=== PATIENT | female | born 1970 | race Caucasian/White ===

== ENCOUNTER → 2016-09-17 | Outpatient (CLI) | payer OTHER, BC, MEDICARE ==
[~2016-09-17] MED LIST: /DULO30CA PO; ABIL5TAB PO; ACET500C; ALLE25CA PO; ALPR1TAB3 PO; AMITIZA PO; AMRIX; BACL10TA2 PO; BACL5TA PO; BENA25CA2 PO; CALCIUM PO; CELE40TA PO; CHEL50TA PO; CINN1CAP2 PO; CINN1CAP6 PO; DEXT10CA5 PO; DEXT10TA2 PO; DEXTROAMPHETAMINE PO; DULC5TAB PO; DULCOLAX PO; ECHI400C2 PO; ECHICAP PO; ELMIRON PO; FENO160T10 PO; FERR325T3 PO; FIORICET PO; FLEXERIL PO; FLON0.05 INH; FLON0.054; FLON1SPR; GARC500T PO; GINK1TAB PO; HYDR-3363 PO; HYDR-3716 PO; HYDR25T PO; IBUP200T45 PO; IBUP800T PO; IMIT100T PO; KAPIDEX PO; KEPP1TAB2 PO; KEPPRA PO; LAMI50TA2 PO; LATU20TA PO; LEVO25TABR OR; LEVO75TA4 PO; LIDO1CRE14 TOP; LIDO1CRE2 TOP; LIDO4CRE4 TOP; LIDO5DIS TOP; LIDOCAINE/PRILOCAINE EXT; LOPR50TA PO; MAGN250T2 PO; MAGN500C PO; MAGNESI PO; METFPOW4 PO; MIRALEX PO; MULTCAP PO; MULTIVIT PO; NORT25CA2 PO; NORT50CA PO; OCEA0.654; OMEG100011 PO; OPAN5TAB3 PO; OXYC10TA97 PO; PENT10CA PO; PERC5TAB8; PERC5TAB8 PO; PERI-COLACE PO; PHEN 25 PO; PHEN100T2 PO; PHEN1TAB80 PO; POTA595T8 PO; PRIL20CA9 PO; PROBCAP14 PO; PROBIOTICS PO; PROM-190 PO; RANI150T PO; RITA10TA OR; RITA10TA PO; SERO200T PO; SOMA350T PO; TIZA4CAP3 PO; TIZA4TAB3 PO; TRIC145T19 OR; TRILIPEX PO; TRILIPIX; TROS20TA3 PO; TYLE325T5 PO; TYLENOL #3 OR; VESICARE; VESICARE PO; VIT D 2000 PO; VITA1CAP2 PO; VITA400C; VITA400C PO; VITAMIN D50000 UNT PO; XANA0.25 PO; XANA0.5T PO; XANA1TAB2 PO; ZINC PO; ZINC30TA3 PO; [UNRECOGNIZED DRUG - CODE] PO; [UNRECOGNIZED DRUG - CODE] PO; [UNRECOGNIZED DRUG - OTHER] PO; amitiza PO; chromium PO; iodine PO; saline nasal spray
--- NOTE | 2016-09-27 00:02 | ECWPNPC ---
PATIENT NAME: JASPER PRIEST : 1970 GENDER: FEMALE VISIT DATE: 09/17/2016 DISCHARGE DATE: 09/17/16 1635 VISIT LOCKED DATE TIME: PHYSICIAN: HIRAL JETER RESOURCE: HIRAL JETER REASON FOR APPOINTMENT 1. W/C LEFT SHOULDER PAIN HISTORY OF PRESENT ILLNESS HISTORY OF PRESENT ILLNESS: PAIN THE PATIENT DESCRIBES THE PAIN... 45 YEAR OLD FEMALE PATIENT WITH HISTORY OF CHRONIC SHOULDER PAIN. PATIENT DESCRIBES THE PAIN ACHING, BURNING, SHARP, STABBING, TENDER, THROBBING, SORE, SHOOTING, AND HAVING IT ALL THE TIME WITH THE A PAIN SCORE OF 8/10. MRS. PRIEST WAS HURT IN A WORK RELATED INJURY IN 1999 WHEN SHE WAS USING A CONCETTA LIFT AT [facility] AND WAS PULLING THE CONCETTA LIFT AND SOMEONE HAD HELD ONTO THE LIFT AND SHE HURT HER SHOULDER IN THE PROCESS OF PULLING IT. PATIENT HAS RECEIVED ONE SHOULDER SURGERY IN EFFORT TO REPAIR TEARS BUT THE PATIENT STATES THAT IT IS STILL DIFFICULT TO MOVE HER SHOULDER AND SHE IS IN CONSTANT PAIN. CURRENTLY THE PATIENT IS USING TIZANIDINE, HYDROCODONE, AND LIDOCAINE CREAM TO HELP WITH THE PAIN AND SHE STATES THAT IT DOES HELP TO TAKE THE EDGE OFF. PATIENT DOES REPORT SEVERE CONSTIPATION FROM THIS MEDICATION AND STATES THAT SHE GOES SEVERAL DAYS WITHOUT BOWEL MOVEMENT. WHEN THE PATIENT DOES HAS A BOWEL MOVEMENT SHE STATES THAT IT IS VERY PAINFUL. PATIENT REPORTS TRYING PRESCRIBED LAXATIVES AND STOOL SOFTENERS, OVER THE COUNTER MEDICATION, AND DRINKING SIGNIFICANT AMOUNT OF WATER WITH NO RELIEF FROM THE CONSTIPATION. MRS. PRIEST WAS UNABLE TO RECEIVE THE PENNSAID OINTMENT IT DID NOT GET APPROVED BY INSURANCE. PATIENT REPORTS THAT ANY MOVEMENT OF HER SHOULDER INCREASES THE PAIN IN HER SHOULDER. MRS. PRIEST REPORTS HAVING TROUBLE SLEEPING DUE TO THE PAIN. PATIENT DENIES UNEXPLAINABLE WEIGHT LOSS, FEVER, CHILLS, NEW CHANGES ON HER URINARY CONTROL. FALL RISK SCREENING: SCREENING :NO FALLS IN THE PAST YEAR CURRENT MEDICATIONS TAKING LIDOCAINE 4 % CREAM SMALL AMT EXTERNALLY Q 6 HRS TO LEFT SHOULDER PRN PAIN TAKING ELMIRON 100 MG CAPSULE 1 CAPSULE ON AN EMPTY STOMACH ORALLY THREE TIMES A DAY TAKING XANAX 1 MG TABLET ORALLY FOUR TIMES DAILY TAKING KEPPRA 750 MG TABLET ORALLY EVERY 12 HRS TAKING FLONASE 50 MCG/ACT SUSPENSION 1 PUFF IN EACH NOSTRIL NASALLY ONCE DAILY NEEDED, NOTES: 6--16 TAKING PHENERGAN 25 MG/ML SOLUTION 0.5 ML NEEDED INJECTION EVERY 4 HRS TAKING PYRIDIUM 100 MG TABLET DIRECTED ORALLY TAKING BENADRYL 25 MG CAPSULE 1 CAPSULE ORALLY EVERY 6 HRS TAKING VITAMIN D3 2000 UNIT CAPSULE 1 TABLET ORALLY ONCE A DAY TAKING DULCOLAX 5 MG TABLET DELAYED RELEASE 2 TABLETS NEEDED FOR CONSTIPATION ORALLY ONCE A DAY TAKING HYDROXYZINE HCL 25 MG TABLET 1 TABLET NEEDED ORALLY EVERY 8 HRS TAKING SYNTHROID 75 MCG TABLET 1 TABLET ORALLY ONCE A DAY TAKING TROSPIUM CHLORIDE 20 MG TABLET 1 TABLET AT BEDTIME ON AN EMPTY STOMACH ORALLY BID TAKING PRILOSEC 20MG 20MG TABLET ORAL BID TAKING FENOFIBRATE 160 MG TABLET 1 TABLET WITH A MEAL ORALLY ONCE A DAY TAKING ZINC 50 MG TABLET 1 TABLET ORALLY ONCE A DAY TAKING MAGNESIUM 500 MG TABLET 1 TABLET WITH A MEAL ORALLY ONCE A DAY TAKING POTASSIUM GLUCONATE 595 MG TABLET ORALLY TAKING OMEGA-3 KRILL OIL 300 MG CAPSULE ORALLY TAKING CALCIUM 1000 MG 1 TAB ORAL DAILY TAKING PROBIOTIC CAPSULE ORALLY TAKING GARCINIA CAMBOGIA-CHROMIUM 500-200 MG-MCG TABLET ORALLY TAKING GINKGO BILOBA 400 MG CAPSULE ORALLY TAKING ECHINACEA COMB/FERNÁNDEZ SEAL CAPSULE ORALLY TAKING SALINE NASAL SPRAY 0.65 % SOLUTION NASALLY , NOTES: 1 WEEK TAKING DEXTROAMPHETAMINE SULFATE ER 10 MG CAPSULE EXTENDED RELEASE 24 HOUR 2 CAPSULES IN AM, 1 AT NOON ORALLY TAKING ZANAFLEX 4 MG TABLET 1 TABLET NEEDED ORALLY EVERY 8 HRS WORKERS COMP TAKING HYDROCODONE-ACETAMINOPHEN 7.5-325 MG TABLET 1 TABLET NEEDED ORALLY EVERY 6 HOURS PRN PAIN MDD=2 TAKING FOLIC ACID 1 MG TABLET ORALLY TAKING ZANTAC 150 MG TABLET 1 TABLET AT BEDTIME ORALLY BID TAKING MECLIZINE HCL 25 MG TABLET CHEWABLE 1 TABLET TID ORALLY 3 A DAY TAKING NORCO 7.5-325 MG TABLET 1 TABLET ORALLY EVERY 6 HRS PRN PAIN MDD=4 TAKING DRONABINOL 5 MG CAPSULE 1 CAPSULE BEFORE LUNCH AND SUPPER ORALLY TWICE A DAY NOT-TAKING PENNSAID 2 % SOLUTION 2 APPLICATIONS TO AFFECTED AREA TRANSDERMAL TWICE A DAY FOR PAIN, NOTES: W/C WILL NOT APPROVE NOT-TAKING LATUDA 20 MG TABLET 2 TABLETS WITH FOOD ORALLY ONCE A DAY NOT-TAKING SUMATRIPTAN SUCCINATE 100 MG TABLET DIRECTED ORALLY NOT-TAKING MOTRIN IB 200 MG TABLET 1 TABLET ORALLY EVERY 6 HRS NOT-TAKING FERROUS SULFATE 325 (65 FE) MG TABLET 1 TABLET ORALLY ONCE A DAY NOT-TAKING KAPIDEX 60 MG CAPSULE DELAYED RELEASE DIRECTED ORALLY NOT-TAKING AMITIZA 24 MCG CAPSULE 1 CAPSULE WITH FOOD ORALLY TWICE A DAY NOT-TAKING LIDODERM 5 % PATCH 1 PATCH TO INTACT SKIN REMOVE AFTER 12 HOURS EXTERNALLY ONCE A DAY NOT-TAKING MIRALAX PACKET 1 PACKET MIXED WITH 8 OUNCES OF FLUID ORALLY ONCE A DAY NOT-TAKING TRILIPIX 135 MG CAPSULE DELAYED RELEASE 1 CAPSULE ORALLY ONCE A DAY NOT-TAKING VESICARE 10 MG TABLET 1 TABLET ORALLY ONCE A DAY NOT-TAKING MULTIVITAMINS CAPSULE DIRECTED ORALLY NOT-TAKING VITAMIN E 400 UNIT TABLET CHEWABLE DIRECTED ORALLY NOT-TAKING KEPPRA 750 MG TABLET 2 TABLETS ORALLY EVERY 12 HRS NOT-TAKING OMEPRAZOLE 20 MG CAPSULE DELAYED RELEASE 2 CAPSULES ORALLY ONCE A DAY NOT-TAKING CINNAMON PLUS CHROMIUM 100-500 MCG-MG CAPSULE ORALLY NOT-TAKING TROSPIUM CHLORIDE 20 MG TABLET 1 TABLET AT BEDTIME ON AN EMPTY STOMACH ORALLY ONCE A DAY NOT-TAKING METFORMIN HCL 1000 MG TABLET 1 TABLET WITH MEALS ORALLY TWICE A DAY NOT-TAKING FLEXERIL 10 MG TABLET 1 TABLET ORALLY THREE TIMES A DAY NOT-TAKING OXYCONTIN 20 MG TABLET EXTENDED RELEASE 12 HOUR 1 TABLET ORALLY EVERY 12 HRS NOT-TAKING PERCOCET 5-325 MG TABLET 1 TABLET NEEDED ORALLY EVERY 6 HRS NOT-TAKING TYLENOL/CODEINE #3 300-30 MG TABLET 1 TABLET ORALLY ONE TAB AT ONSET OF MIGRAINE; MAY REPEAT X1 IN 4 HRS MDD=2 NOT-TAKING NORTRIPTYLINE HCL 50 MG CAPSULE 1 CAPSULE AT BEDTIME ORALLY ONCE A DAY NOT-TAKING ALPRAZOLAM 1 MG TABLET 1 TABLET ORALLY TWICE A DAY MEDICATION LIST REVIEWED AND RECONCILED WITH THE PATIENT PAST MEDICAL HISTORY FIBROMYALGIA HYPERTENTION HIGH CHOLESTEROL CHRONIC MIGRAINES DYSPAREUNIA HEMANGIOMA SEIZURES/NARCOLEPSY IC KIDNEY STONES IBS GERD CHRONIC PAIN PTSD VITAMIN D DEFICIENCY IRON DEFICIENCY ANEMIA HYPOTHYROIDISM ANXIETY DEPRESSION OSTEOARTHRITIS DDD-C6-7 CERVICAL NEURALGIA DIPLOPIA EXTREMITY PARESTHESIAS GALLBLADDER STONES OVARIAN CYST FIBRIODS HYPOGLYCEMIA BIPOLAR CARPAL TUNNEL -BILATERAL PATELLO FEMORAL SYNDROME-ZEENAT KNEES RENAL CANCER RIGHT ALLERGIES PENICILLIN (FOR ALLERGIES USE ONLY): RASH,ELEVATED TEMP: ALLERGY CYPROHEPTADINE HCL: RASH,HEART PALPITATIONS: ALLERGY DARVOCET-N 50: EXACERBATES HEADACHES: ALLERGY TOPAMAX: PALPITATIONS: ALLERGY REMERON: SEVERE HEADACHES: ALLERGY MOBIC: RECTAL BLEEDING ,ABDOMINAL PAIN: ALLERGY CELEBREX: THROAT EDEMA: ALLERGY NAPROSYN: THROAT EDEMA: ALLERGY EFFEXOR: SEVERE HEADACHES: ALLERGY VERAPAMIL HCL: SOB,LOWER PERIPHAL EDEMA ,ABDOMINAL DISTENTION: ALLERGY LYRICA: ELEVATED TEMP,GUMS RECECDED: ALLERGY DEPAKOTE: HEART PALPITATIONS: ALLERGY FENTANYL: SEVERE ITCHING: ALLERGY NUVIGIL: MIGRAINE HEADACHES,VERTIGO,DIZZINESS: ALLERGY CYMBALTA: HEADACHES: ALLERGY GANDOLINUM MRI DYE: CARDIAC ISSUES: ALLERGY CIPRO: CHEST PAIN,SOB,LBP: ALLERGY NORTRIPYTLINE HCL: HEADACHES: ALLERGY RITALIN: HEART PALPITATIONS: ALLERGY ADHESIVE BANDAGES: SENSITIVITY: ALLERGY CILANTRO: SOB,HEART PALPITATIONS: ALLERGY ASPARTAME: MIGRAINES: ALLERGY SEROQUEL: MULTIPLE SIDE EFFECTS: ALLERGY ABILIFY: CONSTIPATION DEPRESSION: SIDE EFFECTS CELEXA: MIGRAINES: SIDE EFFECTS LAMOTRIGINE: RAGE IRRITABILITY: SIDE EFFECTS ZYPREXA: MIGRAINES: SIDE EFFECTS MOTRIN: SIDE EFFECTS SURGICAL HISTORY OVARIES AND FALLOPIAN TUBES AND ADHESION 12/05/15 TUBAL LIGATION 01/06/1993 CYSTOSCOPES X2-3 2006 HYSTERSCOPES X2 08/08/2009 COLONSCOPY ENDOSCOPY LEFT LABRAL TEAR REPAIR WITH A PARTIAL REMOVAL OFCOLLAR BONE 12/23/2004 TOOTH EXTRACTIONS BX RIGHT KIDNEY 03/26/2016 RIGHT PARTIAL NEPHRECTOMY 05/04/16 FAMILY HISTORY NO FAMILY HISTORY DOCUMENTED. SOCIAL HISTORY GENERAL: TOBACCO USE ARE YOU A:NONSMOKER LEARNING BARRIERS / SPECIAL NEEDS ORIENTED TO PLAN OF CARE: PATIENT, PAIN MANAGEMENT PATIENT, ORIENTED TO PLAN OF CARE: PATIENT, PAIN MANAGEMENT PATIENT. NEW PATIENT PAIN DIARY TODAY'S VISITNOTES FROM 0-10, WHAT LEVEL IS YOUR PAIN TODAY?0 PAIN CLINIC PFS, CLERGY, PUBLIC HEALTH REFERRALS PFS REFERRAL NEEDED?NO CLERGY REFERRAL NEEDED?NO PUBLIC HEALTH REFERRAL NEEDED?NO WAS THE PROVIDER NOTIFIED OF ANY PERTINENT INFO?NO PFS REFERRAL NEEDED?NO CLERGY REFERRAL NEEDED?NO PUBLIC HEALTH REFERRAL NEEDED?NO WAS THE PROVIDER NOTIFIED OF ANY PERTINENT INFO?NO WITH 2 CHILDREN. HOSPITALIZATION/MAJOR DIAGNOSTIC PROCEDURE HYSTERECTOMY 01/06/93 08/27/91 CHILDBIRTH 01/05/93 CHILDBIRTH REVIEW OF SYSTEMS CONSTITUTIONAL: ANY CHANGE IN YOUR MEDICAL CONDITION? NO . CHILLS NO . FEVER NO . INFECTION: DO YOU HAVE NEW INFECTIONS? NO . DO YOU HAVE HISTORY OF MRSA? NO . MUSCULOSKELETAL: ANY NEW PATTERNS OF PAIN OR NUMBNESS? YES PT REPORTS PAIN FROM LEFT SHOULDER RADINATING UP THE LEFT NECK, BACK OF HEAD AND UP AROUND FOREHEAD CAUSING SEVER HEADACHES WITH VISION LOSS. ALSO REPORTS NEW ABDOMINAL PAIN . GASTROENTEROLOGY: ANY NEW CHANGE IN BOWEL CONTROL? YES INCREASED CONSTIPATION . GENITOURINARY: ANY NEW CHANGE IN BLADDER CONTROL? YES PT REPORTS DECREASED URINE OUTPUT . IS THERE A CHANCE YOU COULD BE ? NO . HEMATOLOGY/LYMPH: DO YOU TAKE ANY BLOOD THINNERS? (FOR EXAMPLE- COUMADIN, PLAVIX, AGGRENOX, PLATEL, PRADAXA, OR XARELTO) YES ELMIRON . WHEN WAS YOUR LAST DOSE? DATE: TIME: . NEUROLOGY: HAVE YOU FALLEN IN THE PAST 6 MONTHS? NO . ANY NEW EXTREMITY NUMBNESS OR WEAKNESS? NO . CARDIOLOGY: DO YOU HAVE A PACEMAKER OR DEFIBRILLATOR? NO . RESPIRATORY: HAVE YOU BEEN SICK IN THE PAST WEEK? YES PT REPORTS NAUSEA/VOMITING/HEADACHES AND FEVER OF 101 . FEVER NO . FLU LIKE SYMPTOMS? NO . COUGH NO . INTEGUMENTARY: DO YOU HAVE ANY RASHES OR OPEN SORES? NO . ALLERGIC/IMMUNO: ARE YOU ALLERGIC TO SHELLFISH OR IV DYE? YES . ANY NEW ALLERGIES? NO . PSYCHIATRIC: DO YOU HAVE THOUGHTS OF HURTING YOURSELF OR SOMEONE ELSE? NO . ARE YOU ABUSED, NEGLECTED, OR IN AN UNSAFE ENVIRONMENT? NO . ENDOCRINOLOGY: ARE YOU DIABETIC? NO . OTHER: DO YOU NEED ANY PRESCRIPTIONS? NO . IF YES, PLEASE LIST: ____ . ANY NEW PROBLEMS WITH YOUR MEDICATIONS? NO . WHEN DID YOU LAST EAT? ____ . WHEN DID YOU LAST DRINK? ____ . WHAT DID YOU LAST DRINK? ____ . NAME OF PERSON DRIVING YOU HOME? ____ . DO YOU HAVE ANY OTHER QUESTIONS OR CONCERNS YES PT WANTS TO KNOW IF A RESPONSE TO THE WORKMAN'S COMP HEARING LETTER HAS BEEN DONE? WOULD ALSO LIKE SOMETHING FOR CONSTIPATION R/T PAIN MEDS&NBSP;. REVIEWED BY: PROVIDER: HIRAL JETER MD . VITAL SIGNS WT 129 LBS, HT 66 IN, BMI 20.82 INDEX, BP 132/90 MM HG, HR 109 /MIN, RR 16 /MIN, TEMP 98.6 F, OXYGEN SAT % 98, NA INITIALS TL 1406, REVIEWED BY: LUIS ARMANDO. EXAMINATION : PATIENT IS ALERT O X 3 AND COOPERATIVE. TENDERNESS IN THE LEFT SHOULDER AREA. HYPERPATHIA IN THE BACK SHOULDER REGION. ALLODYNIA OVER SURFICAL SCAR OF RIGHT SHOULDER. LEFT ARM WEAKER THEN THE RIGHT AT EXTENSION AND FLEXION. LEFT HAND HELMINTHOLOGIST WEAKER THEN THE RIGHT. ABDUCTION OF LEFT ARM IS 30 DEGREES WHILE RIGHT ARM IS 90 DEGREES. MRI OF THE LEFT SHOULDER SHOWS TENDINITIS AND A ANTERIOR LABRAL TEAR. ASSESSMENTS SHOULDER PAIN, LEFT - M25.512 (PRIMARY) NEUROPATHY OF LEFT SHOULDERS/P LEFT SHOULDER SURGERY. TREATMENT SHOULDER PAIN, LEFT REFILL LIDOCAINE CREAM, 4 %, 1 STRIP, EXTERNALLY 2 INCHES, Q 6 HRS TO LEFT SHOULDER PRN PAIN, 30 DAYS, 3 TUBES, REFILLS 2 REFILL NORCO TABLET, 7.5-325 MG, 1 TABLET, ORALLY, EVERY 6 HRS PRN PAIN MDD=4, 30 DAY(S), 115, REFILLS 0 START MOVANTIK TABLET, 25 MG, 1 TABLET IN THE MORNING, ORALLY, ONCE A DAY PRN FOR CONSTIPATION, 30 DAY(S), 30, REFILLS 1 NOTES: WE DISCUSSED SEVERAL ISSUES WITH MRS. PRIEST'S PAIN MANAGEMENT CASE. AT THIS TIME THE PATIENT WILL CONTINUE WITH THE SAME MEDICATION REGIME BEFORE. PATIENT IS USING THE LIDOCAINE 5% FOR THE NEUROPATHIC PAIN OVER THE RIGHT SHOULDER ESPECIALLY OVER THE RIGHT SURGICAL SCAR AND SURROUNDING AREA. PATIENT USES THE NORCO FRO THE SOMATIC PAIN AND REPORTS INCREASED FUNCTIONALITY AND MOBILITY WITH A DECREASE IN PAIN WHILE USING THIS MEDICATION. MRS. PRIEST REPORTS BEING ABLE TO PERFORM EVERYDAY ACTIVITIES SUCH SHOWERING AND PUTTING CLOTHES ON WHILE USING THE MEDICATION. PATIENT IS USING TIZANIDINE FOR THE MUSCLE SPASMS AND PAIN AND REPORTS WHEN SHE TRIED TO STOP USING THIS MEDICATION HER MUSCLE SPASMS BECAME SO SEVERE SHE WAS UNABLE TO PERFORM EVERYDAY ACTIVITIES. PATIENT WILL START MOVANTIK FOR THE CONSTIPATION FROM THE NARCOTICS. MRS. PRIEST REPORTS USING SEVERAL MEDICATIONS SUCH COLACE, SENNA, MIRALAX, DUCLOUX, ALONG WITH OTHER OVER THE COUNTER MEDICATIONS WITH NO RELIEF FROM THE CONSTIPATION. THE PATIENT WILL BE PRESCRIBED PENNSAID OINTMENT FOR THE PAIN OVER THE RIGHT SHOULDER. PATIENT DENIES USE OF ILLEGAL SUBSTANCES, DENIES USE OF ILLEGAL DRUGS, DENIES ABUSE OF ANY MEDICATION AND STATES THAT SHE IS ONLY USING THE MEDICATION FOR PAIN MANAGEMENT. URINE TOXICOLOGY DONE ON 06/27/16 SHOWS CONSISTENT RESULTS WITH THE PATIENTS MEDICATION LIST. I WOULD LIKE TO SPEAK WITH PATIENT'S PSYCHIATRIST TO DISCUSS MEDICATIONS. PATIENT AGREES WITH THE PAIN AT THIS TIME. INSTRUCTIONS WERE GIVEN, QUESTIONS WERE ANSWERED, PATIENT REPORTS UNDERSTANDING AND AGREES WITH THE PLAN. I, DIAZ GRULLON, DOCUMENTED THE ABOVE INFORMATION ACTING A SCRIBE FOR DR. JETER. I HAVE REVIEWED THE ABOVE DOCUMENT, WRITTEN BY DIAZ CORRIGAN AND I VERIFY THAT IT IS ACCURATE. OTHERS REFILL ZANAFLEX TABLET, 4 MG, 1 TABLET NEEDED, ORALLY FOR SPASMS AND PAIN, EVERY 8 HRS WORKERS COMP MDD3, 30 DAY(S), 90, REFILLS 1 PROCEDURES PN WORKMANS' COMP OPINION IN YOUR OPINION, WAS THE INCIDENT THAT THE PATIENT DESCRIBED THE COMPETENT MEDICAL CAUSE OF THIS INJURY/ILLNESS? YES ARE THE PATIENT'S COMPLAINTS CONSISTENT WITH HIS/HER HISTORY OF THE INJURY/ILLNESS? YES IS THE PATIENT'S HISTORY OF THE INJURY/ILLNESS CONSISTENT WITH YOUR OBJECTIVE FINDING? YES WHAT IS THE PERCENTAGE OF TEMPORARY IMPAIRMENT? MARKED = 75% IS THE PATIENT WORKING? NO DOCTOR ON SITE: HIRAL COLLINS MD PROCEDURE CODES FA211 ESTABILISHED PATIENT [facility] FACILITY CHARGE G8427 DOC MEDS VERIFIED W/PT OR RE G8730 PAIN ASSESS POS TOOL F/U PLAN DOC FOLLOW UP 3 WEEKS ELECTRONICALLY SIGNED BY HIRAL JETER MD ON 09/26/2016 AT 06:00 PM EST DISCLAIMER : THIS IS A VISIT SUMMARY EXTRACTED FROM THE [employer] CHART. IT IS NOT A COPY OF THE [employer] PROGRESS NOTE. HECTOR
== END ==
LOC: M PAIN 14:00
PROVIDERS: ATTEND Anesthesiology
DX: Z09 Encounter for follow-up examination after completed treatment for conditions other than malignant neoplasm (principal); G89.29 Other chronic pain; M25.512 Pain in left shoulder; M79.7 Fibromyalgia; I10 Essential (primary) hypertension; E78.00 Pure hypercholesterolemia, unspecified; G43.909 Migraine, unspecified, not intractable, without status migrainosus; G40.919 Epilepsy, unspecified, intractable, without status epilepticus; K21.9 Gastro-esophageal reflux disease without esophagitis; K58.9 Irritable bowel syndrome, unspecified; K59.00 Constipation, unspecified; F43.10 Post-traumatic stress disorder, unspecified; E55.9 Vitamin D deficiency, unspecified; D50.9 Iron deficiency anemia, unspecified; E03.9 Hypothyroidism, unspecified; F41.9 Anxiety disorder, unspecified; M19.90 Unspecified osteoarthritis, unspecified site; M50.323 Other cervical disc degeneration at C6-C7 level; H53.2 Diplopia; F31.9 Bipolar disorder, unspecified; M22.2X1 Patellofemoral disorders, right knee; M22.2X2 Patellofemoral disorders, left knee; Z88.0 Allergy status to penicillin; Z88.5 Allergy status to narcotic agent; Z88.6 Allergy status to analgesic agent; L23.1 Allergic contact dermatitis due to adhesives; Z88.8 Allergy status to other drugs, medicaments and biological substances; Z79.891 Long term (current) use of opiate analgesic; Z79.899 Other long term (current) drug therapy; Z85.528 Personal history of other malignant neoplasm of kidney

== ENCOUNTER → 2016-11-01 | Outpatient (CLI) | payer MEDICARE, BC ==
[~2016-11-01] MED LIST changes: +ISOVUE-370 76% 100ML VIAL (Q9967) As Ordered ONE
--- NOTE | 2016-11-01 15:04 | REP ---
Chest two views HISTORY: Renal cell cancer Comparison: 04/20/2016 The lungs are clear. The heart is normal in size. The pulmonary vasculature is normal in appearance. The bony structure is intact. IMPRESSION: No acute disease. Signed by Morris Figueroa MD 11/01/2016 02:55 P
--- NOTE | 2016-11-01 15:15 | REP ---
CT STUDY OF THE ABDOMEN AND PELVIS WITHOUT AND WITH IV CONTRAST: WITHOUT ORAL CONTRAST. HISTORY: History of renal cell carcinoma of the right kidney status post partial right nephrectomy. Comparison CT study May 06, 2016 and February 17, 2016 CT contrast dose: 100 mL Isovue [address] FINDINGS: Preliminary customer energy specialist view of the abdomen shows a normal bowel gas pattern. The lung bases are clear. The liver is normal in size and homogeneous in texture on pre and postcontrast images. There is a small stable low density lesion in the posteroinferior spleen measuring 1.3 cm compatible with a cyst. This is unchanged. No focal hepatic mass lesion is seen. Large peripherally calcified gallstones are again noted in the gallbladder. There are some curvilinear calcific opacities at the partial nephrectomy site at the upper pole region of the right kidney but no evidence of recurrent mass lesion is seen. No evidence of abnormal enhancement is seen. No evidence of regional adenopathy is seen. Renal veins are patent and enhance homogeneously. Vena cava is unremarkable. No left renal mass lesion is observed. No pancreatic abnormality is seen. No periaortic or pelvic lymphadenopathy is observed. Urinary bladder is intact. The uterus is surgically absent. Bone window settings show no visible bony destructive lesion. IMPRESSION: 1. Status post partial right nephrectomy with some postoperative changes at the nephrectomy site but no evidence of recurrent mass lesion. No evidence of intra-abdominal adenopathy or metastasis. 2. Cholelithiasis. 3. Stable small 1.3 cm splenic cyst. Signed by Kyle Guillory MD 11/01/2016 03:28 P
== END ==
LOC: M RAD 13:53
PROVIDERS: ATTEND Urology
DX: C64.1 Malignant neoplasm of right kidney, except renal pelvis (principal); K80.20 Calculus of gallbladder without cholecystitis without obstruction; D73.4 Cyst of spleen
CPT/HCPCS: 71020; 74170; Q9967

== ENCOUNTER → 2016-12-14 | Outpatient (CLI) | payer OTHER, BC, MEDICARE ==
[~2016-12-14] MED LIST changes: -ISOVUE-370 76% 100ML VIAL (Q9967) As Ordered ONE
--- NOTE | 2016-12-24 00:16 | ECWPNPC ---
PATIENT NAME: JASPER PRIEST : 1970 GENDER: FEMALE VISIT DATE: 12/14/2016 DISCHARGE DATE: 12/14/16 1652 VISIT LOCKED DATE TIME: PHYSICIAN: HIRAL JETER RESOURCE: HIRAL JETER REASON FOR APPOINTMENT 1. LEFT SHOULDER PAIN W/C HISTORY OF PRESENT ILLNESS GENERAL: 46 YEAR OLD MALE PATIENT WITH HISTORY OF CHRONIC LEFT SHOULDER PAIN. PATIENT DESCRIBES THE PAIN ACHING, BURNING, SHARP, STABBING, TENDER, THROBBING, SORE, SHOOTING, AND HAVING IT ALL THE TIME WITH A PAIN SCORE OF 5/10. MRS. PRIEST WAS HURT IN A WORK RELATED INJURY IN 1999 WHEN SHE WAS USING A [employer]CETTA LIFT AT [facility] AND WAS PULLING THE CONCETTA LIFT AND SOMEONE HAD HELD ONTO THE LIFT AND SHE HURT HER SHOULDER IN THE PROCESS OF PULLING IT. PATIENT HAS RECEIVED ONE SHOULDER SURGERY IN EFFORT TO REPAIR TEARS BUT THE PATIENT STATES THAT IT IS STILL DIFFICULT TO MOVE HER SHOULDER AND SHE IS IN CONSTANT PAIN. PATIENT IS CURRENTLY USING TIZANIDINE, HYDROCODONE, LIDOCAINE, AND MOVANTIX. PATIENT STATES THAT THE MEDICATION KEEPS HER MOBILE AND FUNCTIONAL EXCEPT THE MOVANT WHICH DOES NOT AID IN BOWEL MOVEMENT. PATIENT WOULD LIKE TO USE MIRALAX WHICH SHE HAS USED IN THE PAST AND HAS AIDED IN RELIEF. PATIENT DENIES UNEXPLAINABLE WEIGHT LOSS, FEVER, CHILLS, NEW CHANGES ON HER URINARY OR BOWEL CONTROL. HISTORY OF PRESENT ILLNESS: PAIN THE PATIENT DESCRIBES THE PAIN... FALL RISK SCREENING: SCREENING :NO FALLS IN THE PAST YEAR CURRENT MEDICATIONS TAKING ZANAFLEX 4 MG TABLET 1 TABLET NEEDED ORALLY FOR SPASMS AND PAIN EVERY 8 HRS WORKERS COMP MDD3 TAKING LIDOCAINE 4 % CREAM 1 STRIP EXTERNALLY 2 INCHES Q 6 HRS TO LEFT SHOULDER PRN PAIN TAKING ELMIRON 100 MG CAPSULE 1 CAPSULE ON AN EMPTY STOMACH ORALLY THREE TIMES A DAY TAKING XANAX 1 MG TABLET ORALLY FOUR TIMES DAILY TAKING KEPPRA 750 MG TABLET ORALLY EVERY 12 HRS TAKING FLONASE 50 MCG/ACT SUSPENSION 1 PUFF IN EACH NOSTRIL NASALLY ONCE DAILY NEEDED, NOTES: 02-19-16 TAKING PHENERGAN 25 MG SUPPOSITORY 1 SUPPOSITORY OR 25 MG TABAS NEEDED RECTAL EVERY 6 HRS TAKING PYRIDIUM 100 MG TABLET DIRECTED ORALLY TAKING BENADRYL 25 MG CAPSULE 1 CAPSULE ORALLY EVERY 6 HRS NEEDED TAKING VITAMIN D3 2000 UNIT CAPSULE 1 TABLET ORALLY ONCE A DAY TAKING DULCOLAX 5 MG TABLET DELAYED RELEASE 2 TABLETS NEEDED FOR CONSTIPATION ORALLY ONCE A DAY TAKING HYDROXYZINE HCL 25 MG TABLET 1 TABLET NEEDED ORALLY EVERY 8 HRS TAKING SYNTHROID 75 MCG TABLET 1 TABLET ORALLY ONCE A DAY TAKING TROSPIUM CHLORIDE 20 MG TABLET 1 TABLET AT BEDTIME ON AN EMPTY STOMACH ORALLY BID TAKING PRILOSEC 20MG 20MG TABLET ORAL BID TAKING FENOFIBRATE 160 MG TABLET 1 TABLET WITH A MEAL ORALLY ONCE A DAY TAKING ZINC 50 MG TABLET 1 TABLET ORALLY ONCE A DAY TAKING MAGNESIUM 500 MG TABLET 2500MG 1 TABLET WITH A MEAL ORALLY TWICE DAILY TAKING POTASSIUM GLUCONATE 595 MG TABLET ORALLY ONCE A DAY TAKING OMEGA-3 KRILL OIL 300 MG CAPSULE ORALLY DAILY TAKING CALCIUM 1000 MG 1 TAB ORAL DAILY TAKING PROBIOTIC CAPSULE ORALLY DAILY TAKING GARCINIA CAMBOGIA-CHROMIUM 500-200 MG-MCG TABLET ORALLY DAILY TAKING GINKGO BILOBA 400 MG CAPSULE ORALLY DAILY TAKING ECHINACEA COMB/FERNÁNDEZ SEAL CAPSULE ORALLY DAILY TAKING SALINE NASAL SPRAY 0.65 % SOLUTION NASALLY , NOTES: 1 WEEK TAKING DEXTROAMPHETAMINE SULFATE ER 10 MG CAPSULE EXTENDED RELEASE 24 HOUR 2 CAPSULES IN AM, 1 AT NOON ORALLY TAKING FOLIC ACID 1 MG TABLET ORALLY TAKING ZANTAC 150 MG TABLET 1 TABLET AT BEDTIME ORALLY BID TAKING MECLIZINE HCL 25 MG TABLET CHEWABLE 1 TABLET TID ORALLY 3 A DAY TAKING DRONABINOL 5 MG CAPSULE 1 CAPSULE BEFORE LUNCH AND SUPPER ORALLY TWICE A DAY TAKING MOVANTIK 25 MG TABLET 1 TABLET IN THE MORNING ORALLY ONCE A DAY PRN FOR CONSTIPATION TAKING NORCO 7.5-325 MG TABLET 1 TABLET ORALLY EVERY 6 HRS PRN PAIN MDD=2 NOT-TAKING PENNSAID 2 % SOLUTION 2 APPLICATIONS TO AFFECTED AREA TRANSDERMAL TWICE A DAY FOR PAIN, NOTES: W/C WILL NOT APPROVE NOT-TAKING LATUDA 20 MG TABLET 2 TABLETS WITH FOOD ORALLY ONCE A DAY NOT-TAKING SUMATRIPTAN SUCCINATE 100 MG TABLET DIRECTED ORALLY NOT-TAKING MOTRIN IB 200 MG TABLET 1 TABLET ORALLY EVERY 6 HRS NOT-TAKING FERROUS SULFATE 325 (65 FE) MG TABLET 1 TABLET ORALLY ONCE A DAY NOT-TAKING KAPIDEX 60 MG CAPSULE DELAYED RELEASE DIRECTED ORALLY NOT-TAKING AMITIZA 24 MCG CAPSULE 1 CAPSULE WITH FOOD ORALLY TWICE A DAY NOT-TAKING LIDODERM 5 % PATCH 1 PATCH TO INTACT SKIN REMOVE AFTER 12 HOURS EXTERNALLY ONCE A DAY NOT-TAKING MIRALAX PACKET 1 PACKET MIXED WITH 8 OUNCES OF FLUID ORALLY ONCE A DAY NOT-TAKING TRILIPIX 135 MG CAPSULE DELAYED RELEASE 1 CAPSULE ORALLY ONCE A DAY NOT-TAKING VESICARE 10 MG TABLET 1 TABLET ORALLY ONCE A DAY NOT-TAKING MULTIVITAMINS CAPSULE DIRECTED ORALLY NOT-TAKING VITAMIN E 400 UNIT TABLET CHEWABLE DIRECTED ORALLY NOT-TAKING KEPPRA 750 MG TABLET 2 TABLETS ORALLY EVERY 12 HRS NOT-TAKING OMEPRAZOLE 20 MG CAPSULE DELAYED RELEASE 2 CAPSULES ORALLY ONCE A DAY NOT-TAKING CINNAMON PLUS CHROMIUM 100-500 MCG-MG CAPSULE ORALLY NOT-TAKING TROSPIUM CHLORIDE 20 MG TABLET 1 TABLET AT BEDTIME ON AN EMPTY STOMACH ORALLY ONCE A DAY NOT-TAKING METFORMIN HCL 1000 MG TABLET 1 TABLET WITH MEALS ORALLY TWICE A DAY NOT-TAKING FLEXERIL 10 MG TABLET 1 TABLET ORALLY THREE TIMES A DAY NOT-TAKING OXYCONTIN 20 MG TABLET EXTENDED RELEASE 12 HOUR 1 TABLET ORALLY EVERY 12 HRS NOT-TAKING PERCOCET 5-325 MG TABLET 1 TABLET NEEDED ORALLY EVERY 6 HRS NOT-TAKING TYLENOL WITH CODEINE #3 300-30 MG TABLET 1 TABLET ORALLY ONE TAB AT ONSET OF MIGRAINE; MAY REPEAT X1 IN 4 HRS MDD=2 NOT-TAKING NORTRIPTYLINE HCL 50 MG CAPSULE 1 CAPSULE AT BEDTIME ORALLY ONCE A DAY NOT-TAKING ALPRAZOLAM 1 MG TABLET 1 TABLET ORALLY TWICE A DAY DISCONTINUED HYDROCODONE-ACETAMINOPHEN 7.5-325 MG TABLET 1 TABLET NEEDED ORALLY EVERY 6 HOURS PRN PAIN MDD=2 MEDICATION LIST REVIEWED AND RECONCILED WITH THE PATIENT PAST MEDICAL HISTORY FIBROMYALGIA HYPERTENTION HIGH CHOLESTEROL CHRONIC MIGRAINES DYSPAREUNIA HEMANGIOMA SEIZURES/NARCOLEPSY IC KIDNEY STONES IBS GERD CHRONIC PAIN PTSD VITAMIN D DEFICIENCY IRON DEFICIENCY ANEMIA HYPOTHYROIDISM ANXIETY DEPRESSION OSTEOARTHRITIS DDD-C6-7 CERVICAL NEURALGIA DIPLOPIA EXTREMITY PARESTHESIAS GALLBLADDER STONES OVARIAN CYST FIBRIODS HYPOGLYCEMIA BIPOLAR CARPAL TUNNEL -BILATERAL PATELLO FEMORAL SYNDROME-ZEENAT KNEES RENAL CANCER RIGHT ALLERGIES PENICILLIN (FOR ALLERGIES USE ONLY): RASH,ELEVATED TEMP: ALLERGY CYPROHEPTADINE HCL: RASH,HEART PALPITATIONS: ALLERGY DARVOCET-N 50: EXACERBATES HEADACHES: ALLERGY TOPAMAX: PALPITATIONS: ALLERGY REMERON: SEVERE HEADACHES: ALLERGY MOBIC: RECTAL BLEEDING ,ABDOMINAL PAIN: ALLERGY CELEBREX: THROAT EDEMA: ALLERGY NAPROSYN: THROAT EDEMA: ALLERGY EFFEXOR: SEVERE HEADACHES: ALLERGY VERAPAMIL HCL: SOB,LOWER PERIPHAL EDEMA ,ABDOMINAL DISTENTION: ALLERGY LYRICA: ELEVATED TEMP,GUMS RECECDED: ALLERGY DEPAKOTE: HEART PALPITATIONS: ALLERGY FENTANYL: SEVERE ITCHING: ALLERGY NUVIGIL: MIGRAINE HEADACHES,VERTIGO,DIZZINESS: ALLERGY CYMBALTA: HEADACHES: ALLERGY GANDOLINUM MRI DYE: CARDIAC ISSUES: ALLERGY CIPRO: CHEST PAIN,SOB,LBP: ALLERGY NORTRIPYTLINE HCL: HEADACHES: ALLERGY RITALIN: HEART PALPITATIONS: ALLERGY ADHESIVE BANDAGES: SENSITIVITY: ALLERGY CILANTRO: SOB,HEART PALPITATIONS: ALLERGY ASPARTAME: MIGRAINES: ALLERGY SEROQUEL: MULTIPLE SIDE EFFECTS: ALLERGY ABILIFY: CONSTIPATION DEPRESSION: SIDE EFFECTS CELEXA: MIGRAINES: SIDE EFFECTS LAMOTRIGINE: RAGE IRRITABILITY: SIDE EFFECTS ZYPREXA: MIGRAINES: SIDE EFFECTS MOTRIN: CAN NOT HAVE WHILE ON MEDICATION: SIDE EFFECTS SURGICAL HISTORY OVARIES AND FALLOPIAN TUBES AND ADHESION 12/05/15 TUBAL LIGATION 01/06/1993 CYSTOSCOPES X2-3 2006 HYSTERSCOPES X2 08/08/2009 COLONSCOPY ENDOSCOPY LEFT LABRAL TEAR REPAIR WITH A PARTIAL REMOVAL OFCOLLAR BONE 12/23/2004 TOOTH EXTRACTIONS BX RIGHT KIDNEY 03/26/2016 RIGHT PARTIAL NEPHRECTOMY 05/04/16 FAMILY HISTORY NO FAMILY HISTORY DOCUMENTED. SOCIAL HISTORY GENERAL: PAIN CLINIC PFS, CLERGY, PUBLIC HEALTH REFERRALS CLERGY REFERRAL NEEDED?NO WAS THE PROVIDER NOTIFIED OF ANY PERTINENT INFO?NO PFS REFERRAL NEEDED?NO PUBLIC HEALTH REFERRAL NEEDED?NO PATIENT: ____. WITH 2 CHILDREN. HOSPITALIZATION/MAJOR DIAGNOSTIC PROCEDURE HYSTERECTOMY 01/06/93 08/27/91 CHILDBIRTH 01/05/93 CHILDBIRTH REVIEW OF SYSTEMS CONSTITUTIONAL: ANY CHANGE IN YOUR MEDICAL CONDITION? NO . CHILLS NO . FEVER YES TEMP 100-102 FOR SEVERAL MOS PER PT . INFECTION: DO YOU HAVE NEW INFECTIONS? NO . DO YOU HAVE HISTORY OF MRSA? NO . MUSCULOSKELETAL: ANY NEW PATTERNS OF PAIN OR NUMBNESS? NO . GASTROENTEROLOGY: ANY NEW CHANGE IN BOWEL CONTROL? NO . GENITOURINARY: ANY NEW CHANGE IN BLADDER CONTROL? NO . IS THERE A CHANCE YOU COULD BE ? NO . HEMATOLOGY/LYMPH: DO YOU TAKE ANY BLOOD THINNERS? (FOR EXAMPLE- COUMADIN, PLAVIX, AGGRENOX, PLATEL, PRADAXA, OR XARELTO) YES ELMIRON . WHEN WAS YOUR LAST DOSE? DATE: TIME: . NEUROLOGY: HAVE YOU FALLEN IN THE PAST 6 MONTHS? YES NO ED EVAL . ANY NEW EXTREMITY NUMBNESS OR WEAKNESS? NO . CARDIOLOGY: DO YOU HAVE A PACEMAKER OR DEFIBRILLATOR? NO . RESPIRATORY: HAVE YOU BEEN SICK IN THE PAST WEEK? NO . FEVER YES 100-102 FOR MOS PER PT. . FLU LIKE SYMPTOMS? NO . COUGH NO . INTEGUMENTARY: DO YOU HAVE ANY RASHES OR OPEN SORES? NO . ALLERGIC/IMMUNO: ARE YOU ALLERGIC TO SHELLFISH OR IV DYE? NO . ANY NEW ALLERGIES? NO . PSYCHIATRIC: DO YOU HAVE THOUGHTS OF HURTING YOURSELF OR SOMEONE ELSE? PT STATES &QUOT;THE THOUGHTS ARE THERE BUT I WOULD NOT ACT UPON IT, I USE GREAT RESTRAINT&QUOT;. . ARE YOU ABUSED, NEGLECTED, OR IN AN UNSAFE ENVIRONMENT? NO . ENDOCRINOLOGY: ARE YOU DIABETIC? NO . OTHER: DO YOU NEED ANY PRESCRIPTIONS? YES TIZANIDINE/HYDROCODONE . IF YES, PLEASE LIST: ____ . ANY NEW PROBLEMS WITH YOUR MEDICATIONS? NO . WHEN DID YOU LAST EAT? ____ . WHEN DID YOU LAST DRINK? ____ . WHAT DID YOU LAST DRINK? ____ . NAME OF PERSON DRIVING YOU HOME? ____ . DO YOU HAVE ANY OTHER QUESTIONS OR CONCERNS &QUOT; MOVANTIK NOT WORKING&QUOT; . REVIEWED BY: PROVIDER: HIRAL JETER MD . VITAL SIGNS WT 129 LBS, HT 66 IN, BMI 20.82 INDEX, BP 123/91 MM HG, HR 101 /MIN, RR 18 /MIN, TEMP 100.2 F, OXYGEN SAT % 98%, NA INITIALS SC 14:41, REVIEWED BY: MLF. EXAMINATION GENERAL: PATIENT IS ALERT O X 3 AND COOPERATIVE. TENDERNESS IN THE LEFT SHOULDER AREA. HYPERPATHIA IN THE BACK SHOULDER REGION. ALLODYNIA OVER SURGICAL SCAR OF RIGHT SHOULDER. LEFT ARM WEAKER THEN THE RIGHT AT EXTENSION AND FLEXION. LEFT HAND CARTOGRAPHIC ENGINEER WEAKER THEN THE RIGHT. ABDUCTION OF LEFT ARM IS 30 DEGREES WHILE RIGHT ARM IS 90 DEGREES. MRI OF THE LEFT SHOULDER SHOWS TENDINITIS AND A ANTERIOR LABRAL TEAR. ASSESSMENTS SHOULDER PAIN, LEFT - M25.512 (PRIMARY) TREATMENT SHOULDER PAIN, LEFT REFILL NORCO TABLET, 7.5-325 MG, 1 TABLET, ORALLY (CODE D FOR CHRONIC PAIN ), EVERY 6 HRS PRN PAIN MDD=4, 60 DAYS, 210, REFILLS 0 REFILL LIDOCAINE CREAM, 4 %, 1 STRIP, EXTERNALLY 2 INCHES, Q 6 HRS TO LEFT SHOULDER PRN PAIN, 30 DAYS, 3 TUBES, REFILLS 2 NOTES: WE DISCUSSED SEVERAL ISSUES WITH MRS. PRIEST'S PAIN MANAGEMENT CASE. AT THIS TIME THE PATIENT WILL CONTINUE WITH THE SAME MEDICATION REGIME. HOWEVER, I WOULD LIKE THE PATIENT TO STOP MOVANTIX SHE STATES IT DOES NOT AID IN RELIEF FROM THE CONSTIPATION. PATIENT WILL START TO USE MIRALAX WHICH SHE HAS USED IN THE PAST AND RECEIVED RELIEF. PATIENT DENIES ABUSE OF ANY MEDICATION, DENIES USE OF ILLEGAL SUBSTANCES, AND STATES THAT SHE IS ONLY USING THE MEDICATION FOR PAIN MANAGEMENT. URINE TOXICOLOGY REPORT DONE ON 06/27/16 SHOWS CONSISTENT RESULTS WITH THE PATIENT'S MEDICATION LIST. PATIENT BROUGHT THE MEDICATIONS TO THE VISIT IN THEIR ORIGINAL BOTTLES. PATIENT IS AWARE THAT SHE WILL NEED HER PSYCHIATRIST TO CONTACT MYSELF TO DISCUSS MEDICATION. I WOULD LIKE THE PATIENT TO BEGIN PHYSICAL THERAPY SHE STATED IT INCREASED HER MOBILITY AND FUNCTIONALITY AND EVERYDAY ACTIVITIES SUCH PUTTING HER SHOES ON AND GETTING DRESSED BECAME EASIER. I WOULD ALSO LIKE TO MOVE FORWARD WITH A SUPRA SCAPULAR NERVE BLOCK DUE TO WHERE THE PATIENT'S PAIN IS LOCATED. WE DISCUSSED THE RISKS, BENEFITS AND ALTNERATIVES OF THE INJECTION AND THE PATIENT WOULD LIKE TO PROCEED AT THIS TIME. INSTRUCTIONS WERE GIVEN, QUESTIONS WERE ANSWERED, PATIENT REPORTS UNDERSTANDING AND AGREES WITH THE PLAN. I, DIAZ GRULLON, DOCUMENTED THE ABOVE INFORMATION ACTING A SCRIBE FOR DR. JETER. I HAVE REVIEWED THE ABOVE DOCUMENT, WRITTEN BY DIAZ CORRIGAN AND I VERIFY THAT IT IS ACCURATE. OTHERS REFILL ZANAFLEX TABLET, 4 MG, 1 TABLET NEEDED, ORALLY FOR SPASMS AND PAIN, EVERY 8 HRS WORKERS COMP MDD3, 30 DAY(S), 90, REFILLS 1 REFILL MIRALAX PACKET, 1 PACKET MIXED WITH 8 OUNCES OF FLUID, ORALLY, ONCE A DAY, 30 DAY(S), 30, REFILLS 2 PROCEDURES PN WORKMANS' COMP OPINION IN YOUR OPINION, WAS THE INCIDENT THAT THE PATIENT DESCRIBED THE COMPETENT MEDICAL CAUSE OF THIS INJURY/ILLNESS? YES ARE THE PATIENT'S COMPLAINTS CONSISTENT WITH HIS/HER HISTORY OF THE INJURY/ILLNESS? YES IS THE PATIENT'S HISTORY OF THE INJURY/ILLNESS CONSISTENT WITH YOUR OBJECTIVE FINDING? YES WHAT IS THE PERCENTAGE OF TEMPORARY IMPAIRMENT? MARKED = 75% IS THE PATIENT WORKING? NO DOCTOR ON SITE: HIRAL COLLINS MD PROCEDURE CODES FA211 ESTABILISHED PATIENT [facility] FACILITY CHARGE G8427 DOC MEDS VERIFIED W/PT OR RE G6730 PAIN ASSESS POS TOOL F/U PLAN DOC DISPOSITION & COMMUNICATION FOLLOW UP SUPRA SCAPULAR NERVE BLOCK ELECTRONICALLY SIGNED BY HIRAL JETER MD ON 12/23/2016 AT 04:40 PM EDT DISCLAIMER : THIS IS A VISIT SUMMARY EXTRACTED FROM THE [employer] CHART. IT IS NOT A COPY OF THE [employer] PROGRESS NOTE. LYLAD
== END ==
LOC: M PAIN 14:00
PROVIDERS: ATTEND Anesthesiology
DX: G89.29 Other chronic pain (principal); M25.512 Pain in left shoulder; M79.7 Fibromyalgia; I10 Essential (primary) hypertension; E78.00 Pure hypercholesterolemia, unspecified; G43.909 Migraine, unspecified, not intractable, without status migrainosus; R56.9 Unspecified convulsions; G47.419 Narcolepsy without cataplexy; K21.9 Gastro-esophageal reflux disease without esophagitis; F43.10 Post-traumatic stress disorder, unspecified; E55.9 Vitamin D deficiency, unspecified; D64.9 Anemia, unspecified; E03.9 Hypothyroidism, unspecified; F41.9 Anxiety disorder, unspecified; F31.9 Bipolar disorder, unspecified; M19.90 Unspecified osteoarthritis, unspecified site; Z88.0 Allergy status to penicillin; Z88.8 Allergy status to other drugs, medicaments and biological substances; Z88.5 Allergy status to narcotic agent; Z88.6 Allergy status to analgesic agent; L23.3 Allergic contact dermatitis due to drugs in contact with skin; Z91.018 Allergy to other foods; Z79.01 Long term (current) use of anticoagulants; Z79.891 Long term (current) use of opiate analgesic; Z79.899 Other long term (current) drug therapy

== ENCOUNTER → 2017-01-29 | Outpatient (CLI) | payer OTHER, BC, MEDICARE ==
--- NOTE | 2017-02-04 00:06 | ECWPNPC ---
PATIENT NAME: JASPER PRIEST : 1970 GENDER: FEMALE VISIT DATE: 01/29/2017 DISCHARGE DATE: 01/29/17 1618 VISIT LOCKED DATE TIME: PHYSICIAN: HIRAL JETER RESOURCE: HIRAL JETER REASON FOR APPOINTMENT 1. LEFT SHOULDER PAIN W/C HISTORY OF PRESENT ILLNESS HISTORY OF PRESENT ILLNESS: PAIN THE PATIENT DESCRIBES THE PAIN... 46 YEAR OLD MALE PATIENT WITH HISTORY OF CHRONIC LEFT SHOULDER PAIN. PATIENT DESCRIBES THE PAIN ACHING, BURNING, SHARP, STABBING, TENDER, THROBBING, SORE, SHOOTING, AND HAVING IT ALL THE TIME WITH A PAIN SCORE OF 6/10. MRS. PRIEST WAS HURT IN A WORK RELATED INJURY IN 1999 WHEN SHE WAS USING A CONCETTA LIFT AT [facility] AND WAS PULLING THE CONCETTA LIFT AND SOMEONE HAD HELD ONTO THE LIFT AND SHE HURT HER SHOULDER IN THE PROCESS OF PULLING IT. PATIENT HAS RECEIVED ONE SHOULDER SURGERY IN EFFORT TO REPAIR TEARS BUT THE PATIENT STATES THAT IT IS STILL DIFFICULT TO MOVE HER SHOULDER AND SHE IS IN CONSTANT PAIN. PATIENT IS CURRENTLY USING TIZANIDINE, HYDROCODONE, LIDOCAINE, AND MIRALAX. PATIENT STATES THAT THE MEDICATION KEEPS HER MOBILE AND FUNCTIONAL. PATIENT DENIES UNEXPLAINABLE WEIGHT LOSS, FEVER, CHILLS, NEW CHANGES ON HER URINARY OR BOWEL CONTROL. FALL RISK SCREENING: SCREENING :NO FALLS IN THE PAST YEAR CURRENT MEDICATIONS TAKING ELMIRON 100 MG CAPSULE 1 CAPSULE ON AN EMPTY STOMACH ORALLY THREE TIMES A DAY TAKING XANAX 1 MG TABLET ORALLY FOUR TIMES DAILY TAKING KEPPRA 750 MG TABLET ORALLY EVERY 12 HRS TAKING FLONASE 50 MCG/ACT SUSPENSION 1 PUFF IN EACH NOSTRIL NASALLY ONCE DAILY NEEDED, NOTES: 02-19-16 TAKING PHENERGAN 25 MG SUPPOSITORY 1 SUPPOSITORY OR 25 MG TABAS NEEDED RECTAL EVERY 6 HRS TAKING PYRIDIUM 100 MG TABLET DIRECTED ORALLY TAKING BENADRYL 25 MG CAPSULE 1 CAPSULE ORALLY EVERY 6 HRS NEEDED TAKING VITAMIN D3 2000 UNIT CAPSULE 1 TABLET ORALLY ONCE A DAY TAKING DULCOLAX 5 MG TABLET DELAYED RELEASE 2 TABLETS NEEDED FOR CONSTIPATION ORALLY ONCE A DAY TAKING HYDROXYZINE HCL 25 MG TABLET 1 TABLET NEEDED ORALLY EVERY 8 HRS TAKING SYNTHROID 75 MCG TABLET 1 TABLET ORALLY ONCE A DAY TAKING TROSPIUM CHLORIDE 20 MG TABLET 1 TABLET AT BEDTIME ON AN EMPTY STOMACH ORALLY BID TAKING PRILOSEC 20MG 20MG TABLET ORAL BID TAKING FENOFIBRATE 160 MG TABLET 1 TABLET WITH A MEAL ORALLY ONCE A DAY TAKING ZINC 50 MG TABLET 1 TABLET ORALLY ONCE A DAY TAKING MAGNESIUM 500 MG TABLET 2500MG 1 TABLET WITH A MEAL ORALLY TWICE DAILY TAKING POTASSIUM GLUCONATE 595 MG TABLET ORALLY ONCE A DAY TAKING OMEGA-3 KRILL OIL 300 MG CAPSULE ORALLY DAILY TAKING CALCIUM 1000 MG 1 TAB ORAL DAILY TAKING PROBIOTIC CAPSULE ORALLY DAILY TAKING GARCINIA CAMBOGIA-CHROMIUM 500-200 MG-MCG TABLET ORALLY DAILY TAKING GINKGO BILOBA 400 MG CAPSULE ORALLY DAILY TAKING ECHINACEA COMB/FERNÁNDEZ SEAL CAPSULE ORALLY DAILY TAKING SALINE NASAL SPRAY 0.65 % SOLUTION NASALLY , NOTES: 1 WEEK TAKING DEXTROAMPHETAMINE SULFATE ER 10 MG CAPSULE EXTENDED RELEASE 24 HOUR 2 CAPSULES IN AM, 1 AT NOON ORALLY TAKING FOLIC ACID 1 MG TABLET ORALLY TAKING ZANTAC 150 MG TABLET 1 TABLET AT BEDTIME ORALLY BID TAKING MECLIZINE HCL 25 MG TABLET CHEWABLE 1 TABLET TID ORALLY 3 A DAY TAKING DRONABINOL 5 MG CAPSULE 1 CAPSULE BEFORE LUNCH AND SUPPER ORALLY TWICE A DAY TAKING MIRALAX PACKET 1 PACKET MIXED WITH 8 OUNCES OF FLUID ORALLY ONCE A DAY TAKING NORCO 7.5-325 MG TABLET 1 TABLET ORALLY (CODE D FOR CHRONIC PAIN ) EVERY 6 HRS PRN PAIN MDD=4 TAKING LIDOCAINE 4 % CREAM 1 STRIP EXTERNALLY 2 INCHES Q 6 HRS TO LEFT SHOULDER PRN PAIN TAKING ZANAFLEX 4 MG TABLET 1 TABLET NEEDED ORALLY FOR SPASMS AND PAIN EVERY 8 HRS WORKERS COMP MDD3 TAKING ZONISAMIDE 25 MG CAPSULE 2 CAPSULES ORALLY TWICE A DAY DIRECTED TAKING MIRTAZAPINE 15 MG TABLET 1 TABLET AT BEDTIME ORALLY ONCE A DAY NOT-TAKING MOVANTIK 25 MG TABLET 1 TABLET IN THE MORNING ORALLY ONCE A DAY PRN FOR CONSTIPATION NOT-TAKING PENNSAID 2 % SOLUTION 2 APPLICATIONS TO AFFECTED AREA TRANSDERMAL TWICE A DAY FOR PAIN, NOTES: W/C WILL NOT APPROVE NOT-TAKING LATUDA 20 MG TABLET 2 TABLETS WITH FOOD ORALLY ONCE A DAY NOT-TAKING SUMATRIPTAN SUCCINATE 100 MG TABLET DIRECTED ORALLY NOT-TAKING MOTRIN IB 200 MG TABLET 1 TABLET ORALLY EVERY 6 HRS NOT-TAKING FERROUS SULFATE 325 (65 FE) MG TABLET 1 TABLET ORALLY ONCE A DAY NOT-TAKING KAPIDEX 60 MG CAPSULE DELAYED RELEASE DIRECTED ORALLY NOT-TAKING AMITIZA 24 MCG CAPSULE 1 CAPSULE WITH FOOD ORALLY TWICE A DAY NOT-TAKING LIDODERM 5 % PATCH 1 PATCH TO INTACT SKIN REMOVE AFTER 12 HOURS EXTERNALLY ONCE A DAY NOT-TAKING TRILIPIX 135 MG CAPSULE DELAYED RELEASE 1 CAPSULE ORALLY ONCE A DAY NOT-TAKING VESICARE 10 MG TABLET 1 TABLET ORALLY ONCE A DAY NOT-TAKING MULTIVITAMINS CAPSULE DIRECTED ORALLY NOT-TAKING VITAMIN E 400 UNIT TABLET CHEWABLE DIRECTED ORALLY NOT-TAKING KEPPRA 750 MG TABLET 2 TABLETS ORALLY EVERY 12 HRS NOT-TAKING OMEPRAZOLE 20 MG CAPSULE DELAYED RELEASE 2 CAPSULES ORALLY ONCE A DAY NOT-TAKING CINNAMON PLUS CHROMIUM 100-500 MCG-MG CAPSULE ORALLY NOT-TAKING TROSPIUM CHLORIDE 20 MG TABLET 1 TABLET AT BEDTIME ON AN EMPTY STOMACH ORALLY ONCE A DAY NOT-TAKING METFORMIN HCL 1000 MG TABLET 1 TABLET WITH MEALS ORALLY TWICE A DAY NOT-TAKING FLEXERIL 10 MG TABLET 1 TABLET ORALLY THREE TIMES A DAY NOT-TAKING OXYCONTIN 20 MG TABLET EXTENDED RELEASE 12 HOUR 1 TABLET ORALLY EVERY 12 HRS NOT-TAKING PERCOCET 5-325 MG TABLET 1 TABLET NEEDED ORALLY EVERY 6 HRS NOT-TAKING TYLENOL WITH CODEINE #3 300-30 MG TABLET 1 TABLET ORALLY ONE TAB AT ONSET OF MIGRAINE; MAY REPEAT X1 IN 4 HRS MDD=2 NOT-TAKING NORTRIPTYLINE HCL 50 MG CAPSULE 1 CAPSULE AT BEDTIME ORALLY ONCE A DAY NOT-TAKING ALPRAZOLAM 1 MG TABLET 1 TABLET ORALLY TWICE A DAY MEDICATION LIST REVIEWED AND RECONCILED WITH THE PATIENT PAST MEDICAL HISTORY FIBROMYALGIA HYPERTENTION HIGH CHOLESTEROL CHRONIC MIGRAINES DYSPAREUNIA HEMANGIOMA SEIZURES/NARCOLEPSY IC KIDNEY STONES IBS GERD CHRONIC PAIN PTSD VITAMIN D DEFICIENCY IRON DEFICIENCY ANEMIA HYPOTHYROIDISM ANXIETY DEPRESSION OSTEOARTHRITIS DDD-C6-7 CERVICAL NEURALGIA DIPLOPIA EXTREMITY PARESTHESIAS GALLBLADDER STONES OVARIAN CYST FIBRIODS HYPOGLYCEMIA BIPOLAR CARPAL TUNNEL -BILATERAL PATELLO FEMORAL SYNDROME-ZEENAT KNEES RENAL CANCER RIGHT ALLERGIES PENICILLIN (FOR ALLERGIES USE ONLY): RASH,ELEVATED TEMP: ALLERGY CYPROHEPTADINE HCL: RASH,HEART PALPITATIONS: ALLERGY DARVOCET-N 50: EXACERBATES HEADACHES: ALLERGY TOPAMAX: PALPITATIONS: ALLERGY REMERON: SEVERE HEADACHES: ALLERGY MOBIC: RECTAL BLEEDING ,ABDOMINAL PAIN: ALLERGY CELEBREX: THROAT EDEMA: ALLERGY NAPROSYN: THROAT EDEMA: ALLERGY EFFEXOR: SEVERE HEADACHES: ALLERGY VERAPAMIL HCL: SOB,LOWER PERIPHAL EDEMA ,ABDOMINAL DISTENTION: ALLERGY LYRICA: ELEVATED TEMP,GUMS RECECDED: ALLERGY DEPAKOTE: HEART PALPITATIONS: ALLERGY FENTANYL: SEVERE ITCHING: ALLERGY NUVIGIL: MIGRAINE HEADACHES,VERTIGO,DIZZINESS: ALLERGY CYMBALTA: HEADACHES: ALLERGY GANDOLINUM MRI DYE: CARDIAC ISSUES: ALLERGY CIPRO: CHEST PAIN,SOB,LBP: ALLERGY NORTRIPYTLINE HCL: HEADACHES: ALLERGY RITALIN: HEART PALPITATIONS: ALLERGY ADHESIVE BANDAGES: SENSITIVITY: ALLERGY CILANTRO: SOB,HEART PALPITATIONS: ALLERGY ASPARTAME: MIGRAINES: ALLERGY SEROQUEL: MULTIPLE SIDE EFFECTS: ALLERGY ABILIFY: CONSTIPATION DEPRESSION: SIDE EFFECTS CELEXA: MIGRAINES: SIDE EFFECTS LAMOTRIGINE: RAGE IRRITABILITY: SIDE EFFECTS ZYPREXA: MIGRAINES: SIDE EFFECTS MOTRIN: CAN NOT HAVE WHILE ON MEDICATION: SIDE EFFECTS SURGICAL HISTORY OVARIES AND FALLOPIAN TUBES AND ADHESION 12/05/15 TUBAL LIGATION 01/06/1993 CYSTOSCOPES X2-3 2006 HYSTERSCOPES X2 08/08/2009 COLONSCOPY ENDOSCOPY LEFT LABRAL TEAR REPAIR WITH A PARTIAL REMOVAL OFCOLLAR BONE 12/23/2004 TOOTH EXTRACTIONS BX RIGHT KIDNEY 03/26/2016 RIGHT PARTIAL NEPHRECTOMY 05/04/16 FAMILY HISTORY NO FAMILY HISTORY DOCUMENTED. SOCIAL HISTORY GENERAL: PAIN CLINIC PFS, CLERGY, PUBLIC HEALTH REFERRALS CLERGY REFERRAL NEEDED?NO WAS THE PROVIDER NOTIFIED OF ANY PERTINENT INFO?NO PFS REFERRAL NEEDED?NO PUBLIC HEALTH REFERRAL NEEDED?NO PATIENT: ____. WITH 2 CHILDREN. HOSPITALIZATION/MAJOR DIAGNOSTIC PROCEDURE HYSTERECTOMY 01/06/93 08/27/91 CHILDBIRTH 01/05/93 CHILDBIRTH REVIEW OF SYSTEMS CONSTITUTIONAL: ANY CHANGE IN YOUR MEDICAL CONDITION? NO . CHILLS NO . FEVER NO . INFECTION: DO YOU HAVE NEW INFECTIONS? NO . DO YOU HAVE HISTORY OF MRSA? NO . MUSCULOSKELETAL: ANY NEW PATTERNS OF PAIN OR NUMBNESS? YES, LIMITED ROM AND DROP THINGS OFTEN . GASTROENTEROLOGY: ANY NEW CHANGE IN BOWEL CONTROL? YES, CONSTIPATION . GENITOURINARY: ANY NEW CHANGE IN BLADDER CONTROL? NO . IS THERE A CHANCE YOU COULD BE ? NO . HEMATOLOGY/LYMPH: DO YOU TAKE ANY BLOOD THINNERS? (FOR EXAMPLE- COUMADIN, PLAVIX, AGGRENOX, PLATEL, PRADAXA, OR XARELTO) NO . WHEN WAS YOUR LAST DOSE? DATE: TIME: . NEUROLOGY: HAVE YOU FALLEN IN THE PAST 6 MONTHS? YES, RIGHT KNEE AND LEFT HIP &QUOT;GIVE OUT&QUOT; AND SHE TRIPS OVER DOG TOO. CHANGE IN VISION . ANY NEW EXTREMITY NUMBNESS OR WEAKNESS? NO . CARDIOLOGY: DO YOU HAVE A PACEMAKER OR DEFIBRILLATOR? NO . RESPIRATORY: HAVE YOU BEEN SICK IN THE PAST WEEK? NO . FEVER NO . FLU LIKE SYMPTOMS? NO . COUGH NO . INTEGUMENTARY: DO YOU HAVE ANY RASHES OR OPEN SORES? NO . ALLERGIC/IMMUNO: ARE YOU ALLERGIC TO SHELLFISH OR IV DYE? YES, IV DYE . ANY NEW ALLERGIES? NO . PSYCHIATRIC: DO YOU HAVE THOUGHTS OF HURTING YOURSELF OR SOMEONE ELSE? NO . ARE YOU ABUSED, NEGLECTED, OR IN AN UNSAFE ENVIRONMENT? NO . ENDOCRINOLOGY: ARE YOU DIABETIC? NO . OTHER: DO YOU NEED ANY PRESCRIPTIONS? YES . IF YES, PLEASE LIST: HYDROCODONE . ANY NEW PROBLEMS WITH YOUR MEDICATIONS? NO . WHEN DID YOU LAST EAT? ____ . WHEN DID YOU LAST DRINK? ____ . WHAT DID YOU LAST DRINK? ____ . NAME OF PERSON DRIVING YOU HOME? ____ . DO YOU HAVE ANY OTHER QUESTIONS OR CONCERNS NO . REVIEWED BY: PROVIDER: HIRAL JETER MD . VITAL SIGNS WT 130.0 LBS, HT 66 IN, BMI 20.98 INDEX, BP 180/92 MM HG, HR 98 /MIN, RR 16 /MIN, TEMP 98.0 F, OXYGEN SAT % 96%, NA INITIALS TL 1601, REVIEWED BY: NASIM BP WAS LOWER/ PT CURRENTLY STRESSED / MD AWARE OF BP. EXAMINATION : PATIENT IS ALERT O X 3 AND COOPERATIVE. TENDERNESS IN THE LEFT SHOULDER AREA. HYPERPATHIA IN THE BACK SHOULDER REGION. ALLODYNIA OVER SURGICAL SCAR OF RIGHT SHOULDER. LEFT ARM WEAKER THEN THE RIGHT AT EXTENSION AND FLEXION. LEFT HAND WET PROCESS MILLER WEAKER THEN THE RIGHT. ABDUCTION OF LEFT ARM IS 30 DEGREES WHILE RIGHT ARM IS 90 DEGREES. MRI OF THE LEFT SHOULDER SHOWS TENDINITIS AND A ANTERIOR LABRAL TEAR. ASSESSMENTS SHOULDER PAIN, LEFT - M25.512 (PRIMARY) MYALGIA - M79.1 TREATMENT SHOULDER PAIN, LEFT REFILL NORCO TABLET, 7.5-325 MG, 1 TABLET, ORALLY (CODE D FOR CHRONIC PAIN ), EVERY 6 HRS PRN PAIN MDD=4, 60 DAYS, 210, REFILLS 0 REFILL LIDOCAINE CREAM, 4 %, 1 STRIP, EXTERNALLY 2 INCHES, Q 6 HRS TO LEFT SHOULDER PRN PAIN, 30 DAYS, 3 TUBES, REFILLS 2 NOTES: WE DISCUSSED SEVERAL ISSUES WITH MRS. PRIEST'S PAIN MANAGEMENT CASE. AT THIS TIME THE PATIENT WILL CONTINUE WITH THE SAME MEDICATION REGIME. PATIENT REPORTS THE MIRALAX WORKING BETTER THEN THE MOVANTIK FOR HER OPIATE INDUCED CONSTIPATION. PATIENT DENIES ABUSE OF ANY MEDICATION, DENIES USE OF ILLEGAL SUBSTANCES, AND STATES THAT SHE IS ONLY USING THE MEDICATION FOR PAIN MANAGEMENT. URINE TOXICOLOGY REPORT DONE ON 06/27/16 SHOWS CONSISTENT RESULTS WITH THE PATIENT'S MEDICATION LIST. PATIENT BROUGHT THE MEDICATIONS TO THE VISIT IN THEIR ORIGINAL BOTTLES. PATIENT IS AWARE THAT SHE WILL NEED HER PSYCHIATRIST TO CONTACT MYSELF TO DISCUSS MEDICATION. I WOULD ALSO LIKE TO MOVE FORWARD WITH A SUPRA SCAPULAR NERVE BLOCK DUE TO WHERE THE PATIENT'S PAIN IS LOCATED. WE DISCUSSED THE RISKS, BENEFITS AND ALTNERATIVES OF THE INJECTION AND THE PATIENT WOULD LIKE TO PROCEED AT THIS TIME. INSTRUCTIONS WERE GIVEN, QUESTIONS WERE ANSWERED, PATIENT REPORTS UNDERSTANDING AND AGREES WITH THE PLAN. I, DIAZ GRULLON, DOCUMENTED THE ABOVE INFORMATION ACTING A SCRIBE FOR DR. JETER. I HAVE REVIEWED THE ABOVE DOCUMENT, WRITTEN BY DIAZ CORRIGAN AND I VERIFY THAT IT IS ACCURATE. OTHERS REFILL ZANAFLEX TABLET, 4 MG, 1 TABLET NEEDED, ORALLY FOR SPASMS AND PAIN, EVERY 8 HRS WORKERS COMP MDD3, 30 DAY(S), 90, REFILLS 1 PROCEDURES PN WORKMANS' COMP OPINION IN YOUR OPINION, WAS THE INCIDENT THAT THE PATIENT DESCRIBED THE COMPETENT MEDICAL CAUSE OF THIS INJURY/ILLNESS? YES ARE THE PATIENT'S COMPLAINTS CONSISTENT WITH HIS/HER HISTORY OF THE INJURY/ILLNESS? YES IS THE PATIENT'S HISTORY OF THE INJURY/ILLNESS CONSISTENT WITH YOUR OBJECTIVE FINDING? YES WHAT IS THE PERCENTAGE OF TEMPORARY IMPAIRMENT? MARKED = 75% IS THE PATIENT WORKING? NO DOCTOR ON SITE: HIRAL COLLINS MD PROCEDURE CODES FA211 ESTABILISHED PATIENT [facility] FACILITY CHARGE G8427 DOC MEDS VERIFIED W/PT OR RE G8730 PAIN ASSESS POS TOOL F/U PLAN DOC DISPOSITION & COMMUNICATION FOLLOW UP SUPRA SCAPULAR NERVE BLOCK AFTER APPROVAL ELECTRONICALLY SIGNED BY HIRAL JETER MD ON 02/03/2017 AT 05:32 PM EDT DISCLAIMER : THIS IS A VISIT SUMMARY EXTRACTED FROM THE [employer] CHART. IT IS NOT A COPY OF THE [employer] PROGRESS NOTE. HECTOR
== END ==
LOC: M PAIN 15:00
PROVIDERS: ATTEND Anesthesiology
DX: M25.512 Pain in left shoulder (principal); M79.1 Myalgia; G89.29 Other chronic pain; Z79.899 Other long term (current) drug therapy; Z79.891 Long term (current) use of opiate analgesic; Z88.0 Allergy status to penicillin; Z88.8 Allergy status to other drugs, medicaments and biological substances; Z88.6 Allergy status to analgesic agent; Z88.5 Allergy status to narcotic agent; Z91.048 Other nonmedicinal substance allergy status; Z91.018 Allergy to other foods

== ENCOUNTER → 2017-02-19 | Outpatient (CLI) | payer MEDICARE, BC | LOC: M PLARAD 09:51 | PROVIDERS: ATTEND Internal Medicine Medical Oncology | DX: C64.9 Malignant neoplasm of unspecified kidney, except renal pelvis (principal) | CPT/HCPCS: 78815; A9552 ==

== ENCOUNTER → 2017-03-29 | Outpatient (CLI) | payer OTHER, MEDICARE, BC ==
[~2017-03-29] MED LIST changes: +BENA25CA4 PO; +CALC1TAB40 PO; +CALC500T49 PO; +CHRO200C PO; +CINN1CAP PO; -CINN1CAP2 PO; +CINN500C9 PO; +DEXE1TAB2 PO; +DRON5CAP6 PO; +FOLI1TAB4 PO; +FOLI800C PO; -HYDR25T PO; +LIDO1OIN2 TOP; -MAGN250T2 PO; +MAGN250T7 PO; +MAGNESIUM TAURATE PO; +MECL-86 PO; +MIRA3350 PO; +PHEN-500 PO; +PHEN1SUP6 PR; -PHEN1TAB80 PO; +PROBCAP4 PO; +PYRI1TAB5 PO; +VITA100067 PO; +[UNRECOGNIZED DRUG - OTHER]; +[UNRECOGNIZED DRUG - OTHER] PO; +phenergan PO
--- NOTE | 2017-04-17 01:10 | ECWPNPC ---
PATIENT NAME: JASPER PRIEST : 1970 GENDER: FEMALE VISIT DATE: 03/29/2017 DISCHARGE DATE: 03/29/17 1605 VISIT LOCKED DATE TIME: PHYSICIAN: HIRAL JETER RESOURCE: HIRAL JETER REASON FOR APPOINTMENT 1. SHOULDER W/C HISTORY OF PRESENT ILLNESS HISTORY OF PRESENT ILLNESS: PAIN THE PATIENT DESCRIBES THE PAIN... 46 YEAR OLD MALE PATIENT WITH HISTORY OF CHRONIC LEFT SHOULDER PAIN. PATIENT DESCRIBES THE PAIN ACHING, BURNING, SHARP, STABBING, TENDER, THROBBING, SORE, SHOOTING, AND HAVING IT ALL THE TIME WITH A PAIN SCORE OF 6/10. MRS. PRIEST WAS HURT IN A WORK RELATED INJURY IN 1999 WHEN SHE WAS USING A CONCETTA LIFT AT [facility] AND WAS PULLING THE CONCETTA LIFT AND SOMEONE HAD HELD ONTO THE LIFT AND SHE HURT HER SHOULDER IN THE PROCESS OF PULLING IT. PATIENT HAS RECEIVED ONE SHOULDER SURGERY IN EFFORT TO REPAIR TEARS BUT THE PATIENT STATES THAT IT IS STILL DIFFICULT TO MOVE HER SHOULDER AND SHE IS IN CONSTANT PAIN. PATIENT IS CURRENTLY USING TIZANIDINE, HYDROCODONE, LIDOCAINE, AND MIRALAX. PATIENT STATES THAT THE MEDICATION KEEPS HER MOBILE AND FUNCTIONAL. MRS. PRIEST EXPRESSED CONCERNS ABOUT THE AMOUNT OF TABLETS THE PHARMACY GAVE HER FOR HER HYDROCODONE. PATIENT DENIES UNEXPLAINABLE WEIGHT LOSS, FEVER, CHILLS, NEW CHANGES ON HER URINARY OR BOWEL CONTROL. FALL RISK SCREENING: SCREENING :NO FALLS IN THE PAST YEAR CURRENT MEDICATIONS TAKING ZANAFLEX 4 MG TABLET 1 TABLET NEEDED ORALLY FOR SPASMS AND PAIN EVERY 8 HRS WORKERS COMP MDD3 TAKING LIDOCAINE 4 % CREAM 1 STRIP EXTERNALLY 2 INCHES Q 6 HRS TO LEFT SHOULDER PRN PAIN TAKING ELMIRON 100 MG CAPSULE 1 CAPSULE ON AN EMPTY STOMACH ORALLY THREE TIMES A DAY TAKING XANAX 1 MG TABLET ORALLY FOUR TIMES DAILY TAKING KEPPRA 750 MG TABLET ORALLY EVERY 12 HRS TAKING FLONASE 50 MCG/ACT SUSPENSION 1 PUFF IN EACH NOSTRIL NASALLY ONCE DAILY NEEDED, NOTES: 02-19-16 TAKING PHENERGAN 25 MG SUPPOSITORY 1 SUPPOSITORY OR 25 MG TABAS NEEDED RECTAL EVERY 6 HRS TAKING PYRIDIUM 100 MG TABLET DIRECTED ORALLY TAKING BENADRYL 25 MG CAPSULE 1 CAPSULE ORALLY EVERY 6 HRS NEEDED TAKING VITAMIN D3 2000 UNIT CAPSULE 1 TABLET ORALLY ONCE A DAY TAKING DULCOLAX 5 MG TABLET DELAYED RELEASE 2 TABLETS NEEDED FOR CONSTIPATION ORALLY ONCE A DAY TAKING HYDROXYZINE HCL 25 MG TABLET 1 TABLET NEEDED ORALLY EVERY 8 HRS TAKING SYNTHROID 75 MCG TABLET 1 TABLET ORALLY ONCE A DAY TAKING TROSPIUM CHLORIDE 20 MG TABLET 1 TABLET AT BEDTIME ON AN EMPTY STOMACH ORALLY BID TAKING PRILOSEC 20MG 20MG TABLET ORAL BID TAKING FENOFIBRATE 160 MG TABLET 1 TABLET WITH A MEAL ORALLY ONCE A DAY TAKING ZINC 50 MG TABLET 1 TABLET ORALLY ONCE A DAY TAKING MAGNESIUM 500 MG TABLET 2500MG 1 TABLET WITH A MEAL ORALLY TWICE DAILY TAKING POTASSIUM GLUCONATE 595 MG TABLET ORALLY ONCE A DAY TAKING OMEGA-3 KRILL OIL 300 MG CAPSULE ORALLY DAILY TAKING CALCIUM 1000 MG 1 TAB ORAL DAILY TAKING PROBIOTIC CAPSULE ORALLY DAILY TAKING GARCINIA CAMBOGIA-CHROMIUM 500-200 MG-MCG TABLET ORALLY DAILY TAKING GINKGO BILOBA 400 MG CAPSULE ORALLY DAILY TAKING ECHINACEA COMB/FERNÁNDEZ SEAL CAPSULE ORALLY DAILY TAKING SALINE NASAL SPRAY 0.65 % SOLUTION NASALLY , NOTES: 1 WEEK TAKING DEXTROAMPHETAMINE SULFATE ER 10 MG CAPSULE EXTENDED RELEASE 24 HOUR 2 CAPSULES IN AM, 1 AT NOON ORALLY TAKING FOLIC ACID 1 MG TABLET ORALLY TAKING ZANTAC 150 MG TABLET 1 TABLET AT BEDTIME ORALLY BID TAKING MECLIZINE HCL 25 MG TABLET CHEWABLE 1 TABLET TID ORALLY 3 A DAY TAKING DRONABINOL 5 MG CAPSULE 1 CAPSULE BEFORE LUNCH AND SUPPER ORALLY TWICE A DAY TAKING MIRALAX PACKET 1 PACKET MIXED WITH 8 OUNCES OF FLUID ORALLY ONCE A DAY TAKING MIRTAZAPINE 15 MG TABLET 1 TABLET AT BEDTIME ORALLY ONCE A DAY TAKING NORCO 7.5-325 MG TABLET 1 TABLET ORALLY (CODE D FOR CHRONIC PAIN ) EVERY 6 HRS PRN PAIN MDD=4 NOT-TAKING ZONISAMIDE 25 MG CAPSULE 2 CAPSULES ORALLY TWICE A DAY DIRECTED NOT-TAKING MOVANTIK 25 MG TABLET 1 TABLET IN THE MORNING ORALLY ONCE A DAY PRN FOR CONSTIPATION NOT-TAKING PENNSAID 2 % SOLUTION 2 APPLICATIONS TO AFFECTED AREA TRANSDERMAL TWICE A DAY FOR PAIN, NOTES: W/C WILL NOT APPROVE NOT-TAKING LATUDA 20 MG TABLET 2 TABLETS WITH FOOD ORALLY ONCE A DAY NOT-TAKING SUMATRIPTAN SUCCINATE 100 MG TABLET DIRECTED ORALLY NOT-TAKING MOTRIN IB 200 MG TABLET 1 TABLET ORALLY EVERY 6 HRS NOT-TAKING FERROUS SULFATE 325 (65 FE) MG TABLET 1 TABLET ORALLY ONCE A DAY NOT-TAKING KAPIDEX 60 MG CAPSULE DELAYED RELEASE DIRECTED ORALLY NOT-TAKING AMITIZA 24 MCG CAPSULE 1 CAPSULE WITH FOOD ORALLY TWICE A DAY NOT-TAKING LIDODERM 5 % PATCH 1 PATCH TO INTACT SKIN REMOVE AFTER 12 HOURS EXTERNALLY ONCE A DAY NOT-TAKING TRILIPIX 135 MG CAPSULE DELAYED RELEASE 1 CAPSULE ORALLY ONCE A DAY NOT-TAKING VESICARE 10 MG TABLET 1 TABLET ORALLY ONCE A DAY NOT-TAKING MULTIVITAMINS CAPSULE DIRECTED ORALLY NOT-TAKING VITAMIN E 400 UNIT TABLET CHEWABLE DIRECTED ORALLY NOT-TAKING KEPPRA 750 MG TABLET 2 TABLETS ORALLY EVERY 12 HRS NOT-TAKING OMEPRAZOLE 20 MG CAPSULE DELAYED RELEASE 2 CAPSULES ORALLY ONCE A DAY NOT-TAKING CINNAMON PLUS CHROMIUM 100-500 MCG-MG CAPSULE ORALLY NOT-TAKING TROSPIUM CHLORIDE 20 MG TABLET 1 TABLET AT BEDTIME ON AN EMPTY STOMACH ORALLY ONCE A DAY NOT-TAKING METFORMIN HCL 1000 MG TABLET 1 TABLET WITH MEALS ORALLY TWICE A DAY NOT-TAKING FLEXERIL 10 MG TABLET 1 TABLET ORALLY THREE TIMES A DAY NOT-TAKING OXYCONTIN 20 MG TABLET EXTENDED RELEASE 12 HOUR 1 TABLET ORALLY EVERY 12 HRS NOT-TAKING PERCOCET 5-325 MG TABLET 1 TABLET NEEDED ORALLY EVERY 6 HRS NOT-TAKING TYLENOL WITH CODEINE #3 300-30 MG TABLET 1 TABLET ORALLY ONE TAB AT ONSET OF MIGRAINE; MAY REPEAT X1 IN 4 HRS MDD=2 NOT-TAKING NORTRIPTYLINE HCL 50 MG CAPSULE 1 CAPSULE AT BEDTIME ORALLY ONCE A DAY NOT-TAKING ALPRAZOLAM 1 MG TABLET 1 TABLET ORALLY TWICE A DAY PAST MEDICAL HISTORY FIBROMYALGIA HYPERTENTION HIGH CHOLESTEROL CHRONIC MIGRAINES DYSPAREUNIA HEMANGIOMA SEIZURES/NARCOLEPSY IC KIDNEY STONES IBS GERD CHRONIC PAIN PTSD VITAMIN D DEFICIENCY IRON DEFICIENCY ANEMIA HYPOTHYROIDISM ANXIETY DEPRESSION OSTEOARTHRITIS DDD-C6-7 CERVICAL NEURALGIA DIPLOPIA EXTREMITY PARESTHESIAS GALLBLADDER STONES OVARIAN CYST FIBRIODS HYPOGLYCEMIA BIPOLAR CARPAL TUNNEL -BILATERAL PATELLO FEMORAL SYNDROME-ZEENAT KNEES RENAL CANCER RIGHT ALLERGIES PENICILLIN (FOR ALLERGIES USE ONLY): RASH,ELEVATED TEMP: ALLERGY CYPROHEPTADINE HCL: RASH,HEART PALPITATIONS: ALLERGY DARVOCET-N 50: EXACERBATES HEADACHES: ALLERGY TOPAMAX: PALPITATIONS: ALLERGY REMERON: SEVERE HEADACHES: ALLERGY MOBIC: RECTAL BLEEDING ,ABDOMINAL PAIN: ALLERGY CELEBREX: THROAT EDEMA: ALLERGY NAPROSYN: THROAT EDEMA: ALLERGY EFFEXOR: SEVERE HEADACHES: ALLERGY VERAPAMIL HCL: SOB,LOWER PERIPHAL EDEMA ,ABDOMINAL DISTENTION: ALLERGY LYRICA: ELEVATED TEMP,GUMS RECECDED: ALLERGY DEPAKOTE: HEART PALPITATIONS: ALLERGY FENTANYL: SEVERE ITCHING: ALLERGY NUVIGIL: MIGRAINE HEADACHES,VERTIGO,DIZZINESS: ALLERGY CYMBALTA: HEADACHES: ALLERGY GANDOLINUM MRI DYE: CARDIAC ISSUES: ALLERGY CIPRO: CHEST PAIN,SOB,LBP: ALLERGY NORTRIPYTLINE HCL: HEADACHES: ALLERGY RITALIN: HEART PALPITATIONS: ALLERGY ADHESIVE BANDAGES: SENSITIVITY: ALLERGY CILANTRO: SOB,HEART PALPITATIONS: ALLERGY ASPARTAME: MIGRAINES: ALLERGY SEROQUEL: MULTIPLE SIDE EFFECTS: ALLERGY ABILIFY: CONSTIPATION DEPRESSION: SIDE EFFECTS CELEXA: MIGRAINES: SIDE EFFECTS LAMOTRIGINE: RAGE IRRITABILITY: SIDE EFFECTS ZYPREXA: MIGRAINES: SIDE EFFECTS MOTRIN: CAN NOT HAVE WHILE ON MEDICATION: SIDE EFFECTS ZONISAMIDE: UNABLE TO FUNCTION REVIEW OF SYSTEMS REVIEWED BY: PROVIDER: HIRAL JETER MD . CONSTITUTIONAL: ANY CHANGE IN YOUR MEDICAL CONDITION? NO . CHILLS NO . FEVER NO . INFECTION: DO YOU HAVE NEW INFECTIONS? NO . DO YOU HAVE HISTORY OF MRSA? NO . MUSCULOSKELETAL: ANY NEW PATTERNS OF PAIN OR NUMBNESS? NO . GASTROENTEROLOGY: ANY NEW CHANGE IN BOWEL CONTROL? NO . GENITOURINARY: ANY NEW CHANGE IN BLADDER CONTROL? YES, DIFFICULTY VOIDING / ON PYRIDIUM NOW FOR CYSTITUS . IS THERE A CHANCE YOU COULD BE ? NO . HEMATOLOGY/LYMPH: DO YOU TAKE ANY BLOOD THINNERS? (FOR EXAMPLE- COUMADIN, PLAVIX, AGGRENOX, PLATEL, PRADAXA, OR XARELTO) YES, ELMIRON . WHEN WAS YOUR LAST DOSE? DATE: TIME: . NEUROLOGY: HAVE YOU FALLEN IN THE PAST 6 MONTHS? NO . ANY NEW EXTREMITY NUMBNESS OR WEAKNESS? NO . CARDIOLOGY: DO YOU HAVE A PACEMAKER OR DEFIBRILLATOR? NO . RESPIRATORY: HAVE YOU BEEN SICK IN THE PAST WEEK? NO . FEVER NO . FLU LIKE SYMPTOMS? NO . COUGH NO . INTEGUMENTARY: DO YOU HAVE ANY RASHES OR OPEN SORES? NO . ALLERGIC/IMMUNO: ARE YOU ALLERGIC TO SHELLFISH OR IV DYE? YES, IV DYE . ANY NEW ALLERGIES? YES, ZONISAMIDE . PSYCHIATRIC: DO YOU HAVE THOUGHTS OF HURTING YOURSELF OR SOMEONE ELSE? NO . ARE YOU ABUSED, NEGLECTED, OR IN AN UNSAFE ENVIRONMENT? NO . ENDOCRINOLOGY: ARE YOU DIABETIC? NO . OTHER: DO YOU NEED ANY PRESCRIPTIONS? YES . IF YES, PLEASE LIST: MIRALAX . ANY NEW PROBLEMS WITH YOUR MEDICATIONS? YES, ALLERGIC TO ZONISAMIDE . WHEN DID YOU LAST EAT? ____ . WHEN DID YOU LAST DRINK? ____ . WHAT DID YOU LAST DRINK? ____ . NAME OF PERSON DRIVING YOU HOME? ____ . DO YOU HAVE ANY OTHER QUESTIONS OR CONCERNS YES, STILL WAITING FOR APPROVAL FOR INJECTION . VITAL SIGNS WT 130.2 LBS, HT 66 IN, BMI 21.01 INDEX, BP 147/75 MM HG, HR 102 /MIN, RR 16 /MIN, TEMP 97.9 F, OXYGEN SAT % 975, NA INITIALS SC 15:14, REVIEWED BY: NL. EXAMINATION : PATIENT IS ALERT O X 3 AND COOPERATIVE. TENDERNESS IN THE LEFT SHOULDER AREA. HYPERPATHIA IN THE BACK SHOULDER REGION. ALLODYNIA OVER SURGICAL SCAR OF RIGHT SHOULDER. LEFT ARM WEAKER THEN THE RIGHT AT EXTENSION AND FLEXION. LEFT HAND ACCOUNT MAINTENANCE REPRESENTATIVE WEAKER THEN THE RIGHT. ABDUCTION OF LEFT ARM IS 30 DEGREES WHILE RIGHT ARM IS 90 DEGREES. MRI OF THE LEFT SHOULDER SHOWS TENDINITIS AND A ANTERIOR LABRAL TEAR. ASSESSMENTS SHOULDER PAIN, LEFT - M25.512 (PRIMARY) MYALGIA - M79.1 TREATMENT SHOULDER PAIN, LEFT REFILL LIDOCAINE OINTMENT, 5 %, 1 STRIP, EXTERNALLY, Q 6 HRS TO LEFT SHOULDER PRN PAIN, 30 DAYS, 3 TUBES, REFILLS 2 NOTES: WE DISCUSSED SEVERAL ISSUES WITH MRS. PRIEST'S PAIN MANAGEMENT CASE. I WAS WITH THE PATIENT FOR OVER 25 MINUTES IN COORDINATING OF CARE DISCUSSING MEDICATIONS WITH THE PATIENT AND CALLING OTHER HEALTH CARE PROVIDERS. AT THIS TIME THE PATIENT WILL CONTINUE TO USE THE SAME MEDICATION AT BEFORE. PATIENT HAS EXPRESSED CONCERN ABOUT RECEIVING A LESS AMOUNT OF HER HYDROCODONE THEN WHAT WAS PRESCRIBE. WE DID AN OFFICIAL PILL COUNTING WELL SPOKE WITH THE PATIENT'S PHARMACY. PATIENT WILL USE THE TABLETS UNTIL HER NEXT APPOINTMENT. PATIENT WILL CONTINUE USING LIDOCAINE OINTMENT FOR THE SOMATIC PAIN, ZANAFLEX FOR THE MUSCLE SPASMS, AND MIRALAX FOR THE CHRONIC CONSTIPATION FROM THE OPIOIDS. PATIENT WILL PERFORM A URINE TOXICOLOGY REPORT TODAY. I WOULD ALSO LIKE TO MOVE FORWARD WITH A SUPRA SCAPULAR NERVE BLOCK DUE TO WHERE THE PATIENT'S PAIN IS LOCATED. WE DISCUSSED THE RISKS, BENEFITS AND ALTERNATIVES OF THE INJECTION AND THE PATIENT WOULD LIKE TO PROCEED AT THIS TIME. INSTRUCTIONS WERE GIVEN, QUESTIONS WERE ANSWERED, PATIENT REPORTS UNDERSTANDING AND AGREES WITH THE PLAN. I, DIAZ GRULLON, DOCUMENTED THE ABOVE INFORMATION ACTING A SCRIBE FOR DR. JETER. I HAVE REVIEWED THE ABOVE DOCUMENT, WRITTEN BY DIAZ CORRIGAN AND I VERIFY THAT IT IS ACCURATE. OTHERS REFILL ZANAFLEX TABLET, 4 MG, 1 TABLET NEEDED, ORALLY FOR SPASMS AND PAIN, EVERY 8 HRS WORKERS COMP MDD3, 30 DAY(S), 90, REFILLS 1 REFILL MIRALAX PACKET, 1 PACKET MIXED WITH 8 OUNCES OF FLUID, ORALLY, ONCE A DAY, 30 DAY(S), 30, REFILLS 2 PROCEDURES PN WORKMANS' COMP OPINION IN YOUR OPINION, WAS THE INCIDENT THAT THE PATIENT DESCRIBED THE COMPETENT MEDICAL CAUSE OF THIS INJURY/ILLNESS? YES ARE THE PATIENT'S COMPLAINTS CONSISTENT WITH HIS/HER HISTORY OF THE INJURY/ILLNESS? YES IS THE PATIENT'S HISTORY OF THE INJURY/ILLNESS CONSISTENT WITH YOUR OBJECTIVE FINDING? YES WHAT IS THE PERCENTAGE OF TEMPORARY IMPAIRMENT? MARKED = 75% IS THE PATIENT WORKING? NO DOCTOR ON SITE: HIRAL COLLINS MD PREVENTIVE MEDICINE REVIEWED PRE PROCEDURE CARE WITH PT / UNDERSTANDING EXPRESSED. PROCEDURE CODES G8427 DOC MEDS VERIFIED W/PT OR RE G8730 PAIN ASSESS POS TOOL F/U PLAN DOC FA211 ESTABILISHED PATIENT [facility] FACILITY CHARGE DISPOSITION & COMMUNICATION FOLLOW UP 3 WEEKS ELECTRONICALLY SIGNED BY HIRAL JETER MD ON 04/16/2017 AT 06:38 PM EDT DISCLAIMER : THIS IS A VISIT SUMMARY EXTRACTED FROM THE [employer] CHART. IT IS NOT A COPY OF THE [employer] PROGRESS NOTE. HECTOR
== END ==
LOC: M PAIN 14:40
PROVIDERS: ATTEND Anesthesiology
DX: G89.29 Other chronic pain (principal); M25.512 Pain in left shoulder; M79.1 Myalgia; I10 Essential (primary) hypertension; E78.00 Pure hypercholesterolemia, unspecified; G43.909 Migraine, unspecified, not intractable, without status migrainosus; R56.9 Unspecified convulsions; K21.9 Gastro-esophageal reflux disease without esophagitis; F43.10 Post-traumatic stress disorder, unspecified; E55.9 Vitamin D deficiency, unspecified; E03.9 Hypothyroidism, unspecified; F41.9 Anxiety disorder, unspecified; F31.9 Bipolar disorder, unspecified; M19.90 Unspecified osteoarthritis, unspecified site; Z88.0 Allergy status to penicillin; Z88.5 Allergy status to narcotic agent; Z88.6 Allergy status to analgesic agent; L23.1 Allergic contact dermatitis due to adhesives; Z88.8 Allergy status to other drugs, medicaments and biological substances; Z79.01 Long term (current) use of anticoagulants; Z91.041 Radiographic dye allergy status; Z79.891 Long term (current) use of opiate analgesic; Z79.899 Other long term (current) drug therapy

== ENCOUNTER → 2017-05-16 | Outpatient (CLI) | payer MEDICARE, BC ==
[~2017-05-16] MED LIST changes: +ISOVUE-370 76% 100ML VIAL (Q9967) As Ordered ONE
--- NOTE | 2017-05-17 13:14 | REP ---
Clinical: History of renal cell carcinoma. Technique: Axial precontrast, contrast enhanced, and delayed images of the abdomen with coronal and sagittal re-formations using 100 ml Isovue 370 intravenous contrast material. Comparison: 11/01/2016. Findings: Lung bases are clear. Visualized heart and pericardium are normal. Cholelithiasis with intrahepatic and extrahepatic biliary ductal dilatation is appreciated and may warrant correlation by physical examination and ultrasound. Liver, spleen, pancreas, bilateral adrenal glands and left kidney are normal. Incidental 12 mm splenic cyst remains stable. Postoperative changes and scarring along the lateral aspect of the right kidney is consistent with prior partial nephrectomy and remains stable. The visualized enteric system is without obstruction or acute inflammatory process. No ascites. No intraperitoneal or retroperitoneal adenopathy. No obvious mass lesion. Vasculature appears normal. Visualized musculoskeletal structures are intact and without focal osseous abnormality. Impression: 1. Cholelithiasis with intrahepatic and extrahepatic biliary ductal dilatation should be correlated clinically. 2. Stable splenic cyst and postsurgical changes involving the right kidney. 3. No new acute abdominal process appreciated. Signed by Yunier Gomez MD 05/17/2017 01:05 P
== END ==
LOC: M RAD 16:40
PROVIDERS: ATTEND Urology
DX: C64.1 Malignant neoplasm of right kidney, except renal pelvis (principal); K80.20 Calculus of gallbladder without cholecystitis without obstruction
CPT/HCPCS: 74170; Q9967

== ENCOUNTER → 2017-06-17 | Outpatient (CLI) | payer OTHER, MEDICARE, BC ==
[~2017-06-17] MED LIST changes: -ISOVUE-370 76% 100ML VIAL (Q9967) As Ordered ONE
--- NOTE | 2017-07-02 01:09 | ECWPNPC ---
PATIENT NAME: JASPER PRIEST : 1970 GENDER: FEMALE VISIT DATE: 06/17/2017 DISCHARGE DATE: 06/17/17 1758 VISIT LOCKED DATE TIME: PHYSICIAN: HIRAL JETER RESOURCE: HIRAL JETER REASON FOR APPOINTMENT 1. LEFT SHOULDER PAIN W/C HISTORY OF PRESENT ILLNESS HISTORY OF PRESENT ILLNESS: PAIN THE PATIENT DESCRIBES THE PAIN... 46 YEAR OLD MALE PATIENT WITH HISTORY OF CHRONIC LEFT SHOULDER PAIN. PATIENT DESCRIBES THE PAIN ACHING, BURNING, SHARP, STABBING, TENDER, THROBBING, SORE, SHOOTING, AND HAVING IT ALL THE TIME WITH A PAIN SCORE OF 6/10. MRS. PRIEST WAS HURT IN A WORK RELATED INJURY IN 1999 WHEN SHE WAS USING A CONCETTA LIFT AT [facility] AND WAS PULLING THE CONCETTA LIFT AND SOMEONE HAD HELD ONTO THE LIFT AND SHE HURT HER SHOULDER IN THE PROCESS OF PULLING IT. PATIENT HAS RECEIVED ONE SHOULDER SURGERY IN EFFORT TO REPAIR TEARS BUT THE PATIENT STATES THAT IT IS STILL DIFFICULT TO MOVE HER SHOULDER AND SHE IS IN CONSTANT PAIN. PATIENT IS CURRENTLY USING TIZANIDINE, HYDROCODONE, LIDOCAINE, AND MIRALAX. PATIENT STATES THAT THE MEDICATION KEEPS HER MOBILE AND FUNCTIONAL. PATIENT STATES THAT THE ONLY TYPE OF PHYSICAL THERAPY THAT AIDS IN PAIN RELIEF IS THE MYOFASCIAL RELEASE. PATIENT DENIES UNEXPLAINABLE WEIGHT LOSS, FEVER, CHILLS, NEW CHANGES ON HER URINARY OR BOWEL CONTROL. FALL RISK SCREENING: SCREENING :NO FALLS IN THE PAST YEAR CURRENT MEDICATIONS TAKING LIDOCAINE 5 % OINTMENT 1 STRIP EXTERNALLY Q 6 HRS TO LEFT SHOULDER PRN PAIN TAKING ZANAFLEX 4 MG TABLET 1 TABLET NEEDED ORALLY FOR SPASMS AND PAIN EVERY 8 HRS WORKERS COMP MDD3 TAKING MIRALAX PACKET 1 PACKET MIXED WITH 8 OUNCES OF FLUID ORALLY ONCE A DAY TAKING ELMIRON 100 MG CAPSULE 1 CAPSULE ON AN EMPTY STOMACH ORALLY THREE TIMES A DAY, NOTES: BLOOD THINNER TAKING KEPPRA 750 MG TABLET ORALLY EVERY 12 HRS TAKING FLONASE 50 MCG/ACT SUSPENSION 1 PUFF IN EACH NOSTRIL NASALLY ONCE DAILY NEEDED, NOTES: 02-19-16 TAKING PHENERGAN 25 MG SUPPOSITORY 1 SUPPOSITORY OR 25 MG TABAS NEEDED RECTAL EVERY 6 HRS TAKING PYRIDIUM 100 MG TABLET DIRECTED ORALLY THREE TIMES DAILY TAKING BENADRYL 25 MG CAPSULE 1 CAPSULE ORALLY EVERY 6 HRS NEEDED TAKING VITAMIN D3 2000 UNIT CAPSULE 1 TABLET ORALLY ONCE A DAY TAKING DULCOLAX 5 MG TABLET DELAYED RELEASE 2 TABLETS NEEDED FOR CONSTIPATION ORALLY ONCE A DAY TAKING HYDROXYZINE HCL 25 MG TABLET 1 TABLET NEEDED ORALLY EVERY 8 HRS TAKING SYNTHROID 75 MCG TABLET 1 TABLET ORALLY ONCE A DAY TAKING TROSPIUM CHLORIDE 20 MG TABLET 1 TABLET AT BEDTIME ON AN EMPTY STOMACH ORALLY BID TAKING PRILOSEC 20MG 20MG TABLET ORAL BID TAKING FENOFIBRATE 160 MG TABLET 1 TABLET WITH A MEAL ORALLY ONCE A DAY TAKING ZINC 50 MG TABLET 1 -2 ORALLY ONCE A DAY NEEDED TAKING MAGNESIUM 500 MG TABLET 2500MG 1 TABLET WITH A MEAL ORALLY TWICE DAILY TAKING POTASSIUM GLUCONATE 595 MG TABLET ORALLY ONCE A DAY TAKING OMEGA-3 KRILL OIL 300 MG CAPSULE ORALLY DAILY TAKING CALCIUM 1000 MG 1 TAB ORAL DAILY TAKING PROBIOTIC CAPSULE ORALLY DAILY TAKING GARCINIA CAMBOGIA-CHROMIUM 500-200 MG-MCG TABLET ORALLY DAILY TAKING GINKGO BILOBA 400 MG CAPSULE ORALLY DAILY TAKING ECHINACEA COMB/FERNÁNDEZ SEAL CAPSULE ORALLY DAILY TAKING SALINE NASAL SPRAY 0.65 % SOLUTION NASALLY , NOTES: 1 WEEK TAKING DEXTROAMPHETAMINE SULFATE ER 10 MG CAPSULE EXTENDED RELEASE 24 HOUR 2 CAPSULES IN AM, 1 AT NOON ORALLY TAKING FOLIC ACID 1 MG TABLET ORALLY TAKING ZANTAC 150 MG TABLET 1 TABLET AT BEDTIME ORALLY BID TAKING MECLIZINE HCL 25 MG TABLET CHEWABLE 1 TABLET TID ORALLY 3 A DAY TAKING DRONABINOL 5 MG CAPSULE 1 CAPSULE BEFORE LUNCH AND SUPPER ORALLY TWICE A DAY NEEDED TAKING NORCO 7.5-325 MG TABLET 1 TABLET ORALLY (CODE D FOR CHRONIC PAIN ) EVERY 6 HRS PRN PAIN MDD=4 TAKING MOVANTIK 25 MG TABLET 1 TABLET IN THE MORNING ORALLY ONCE A DAY PRN FOR CONSTIPATION TAKING PENNSAID 2 % SOLUTION 2 APPLICATIONS TO AFFECTED AREA TRANSDERMAL TWICE A DAY FOR PAIN, NOTES: W/C WILL NOT APPROVE TAKING MOTRIN IB 200 MG TABLET 1 TABLET ORALLY EVERY 6 HRS TAKING MULTIVITAMINS CAPSULE DIRECTED ORALLY TAKING VITAMIN E 400 UNIT TABLET CHEWABLE DIRECTED ORALLY TAKING KEPPRA 750 MG TABLET 2 TABLETS ORALLY EVERY 12 HRS TAKING OMEPRAZOLE 20 MG CAPSULE DELAYED RELEASE 2 CAPSULES ORALLY ONCE A DAY TAKING CINNAMON PLUS CHROMIUM 100-500 MCG-MG CAPSULE ORALLY TAKING TROSPIUM CHLORIDE 20 MG TABLET 1 TABLET AT BEDTIME ON AN EMPTY STOMACH ORALLY ONCE A DAY TAKING XANAX 0.5 MG TABLET 1 - 2 TABS ORALLY TWICE A DAY/ 1&12 IN AM. 2 IN PM, NOTES: TAKES TOTAL OF 3.75MG NOT-TAKING SUMATRIPTAN SUCCINATE 100 MG TABLET DIRECTED ORALLY NOT-TAKING LIDODERM 5 % PATCH 1 PATCH TO INTACT SKIN REMOVE AFTER 12 HOURS EXTERNALLY ONCE A DAY NOT-TAKING XANAX 1 MG TABLET ORALLY FOUR TIMES DAILY NOT-TAKING ALPRAZOLAM 1 MG TABLET 1 TABLET ORALLY TWICE A DAY DISCONTINUED MIRTAZAPINE 15 MG TABLET 1 TABLET AT BEDTIME ORALLY ONCE A DAY DISCONTINUED ZONISAMIDE 25 MG CAPSULE 2 CAPSULES ORALLY TWICE A DAY DIRECTED DISCONTINUED LATUDA 20 MG TABLET 2 TABLETS WITH FOOD ORALLY ONCE A DAY DISCONTINUED FERROUS SULFATE 325 (65 FE) MG TABLET 1 TABLET ORALLY ONCE A DAY DISCONTINUED KAPIDEX 60 MG CAPSULE DELAYED RELEASE DIRECTED ORALLY DISCONTINUED AMITIZA 24 MCG CAPSULE 1 CAPSULE WITH FOOD ORALLY TWICE A DAY DISCONTINUED TRILIPIX 135 MG CAPSULE DELAYED RELEASE 1 CAPSULE ORALLY ONCE A DAY DISCONTINUED VESICARE 10 MG TABLET 1 TABLET ORALLY ONCE A DAY DISCONTINUED METFORMIN HCL 1000 MG TABLET 1 TABLET WITH MEALS ORALLY TWICE A DAY DISCONTINUED FLEXERIL 10 MG TABLET 1 TABLET ORALLY THREE TIMES A DAY DISCONTINUED OXYCONTIN 20 MG TABLET EXTENDED RELEASE 12 HOUR 1 TABLET ORALLY EVERY 12 HRS DISCONTINUED PERCOCET 5-325 MG TABLET 1 TABLET NEEDED ORALLY EVERY 6 HRS DISCONTINUED TYLENOL WITH CODEINE #3 300-30 MG TABLET 1 TABLET ORALLY ONE TAB AT ONSET OF MIGRAINE; MAY REPEAT X1 IN 4 HRS MDD=2 DISCONTINUED NORTRIPTYLINE HCL 50 MG CAPSULE 1 CAPSULE AT BEDTIME ORALLY ONCE A DAY MEDICATION LIST REVIEWED AND RECONCILED WITH THE PATIENT PAST MEDICAL HISTORY FIBROMYALGIA HYPERTENTION HIGH CHOLESTEROL CHRONIC MIGRAINES DYSPAREUNIA HEMANGIOMA SEIZURES/NARCOLEPSY IC KIDNEY STONES IBS GERD CHRONIC PAIN PTSD VITAMIN D DEFICIENCY IRON DEFICIENCY ANEMIA HYPOTHYROIDISM ANXIETY DEPRESSION OSTEOARTHRITIS DDD-C6-7 CERVICAL NEURALGIA DIPLOPIA EXTREMITY PARESTHESIAS GALLBLADDER STONES OVARIAN CYST FIBRIODS HYPOGLYCEMIA BIPOLAR CARPAL TUNNEL -BILATERAL PATELLO FEMORAL SYNDROME-ZEENAT KNEES RENAL CANCER RIGHT ALLERGIES PENICILLIN (FOR ALLERGIES USE ONLY): RASH,ELEVATED TEMP: ALLERGY CYPROHEPTADINE HCL: RASH,HEART PALPITATIONS: ALLERGY DARVOCET-N 50: EXACERBATES HEADACHES: ALLERGY TOPAMAX: PALPITATIONS: ALLERGY REMERON: SEVERE HEADACHES: ALLERGY MOBIC: RECTAL BLEEDING ,ABDOMINAL PAIN: ALLERGY CELEBREX: THROAT EDEMA: ALLERGY NAPROSYN: THROAT EDEMA: ALLERGY EFFEXOR: SEVERE HEADACHES: ALLERGY VERAPAMIL HCL: SOB,LOWER PERIPHAL EDEMA ,ABDOMINAL DISTENTION: ALLERGY LYRICA: ELEVATED TEMP,GUMS RECECDED: ALLERGY DEPAKOTE: HEART PALPITATIONS: ALLERGY FENTANYL: SEVERE ITCHING: ALLERGY NUVIGIL: MIGRAINE HEADACHES,VERTIGO,DIZZINESS: ALLERGY CYMBALTA: HEADACHES: ALLERGY GANDOLINUM MRI DYE: CARDIAC ISSUES: ALLERGY CIPRO: CHEST PAIN,SOB,LBP: ALLERGY NORTRIPYTLINE HCL: HEADACHES: ALLERGY RITALIN: HEART PALPITATIONS: ALLERGY ADHESIVE BANDAGES: SENSITIVITY: ALLERGY CILANTRO: SOB,HEART PALPITATIONS: ALLERGY NKDA: MIGRAINES: ALLERGY SEROQUEL: MULTIPLE SIDE EFFECTS: ALLERGY ABILIFY: CONSTIPATION DEPRESSION: SIDE EFFECTS CELEXA: MIGRAINES: SIDE EFFECTS LAMOTRIGINE: RAGE IRRITABILITY: SIDE EFFECTS ZYPREXA: MIGRAINES: SIDE EFFECTS MOTRIN: CAN NOT HAVE WHILE ON MEDICATION: SIDE EFFECTS ZONISAMIDE: UNABLE TO FUNCTION ZOFRAN: NAUSEA/VOMITING: SIDE EFFECTS MIRTAZAPINE: HEADACHE MOVANTIK: NAUSEA/VOMITING: SIDE EFFECTS DOBUTAMINE HCL: HIVES: ALLERGY LATUDA: MAKES HER WORSE IRON: UPSET STOMACH NORTRIPTLLINE: SEVERE HEADACHE SURGICAL HISTORY OVARIES AND FALLOPIAN TUBES AND ADHESION 12/05/15 TUBAL LIGATION 01/06/1993 CYSTOSCOPES X2-3 2006 HYSTERSCOPES X2 08/08/2009 COLONSCOPY ENDOSCOPY LEFT LABRAL TEAR REPAIR WITH A PARTIAL REMOVAL OFCOLLAR BONE 12/23/2004 TOOTH EXTRACTIONS BX RIGHT KIDNEY 03/26/2016 RIGHT PARTIAL NEPHRECTOMY 05/04/16 HOSPITALIZATION/MAJOR DIAGNOSTIC PROCEDURE HYSTERECTOMY 01/06/93 08/27/91 CHILDBIRTH 01/05/93 CHILDBIRTH REVIEW OF SYSTEMS REVIEWED BY: PROVIDER: HIRAL JETER MD . CONSTITUTIONAL: ANY CHANGE IN YOUR MEDICAL CONDITION? YOON FROM WORKERS COMP DISAGREES WITH OUR MD AND REFUSING TO CARE FOR PT . CHILLS NO . FEVER NO . INFECTION: DO YOU HAVE NEW INFECTIONS? NO . DO YOU HAVE HISTORY OF MRSA? NO . MUSCULOSKELETAL: ANY NEW PATTERNS OF PAIN OR NUMBNESS? NO . GASTROENTEROLOGY: ANY NEW CHANGE IN BOWEL CONTROL? NO . GENITOURINARY: ANY NEW CHANGE IN BLADDER CONTROL? NO . IS THERE A CHANCE YOU COULD BE ? NO . HEMATOLOGY/LYMPH: DO YOU TAKE ANY BLOOD THINNERS? (FOR EXAMPLE- COUMADIN, PLAVIX, AGGRENOX, PLATEL, PRADAXA, OR XARELTO) NO . WHEN WAS YOUR LAST DOSE? DATE: TIME: . NEUROLOGY: HAVE YOU FALLEN IN THE PAST 6 MONTHS? NO . ANY NEW EXTREMITY NUMBNESS OR WEAKNESS? NO . CARDIOLOGY: DO YOU HAVE A PACEMAKER OR DEFIBRILLATOR? NO . RESPIRATORY: HAVE YOU BEEN SICK IN THE PAST WEEK? NO . FEVER NO . FLU LIKE SYMPTOMS? NO . COUGH NO . INTEGUMENTARY: DO YOU HAVE ANY RASHES OR OPEN SORES? NO . ALLERGIC/IMMUNO: ARE YOU ALLERGIC TO SHELLFISH OR IV DYE? NO . ANY NEW ALLERGIES? NO . PSYCHIATRIC: DO YOU HAVE THOUGHTS OF HURTING YOURSELF OR SOMEONE ELSE? NO . ARE YOU ABUSED, NEGLECTED, OR IN AN UNSAFE ENVIRONMENT? NO . ENDOCRINOLOGY: ARE YOU DIABETIC? NO . OTHER: DO YOU NEED ANY PRESCRIPTIONS? NO . IF YES, PLEASE LIST: ____ . ANY NEW PROBLEMS WITH YOUR MEDICATIONS? NO . WHEN DID YOU LAST EAT? ____ . WHEN DID YOU LAST DRINK? ____ . WHAT DID YOU LAST DRINK? ____ . NAME OF PERSON DRIVING YOU HOME? ____ . DO YOU HAVE ANY OTHER QUESTIONS OR CONCERNS W/C CONTINUES TO DENY TREATMENTS AND MEDS . VITAL SIGNS WT 138 LBS, HT 66 IN, BMI 22.27 INDEX, BP 135/94 MM HG, HR 88 /MIN, RR 16 /MIN, TEMP 97.7 F, OXYGEN SAT % 100%, NA INITIALS SC 16:05, REVIEWED BY: ENE. EXAMINATION : PATIENT IS ALERT O X 3 AND COOPERATIVE. TENDERNESS IN THE LEFT SHOULDER AREA. HYPERPATHIA IN THE BACK SHOULDER REGION. ALLODYNIA OVER SURGICAL SCAR OF RIGHT SHOULDER. LEFT ARM WEAKER THEN THE RIGHT AT EXTENSION AND FLEXION. LEFT HAND FISH HATCHERY MAN WEAKER THEN THE RIGHT. ABDUCTION OF LEFT ARM IS 30 DEGREES WHILE RIGHT ARM IS 90 DEGREES. MRI OF THE LEFT SHOULDER SHOWS TENDINITIS AND A ANTERIOR LABRAL TEAR. ASSESSMENTS PAIN IN LEFT SHOULDER - M25.512 (PRIMARY) OTHER CHRONIC PAIN - G89.29 MYALGIA - M79.1 TREATMENT PAIN IN LEFT SHOULDER NOTES: WE DISCUSSED SEVERAL ISSUES WITH MRS. PRIEST'S PAIN MANAGEMENT CASE. AT THIS TIME THE PATIENT WILL CONTINUE WITH THE SAME MEDICATION REGIME. PATIENT IS CURRENTLY USING NORCO FOR THE SOMATIC PAIN, LIDOCAINE FOR THE NEUROPATHIC PAIN, AND TIZANIDINE FOR THE MUSCLE SPASMS. I WOULD LIKE THE PATIENT TO DECREASE THE USE OF NORCO TO 3 TABLETS A DAY. I WOULD ALSO LIKE TO SPEAK TO THE PATIENT PSYCHIATRIST TO DISCUSS POSSIBLE MEDICATION CHANGES. PATIENT DENIES ABUSE OF ANY MEDICATION, DENIES USE OF ILLEGAL SUBSTANCES, AND STATES THAT SHE IS ONLY USING THE MEDICATION FOR PAIN MANAGEMENT. URINE TOXICOLOGY REPORT DONE ON 03/29/17 SHOWS CONSISTENT RESULTS WITH THE PATIENT'S MEDICATION LIST. PATIENT BROUGHT THE MEDICATIONS TO THE VISIT IN THEIR ORIGINAL BOTTLES. WE WILL PERFORM A RANDOM PILL COUNT TODAY. I WOULD LIKE THE PATIENT TO CONTINUE PHYSICAL THERAPY DUE TO HER STATING THE MYOFASCIAL RELEASE AIDED IN PAIN RELIEF AND INCREASED MOBILITY AND FUNCTIONALITY. PATIENT WILL RETURN TO THE CLINIC IN 3 WEEKS TO DISCUSS HOW THE DECREASE IN MEDICATION WENT. INSTRUCTIONS WERE GIVEN, QUESTIONS WERE ANSWERED, PATIENT REPORTS UNDERSTANDING AND AGREES WITH THE PLAN. I, DIAZ GRULLON, DOCUMENTED THE ABOVE INFORMATION ACTING A SCRIBE FOR DR. JETER. I HAVE REVIEWED THE ABOVE DOCUMENT, WRITTEN BY DIAZ CORRIGAN AND I VERIFY THAT IT IS ACCURATE. PROCEDURES PN WORKMANS' COMP OPINION IN YOUR OPINION, WAS THE INCIDENT THAT THE PATIENT DESCRIBED THE COMPETENT MEDICAL CAUSE OF THIS INJURY/ILLNESS? YES ARE THE PATIENT'S COMPLAINTS CONSISTENT WITH HIS/HER HISTORY OF THE INJURY/ILLNESS? YES IS THE PATIENT'S HISTORY OF THE INJURY/ILLNESS CONSISTENT WITH YOUR OBJECTIVE FINDING? YES WHAT IS THE PERCENTAGE OF TEMPORARY IMPAIRMENT? MARKED = 75% IS THE PATIENT WORKING? NO DOCTOR ON SITE: HIRAL COLLINS MD PROCEDURE CODES FA211 ESTABILISHED PATIENT [facility] FACILITY CHARGE G8427 DOC MEDS VERIFIED W/PT OR RE G8730 PAIN ASSESS POS TOOL F/U PLAN DOC DISPOSITION & COMMUNICATION FOLLOW UP 3 WEEKS ELECTRONICALLY SIGNED BY HIRAL JETER MD ON 07/01/2017 AT 03:27 PM EDT DISCLAIMER : THIS IS A VISIT SUMMARY EXTRACTED FROM THE [employer] CHART. IT IS NOT A COPY OF THE [employer] PROGRESS NOTE. HECTOR
== END ==
LOC: M PAIN 16:00
PROVIDERS: ATTEND Anesthesiology
DX: M25.512 Pain in left shoulder (principal); G89.29 Other chronic pain; M79.1 Myalgia; I10 Essential (primary) hypertension; R56.9 Unspecified convulsions; K21.9 Gastro-esophageal reflux disease without esophagitis; F43.10 Post-traumatic stress disorder, unspecified; E55.9 Vitamin D deficiency, unspecified; D50.9 Iron deficiency anemia, unspecified; E03.9 Hypothyroidism, unspecified; F41.9 Anxiety disorder, unspecified; Z88.0 Allergy status to penicillin; Z88.5 Allergy status to narcotic agent; Z88.8 Allergy status to other drugs, medicaments and biological substances; Z88.6 Allergy status to analgesic agent; L23.1 Allergic contact dermatitis due to adhesives; Z79.891 Long term (current) use of opiate analgesic; Z79.1 Long term (current) use of non-steroidal anti-inflammatories (NSAID); Z79.899 Other long term (current) drug therapy

== ENCOUNTER → 2017-06-24 | Outpatient (REF) | payer MEDICARE, BC | LOC: M LAB REF 17:10 | PROVIDERS: ATTEND Internal Medicine Medical Oncology | DX: C64.9 Malignant neoplasm of unspecified kidney, except renal pelvis (principal) ==

== ENCOUNTER → 2017-09-13 | Outpatient (CLI) | payer OTHER, MEDICARE, BC | LOC: M PAIN 10:30 | DX: M25.512 Pain in left shoulder (principal); G89.29 Other chronic pain; M79.1 Myalgia; I10 Essential (primary) hypertension; E78.00 Pure hypercholesterolemia, unspecified; G43.909 Migraine, unspecified, not intractable, without status migrainosus; R56.9 Unspecified convulsions; K21.9 Gastro-esophageal reflux disease without esophagitis; F43.10 Post-traumatic stress disorder, unspecified; E55.9 Vitamin D deficiency, unspecified; E03.9 Hypothyroidism, unspecified; F41.9 Anxiety disorder, unspecified; F32.9 Major depressive disorder, single episode, unspecified; M19.90 Unspecified osteoarthritis, unspecified site; E16.2 Hypoglycemia, unspecified; K59.09 Other constipation; Z88.0 Allergy status to penicillin; Z88.8 Allergy status to other drugs, medicaments and biological substances; Z88.5 Allergy status to narcotic agent; Z88.6 Allergy status to analgesic agent; Z91.048 Other nonmedicinal substance allergy status; Z79.01 Long term (current) use of anticoagulants; Z79.891 Long term (current) use of opiate analgesic; Z79.899 Other long term (current) drug therapy; Z87.891 Personal history of nicotine dependence | CPT/HCPCS: G0463 ==

== ENCOUNTER → 2017-10-21 | Outpatient (REF) | payer MEDICARE, BC, OTHER ==
[2017-10-21 19:22] LABS: APPEARANCE, URINE CLEAR (CLEAR); BACTERIA, URINE AUTO NEGATIVE (NEGATIVE); BILIRUBIN, URINE AUTO NEGATIVE (NEGATIVE); BLOOD, URINE BLOOD NEGATIVE (NEGATIVE); COLOR, URINE STRAW (YELLOW); GLUCOSE, URINE (UA) AUTO NEGATIVE (NEGATIVE); KETONE, URINE AUTO NEGATIVE (NEGATIVE); LEUKOCYTE ESTERASE, URINE AUTO NEGATIVE (NEGATIVE); NITRITE, URINE AUTO NEGATIVE (NEGATIVE); PROTEIN, URINE AUTO NEGATIVE (NEGATIVE); RBC, URINE AUTO 0 /HPF (0-3); SPECIFIC GRAVITY URINE AUTO 1.011 (1.002-1.035); SQUAMOUS EPITHELIAL CELL UR AU 0 /HPF (0-6); UROBILINOGEN, URINE AUTO 0.2 mg/dL (0.0-2.0); WBC, URINE AUTO 0 /HPF (0-3)
== END ==
LOC: M SMT 17:45
DX: R39.89 Other symptoms and signs involving the genitourinary system (principal)
CPT/HCPCS: 81001

== ENCOUNTER → 2017-11-21 | Outpatient (CLI) | payer MEDICARE, BC | LOC: M PAIN 14:30 | DX: M25.512 Pain in left shoulder (principal); M79.1 Myalgia; I10 Essential (primary) hypertension; E78.00 Pure hypercholesterolemia, unspecified; G43.909 Migraine, unspecified, not intractable, without status migrainosus; R56.9 Unspecified convulsions; F43.10 Post-traumatic stress disorder, unspecified; F31.9 Bipolar disorder, unspecified; E55.9 Vitamin D deficiency, unspecified; E03.9 Hypothyroidism, unspecified; F41.9 Anxiety disorder, unspecified; R73.9 Hyperglycemia, unspecified; M22.2X1 Patellofemoral disorders, right knee; M22.2X2 Patellofemoral disorders, left knee; E61.2 Magnesium deficiency; D32.9 Benign neoplasm of meninges, unspecified; E88.81 Metabolic syndrome and other insulin resistance; D52.9 Folate deficiency anemia, unspecified; Z79.01 Long term (current) use of anticoagulants; Z79.891 Long term (current) use of opiate analgesic; Z79.899 Other long term (current) drug therapy; Z88.0 Allergy status to penicillin; Z88.5 Allergy status to narcotic agent; Z88.6 Allergy status to analgesic agent; Z88.8 Allergy status to other drugs, medicaments and biological substances; Z91.09 Other allergy status, other than to drugs and biological substances; Z87.891 Personal history of nicotine dependence | CPT/HCPCS: G0463 ==

== ENCOUNTER → 2018-01-22 | Outpatient (CLI) | payer OTHER | LOC: M PAIN 14:00 | DX: M25.512 Pain in left shoulder (principal); M79.1 Myalgia; I10 Essential (primary) hypertension; E78.00 Pure hypercholesterolemia, unspecified; G43.909 Migraine, unspecified, not intractable, without status migrainosus; R56.9 Unspecified convulsions; F43.10 Post-traumatic stress disorder, unspecified; E55.9 Vitamin D deficiency, unspecified; E03.9 Hypothyroidism, unspecified; F41.9 Anxiety disorder, unspecified; F31.9 Bipolar disorder, unspecified; Z79.01 Long term (current) use of anticoagulants; Z79.891 Long term (current) use of opiate analgesic; Z79.899 Other long term (current) drug therapy; Z88.0 Allergy status to penicillin; Z88.5 Allergy status to narcotic agent; Z88.6 Allergy status to analgesic agent; Z88.8 Allergy status to other drugs, medicaments and biological substances; Z91.041 Radiographic dye allergy status; Z87.891 Personal history of nicotine dependence | CPT/HCPCS: G0463 ==

== ENCOUNTER → 2018-03-11 | Outpatient (CLI) | payer OTHER | LOC: M PAIN 15:00 | DX: M25.512 Pain in left shoulder (principal); M79.1 Myalgia; I10 Essential (primary) hypertension; E78.00 Pure hypercholesterolemia, unspecified; G43.909 Migraine, unspecified, not intractable, without status migrainosus; R56.9 Unspecified convulsions; F43.10 Post-traumatic stress disorder, unspecified; F31.9 Bipolar disorder, unspecified; E03.9 Hypothyroidism, unspecified; M19.90 Unspecified osteoarthritis, unspecified site; E88.81 Metabolic syndrome and other insulin resistance; Z79.01 Long term (current) use of anticoagulants; Z79.891 Long term (current) use of opiate analgesic; Z79.899 Other long term (current) drug therapy; Z88.0 Allergy status to penicillin; Z88.5 Allergy status to narcotic agent; Z88.6 Allergy status to analgesic agent; Z88.8 Allergy status to other drugs, medicaments and biological substances; Z91.09 Other allergy status, other than to drugs and biological substances; Z91.041 Radiographic dye allergy status; Z86.19 Personal history of other infectious and parasitic diseases; Z87.891 Personal history of nicotine dependence | CPT/HCPCS: G0463 ==

== ENCOUNTER → 2018-06-19 | Outpatient (CLI) | payer MEDICARE, BC | LOC: M PAIN 15:15 | DX: M25.512 Pain in left shoulder (principal); M79.7 Fibromyalgia; I10 Essential (primary) hypertension; E78.00 Pure hypercholesterolemia, unspecified; G43.909 Migraine, unspecified, not intractable, without status migrainosus; R56.9 Unspecified convulsions; F43.10 Post-traumatic stress disorder, unspecified; E55.9 Vitamin D deficiency, unspecified; E03.9 Hypothyroidism, unspecified; F41.9 Anxiety disorder, unspecified; F32.9 Major depressive disorder, single episode, unspecified; E88.81 Metabolic syndrome and other insulin resistance; Z79.01 Long term (current) use of anticoagulants; Z79.891 Long term (current) use of opiate analgesic; Z79.899 Other long term (current) drug therapy; Z88.0 Allergy status to penicillin; Z88.5 Allergy status to narcotic agent; Z88.6 Allergy status to analgesic agent; Z88.8 Allergy status to other drugs, medicaments and biological substances; Z91.09 Other allergy status, other than to drugs and biological substances; Z91.041 Radiographic dye allergy status; Z87.891 Personal history of nicotine dependence; Z85.528 Personal history of other malignant neoplasm of kidney; Z90.49 Acquired absence of other specified parts of digestive tract | CPT/HCPCS: G0463 ==

== ENCOUNTER → 2018-11-14 | Outpatient (CLI) | payer OTHER, BC ==
[~2018-11-14] MED LIST changes: -CHRO200C PO; +CHRO200C2 PO; +DRON5CAP13 PO; -DRON5CAP6 PO; +FOLI1TAB11 PO; -FOLI1TAB4 PO; +TIZA4CAP PO; -TIZA4CAP3 PO
--- NOTE | 2018-11-28 01:39 | ECWPNPC ---
PATIENT NAME: JASPER PRIEST : 1970 GENDER: FEMALE VISIT DATE: 11/14/2018 DISCHARGE DATE: 11/14/18 0000 VISIT LOCKED DATE TIME: PHYSICIAN: HIRAL JETER MD RESOURCE: HIRAL JETER MD REASON FOR APPOINTMENT 1. W/C, SHOULDERS HISTORY OF PRESENT ILLNESS HISTORY OF PRESENT ILLNESS: PAIN THE PATIENT DESCRIBES THE PAIN... 48 YEAR OLD FEMALE PATIENT WITH A HISTORY OF CHRONIC LEFT SHOULDER PAIN. THE PATIENT DESCRIBES HER PAIN ACHING, BURNING, SORE, TENDER, SHARP, STABBING, SHOOTING, AND CONTINUOUS WITH A PAIN SCORE OF 5-10/10 DEPENDING ON PHYSICAL ACTIVITY. THE PATIENT WAS HURT IN A WORK RELATED INJURY ON 12/19/1999 WHILE WORKING AT [employer] WHEN SHE WAS USING A [employer]CETTA LIFT AND SOMEONE HELD ONTO THE LIFT SHE WAS PULLING IT, CAUSING HER TO INJURE HER LEFT SHOULDER. THE PATIENT SAYS THAT SHE HAS DIFFICULTY DOING DAILY ACTIVITIES SUCH COOKING, CLEANING, AND GETTING GROCERIES DUE TO THIS PAIN. THE PATIENT SAYS THAT SHE HAS SPASMS IN HER LEFT SHOULDER THAT HAVE BEEN CAUSING HEADACHES. THE PATIENT IS CURRENTLY USING HYDROCODONE 3 TABLETS PER DAY FOR SOMATIC PAIN AND TIZANIDINE FOR SEVERE SPASMS. THE PATIENT SAYS THAT THE USE OF THESE MEDICATIONS HELP HER REMAIN MOBILE AND FUNCTIONAL. PATIENT DENIES UNEXPLAINABLE WEIGHT LOSS, FEVER, CHILLS, NEW CHANGES ON HER URINARY OR BOWEL CONTROL. FALL RISK SCREENING: SCREENING : NO FALLS IN THE PAST YEAR. CURRENT MEDICATIONS TAKING MIRALAX PACKET 1 PACKET MIXED WITH 8 OUNCES OF FLUID ORALLY ONCE A DAY TAKING FLONASE 50 MCG/ACT SUSPENSION 1 PUFF IN EACH NOSTRIL NASALLY ONCE DAILY NEEDED TAKING PHENERGAN 25 MG SUPPOSITORY 1 SUPPOSITORY OR 25 MG TABAS NEEDED RECTAL EVERY 6 HRS TAKING BENADRYL 25 MG CAPSULE 1 CAPSULE ORALLY EVERY 6 HRS NEEDED TAKING VITAMIN D3 2000 UNIT CAPSULE 1 TABLET ORALLY ONCE A DAY TAKING DULCOLAX 5 MG TABLET DELAYED RELEASE 2 TABLETS NEEDED FOR CONSTIPATION ORALLY ONCE A DAY TAKING SYNTHROID 75 MCG TABLET 1 TABLET ORALLY ONCE A DAY TAKING FENOFIBRATE 160 MG TABLET 1/2 TABLET WITH A MEAL ORALLY ONCE A DAY TAKING ZINC 50 MG TABLET 1 -2 ORALLY ONCE A DAY NEEDED TAKING MAGNESIUM 500 MG TABLET 2500MG 1 TABLET WITH A MEAL ORALLY TWICE DAILY TAKING POTASSIUM GLUCONATE 595 MG TABLET ORALLY ONCE A DAY TAKING OMEGA-3 KRILL OIL 300 MG CAPSULE ORALLY DAILY TAKING CALCIUM 1000 MG 1 TAB ORAL DAILY TAKING PROBIOTIC CAPSULE ORALLY DAILY TAKING GARCINIA CAMBOGIA-CHROMIUM 500-200 MG-MCG TABLET ORALLY DAILY TAKING GINKGO BILOBA 400 MG CAPSULE ORALLY DAILY TAKING ECHINACEA COMB/FERNÁNDEZ SEAL CAPSULE ORALLY DAILY NEEDED TAKING SALINE NASAL SPRAY 0.65 % SOLUTION NASALLY TAKING DEXTROAMPHETAMINE SULFATE ER 10 MG CAPSULE EXTENDED RELEASE 24 HOUR 2 CAPSULES IN AM, 1 AT NOON ORALLY TAKING FOLIC ACID 1 MG TABLET ORALLY TAKING ZANTAC 150 MG TABLET 1 TABLET ORALLY BID TAKING MECLIZINE HCL 25 MG TABLET CHEWABLE 1 TABLET TID ORALLY 3 A DAY TAKING DRONABINOL 5 MG CAPSULE 1 CAPSULE BEFORE LUNCH AND SUPPER ORALLY TWICE A DAY NEEDED TAKING VITAMIN E 400 UNIT TABLET CHEWABLE DIRECTED ORALLY TAKING CINNAMON PLUS CHROMIUM 100-500 MCG-MG CAPSULE ORALLY TAKING 5-HTP 50 MG CAPSULE 1 CAPSULE WITH A MEAL ORALLY ONCE A DAY TAKING ALPRAZOLAM 1 MG TABLET 1 TABLET ORALLY FOUR TIMES A DAY TAKING ELMIRON 100 MG CAPSULE 1 CAPSULE ON AN EMPTY STOMACH ORALLY THREE TIMES A DAY, NOTES: BLOOD THINNER TAKING PYRIDIUM 100 MG TABLET DIRECTED ORALLY THREE TIMES DAILY TAKING TROSPIUM CHLORIDE 20 MG TABLET 1 TABLET AT BEDTIME ON AN EMPTY STOMACH ORALLY BID TAKING LINZESS 145 MCG CAPSULE 1 CAPSULE ORALLY ONCE A DAY TAKING B-12 COMPLIANCE INJECTION 1000 MCG/ML KIT 1 ML INJECTION TAKING NORCO 7.5-325 MG TABLET 1 TABLET ORALLY EVERY 6 HRS PRN PAIN MDD=3 TAKING ZANAFLEX 4 MG TABLET 1 TABLET NEEDED ORALLY FOR SPASMS AND PAIN BEFORE BEDTIME MAY REPEAT IN 5 HRS MDD2 NOT-TAKING PREDNISONE (ARNIE) NOT-TAKING TROSPIUM CHLORIDE 20 MG TABLET 1 TABLET AT BEDTIME ON AN EMPTY STOMACH ORALLY ONCE A DAY, NOTES: DUPLICATE NOT-TAKING BELBUCA 150 MCG FILM 1 FILM TO THE GUM BUCALLY EVERY 12 HRS MDD=2 MEDICATION LIST REVIEWED AND RECONCILED WITH THE PATIENT PAST MEDICAL HISTORY FIBROMYALGIA HYPERTENTION HIGH CHOLESTEROL CHRONIC MIGRAINES DYSPAREUNIA HEMANGIOMA SEIZURES/NARCOLEPSY IC KIDNEY STONES IBS GERD CHRONIC PAIN PTSD VITAMIN D DEFICIENCY IRON DEFICIENCY ANEMIA HYPOTHYROIDISM ANXIETY DEPRESSION OSTEOARTHRITIS DDD-C6-7 CERVICAL NEURALGIA DIPLOPIA EXTREMITY PARESTHESIAS GALLBLADDER STONES OVARIAN CYST FIBRIODS HYPOGLYCEMIA BIPOLAR SOFT AFFECTIVE SPECTRUM D/O CARPAL TUNNEL -BILATERAL PATELLO FEMORAL SYNDROME-ZEENAT KNEES RENAL CANCER RIGHT LUMBAR DISC 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 C6-7 PAC MAGNEAISUM DEFICENCY L4-L5 DISC PROTRUSION DEGENERATIVE DISC T9-T10, C5-6, C6-7 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 METABOLIC SYNDROM DIFFICULTY CONCENTRATING/MEMORY LOSS/SPEACH, FORMING WORDS AND THOUGHTS DYSLEXIA DISC SPACE NARROWING L5-S1 MUCOSAL THICKENING/RETENTION CYSTS IN MAXILLARY SINUS RIGHT HYDROSALPINX RIGHT KIDNEY LESION GALL STONES CHROMOPHOBE TUMOR FOLIC ACID DEFICIENCY TWO BLOOD TRANSFUSIONS LOW DENSITY LESION IN SLPEEN EPSTINE-BAR VIRUS ALLERGIES PENICILLIN (FOR ALLERGIES USE ONLY): RASH,ELEVATED TEMP - ALLERGY CYPROHEPTADINE HCL: RASH,HEART PALPITATIONS - ALLERGY DARVOCET-N 50: EXACERBATES HEADACHES - ALLERGY TOPAMAX: PALPITATIONS - ALLERGY REMERON: SEVERE HEADACHES - ALLERGY MOBIC: RECTAL BLEEDING ,ABDOMINAL PAIN - ALLERGY CELEBREX: THROAT EDEMA - ALLERGY NAPROSYN: THROAT EDEMA - ALLERGY EFFEXOR: SEVERE HEADACHES - ALLERGY VERAPAMIL HCL: SOB,LOWER PERIPHAL EDEMA ,ABDOMINAL DISTENTION - ALLERGY LYRICA: ELEVATED TEMP,GUMS RECECDED - ALLERGY DEPAKOTE: HEART PALPITATIONS - ALLERGY FENTANYL: SEVERE ITCHING - ALLERGY NUVIGIL: MIGRAINE HEADACHES,VERTIGO,DIZZINESS - ALLERGY CYMBALTA: HEADACHES - ALLERGY GANDOLINUM MRI DYE: CARDIAC ISSUES - ALLERGY CIPRO: CHEST PAIN,SOB,LBP - ALLERGY NORTRIPYTLINE HCL: HEADACHES - ALLERGY RITALIN: HEART PALPITATIONS - ALLERGY ADHESIVE BANDAGES: SENSITIVITY - ALLERGY CILANTRO: SOB,HEART PALPITATIONS - ALLERGY NKDA: MIGRAINES - ALLERGY SEROQUEL: MULTIPLE SIDE EFFECTS - ALLERGY ABILIFY: CONSTIPATION DEPRESSION - SIDE EFFECTS CELEXA: MIGRAINES - SIDE EFFECTS LAMOTRIGINE: RAGE IRRITABILITY - SIDE EFFECTS ZYPREXA: MIGRAINES - SIDE EFFECTS MOTRIN: CAN NOT HAVE WHILE ON MEDICATION - SIDE EFFECTS ZONISAMIDE: UNABLE TO FUNCTION ZOFRAN: NAUSEA/VOMITING - SIDE EFFECTS MOVANTIK: NAUSEA/VOMITING - SIDE EFFECTS DOBUTAMINE HCL: HIVES - ALLERGY LATUDA: CANT RECALL - SIDE EFFECTS PROPRANOLOL HCL: RECEDING GUMS ASPERTAME: CVA/TIA, MIGRAINES RITALIN: HEART PALPITATON IV DYE LOSARTAN POTASSIUM: CHEST PAIN - ALLERGY SURGICAL HISTORY OVARIES AND FALLOPIAN TUBES AND ADHESION 12/05/15 TUBAL LIGATION 01/06/1993 CYSTOSCOPES X2-3 2006 HYSTERSCOPES X2 08/08/2009 COLONSCOPY ENDOSCOPY LEFT LABRAL TEAR REPAIR WITH A PARTIAL REMOVAL OFCOLLAR BONE 12/23/2004 TOOTH EXTRACTIONS HYSTERSCOPE UTERINE DILATION & SCRAPING 2009 BX RIGHT KIDNEY 03/26/2016 RIGHT PARTIAL NEPHRECTOMY 05/04/16 5 WISDOM TEETH EXTRACTED 1992 VAGINAL HYSTERECTOMY OF UTERUS & CERVIX CHEMICAL DESTRUCTION OF NERVES TO CERVICAL MUSCLES, FACIAL NERVES AND FACIAL MUSCLES 4 MOLARS REMOVED IRON SUPPLEMENT IV THERAPY LAPROSCOPIC SURGERY TO REMOVE FALLOPIAN TUBES, BOTH OVARIES, CYSTS, ADHESIONS, MASSES 2015 ENDOSCOPY AND EGD 2016 R KIDNEY PARTIAL REMOVAL CANCER TUMOR 2016 FAMILY HISTORY FATHER: , [place]-PRIOR TO AGE 50 PROSTATE CANCER, DIAGNOSED WITH HYPERTENSION, CANCER MOTHER: ALIVE, THYROID ISSUES, OTHER, DIABETES, HEART DISEASE SIBLINGS: MIDDLE SISTER- HEART ISSUES 1 BROTHER(S) , 2 SISTER(S) - HEALTHY. 2 SON(S) - HEALTHY. FATHER PROSTATE CANCERBOTH SISTERS WITH MAJOR BACK SURGERY. SOCIAL HISTORY GENERAL: TOBACCO USE ARE YOU A:FORMER SMOKER HOW LONG HAS IT BEEN SINCE YOU LAST SMOKED?> 10 YEARS ALCOHOL SCREENING DID YOU HAVE A DRINK CONTAINING ALCOHOL IN THE PAST YEAR?NO POINTS0 INTERPRETATIONNEGATIVE RECREATIONAL DRUG USE DRUG USE?NO CAFFEINE CAFFEINE USE?NO SEXUAL HX HAD SEX IN THE LAST 12 MONTHS (VAGINAL, ORAL, OR ANAL)?NO HAVE YOU EVER HAD AN STD?NO MANDAEN [id number] OTHER LANGUAGE LANGUAGES SPOKEN:SLOVENIAN LEARNING BARRIERS / SPECIAL NEEDS CHANGE FROM LAST VISIT?NO BARRIERS TO LEARNING?NO HEARING IMPAIRED?NO VISION IMPAIRED?NO COGNITIVELY IMPAIRED?NO READINESS TO LEARN?YES LEARNING PREFERENCES?NO LEARNING CAPABILITIES PRESENT?YES EMOTIONAL BARRIERS?YES COMMENTSDOCUMENTED IN NOTES SECTION> BIPOLAR SPECIAL DEVICES?YES CANE OVERHEAD GARAGE DOOR HANGER NEEDED?NO MARITAL STATUS: . PAIN CLINIC PFS, CLERGY, PUBLIC HEALTH REFERRALS PFS REFERRAL NEEDED?NO CLERGY REFERRAL NEEDED?NO PUBLIC HEALTH REFERRAL NEEDED?NO WAS THE PROVIDER NOTIFIED OF ANY PERTINENT INFO?NO HAS THE PATIENT BEEN EDUCATED REGARDING HIS/HER PLAN OF CARE?YES HAS THE PATIENT BEEN EDUCATED REGARDING PAIN, THE RISK FOR PAIN, THE IMPORTANCE OF EFFECTIVE PAIN MANAGEMENT, AND THE PAIN ASSESSMENT PROCESS?YES ADVANCE DIRECTIVE ADVANCE DIRECTIVE DISCUSSED WITH PATIENT:YES YEFRI PRIEST- [phone] KATE RAMÍREZ-SISTER [phone] WITH 2 CHILDREN.REVIEWED WITH PT 01/22/18 1429 BVREVIEWED WITH PT 06/19/18 1600 BV. HOSPITALIZATION/MAJOR DIAGNOSTIC PROCEDURE HYSTERECTOMY 01/06/93 08/27/91 CHILDBIRTH 01/05/93 CHILDBIRTH REVIEW OF SYSTEMS REVIEWED BY: PROVIDER: HIRAL JETER MD . CONSTITUTIONAL: ANY CHANGE IN YOUR MEDICAL CONDITION? NO . CHILLS NO . FEVER NO . INFECTION: DO YOU HAVE NEW INFECTIONS? YES, RIGHT MIDDLE FINGER AND UTI, TX'D W ABX, BLADDER NOT BETTER PCP AWARE, BUT FINGER IS BETTER . DO YOU HAVE HISTORY OF MRSA? NO . MUSCULOSKELETAL: ANY NEW PATTERNS OF PAIN OR NUMBNESS? NO . GASTROENTEROLOGY: ANY NEW CHANGE IN BOWEL CONTROL? NO . GENITOURINARY: ANY NEW CHANGE IN BLADDER CONTROL? NO . IS THERE A CHANCE YOU COULD BE ? NO . HEMATOLOGY/LYMPH: DO YOU TAKE ANY BLOOD THINNERS? (FOR EXAMPLE- COUMADIN, PLAVIX, AGGRENOX, PLATEL, PRADAXA, OR XARELTO) YES, ELMIRON . WHEN WAS YOUR LAST DOSE? DATE: TIME: . NEUROLOGY: HAVE YOU FALLEN IN THE PAST 12 MONTHS? YES, FELL LAST WEEK IN THE SNOW . ANY NEW EXTREMITY NUMBNESS OR WEAKNESS? YES, L>R, ARM WEAKNESS . CARDIOLOGY: DO YOU HAVE A PACEMAKER OR DEFIBRILLATOR? NO . RESPIRATORY: HAVE YOU BEEN SICK IN THE PAST WEEK? YES . FEVER YES, RESOLVED . FLU LIKE SYMPTOMS? NO . COUGH YES, GETTING BETTER . INTEGUMENTARY: DO YOU HAVE ANY RASHES OR OPEN SORES? YES, RIGHT HAND DIGIT #3 RESOLVING . ALLERGIC/IMMUNO: ARE YOU ALLERGIC TO IV DYE? NO . ANY NEW ALLERGIES? YES, LOSARTAN . PSYCHIATRIC: DO YOU HAVE THOUGHTS OF HURTING YOURSELF OR SOMEONE ELSE? NO . ARE YOU ABUSED, NEGLECTED, OR IN AN UNSAFE ENVIRONMENT? NO . ENDOCRINOLOGY: ARE YOU DIABETIC? NO . OTHER: DO YOU NEED ANY PRESCRIPTIONS? NO . IF YES, PLEASE LIST: ____ . ANY NEW PROBLEMS WITH YOUR MEDICATIONS? NO . WHEN DID YOU LAST EAT? ____ . WHEN DID YOU LAST DRINK? ____ . WHAT DID YOU LAST DRINK? ____ . NAME OF PERSON DRIVING YOU HOME? ____ . DO YOU HAVE ANY OTHER QUESTIONS OR CONCERNS YES, INCREASED MUSCLE PAIN W CONTRACTIONS. IS T-CELLS A POSSIBLE TX FOR SHOULDER PAIN? . VITAL SIGNS WT 144 LBS, HT 66 IN, BMI 23.24 INDEX, BP 155/100 MM HG, HR 87 /MIN, RR 16 /MIN, TEMP 97.7 F, OXYGEN SAT % 99, REVIEWED BY: EM. EXAMINATION GENERAL EXAMINATION: PATIENT IS ALERT O X 3 AND COOPERATIVE. TENDERNESS OVER THE LEFT SHOULDER. PATIENT HAS DIFFICULTY ABDUCTING THE LEFT UPPER EXTREMITY TO SHOULDER LEVEL. MRI OF THE LEFT SHOULDER DONE ON 11/01/2015 SHOWS MILD TENDINITIS. ASSESSMENTS PAIN IN LEFT SHOULDER - M25.512 (PRIMARY) OTHER CHRONIC PAIN - G89.29 TENDINITIS OF LEFT SHOULDER - M75.82 TREATMENT PAIN IN LEFT SHOULDER CLINICAL NOTES: WE DISCUSSED SEVERAL ISSUES WITH MRS. PRIEST'S PAIN MANAGEMENT CASE. THE PATIENT WILL CONTINUE WITH HYDROCODONE FOR THE SOMATIC PAIN AND TIZANIDINE FOR SEVERE ACUTE SPASMS. THE PATIENT BROUGHT HER MEDICATION TO TODAY'S VISIT IN THE ORIGINAL BOTTLE. ISTOP __#[id number] WAS REVIEWED. URINE TOXICOLOGY DONE ON 09/13/2017 SHOWS CONCURRENT RESULTS. I WILL PERFORM A PILL COUNTING AND A URINE TOXICOLOGY TODAY. THE PATIENT WILL FOLLOW UP IN 3 MONTHS. INSTRUCTIONS WERE GIVEN, QUESTIONS WERE ANSWERED, PATIENT REPORTS UNDERSTANDING AND AGREES WITH THE PLAN. I, GRACE WISDOM, DOCUMENTED THE ABOVE INFORMATION ACTING A SCRIBE FOR DR. JETER. I HAVE REVIEWED THE ABOVE DOCUMENT, WRITTEN BY GRACE MOYIBShyam AND I VERIFY THAT IT IS ACCURATE. . OTHERS REFILL MIRALAX PACKET, 1 PACKET MIXED WITH 8 OUNCES OF FLUID, ORALLY, ONCE A DAY, 30 DAY(S), 30, REFILLS 2 PROCEDURES PN WORKMANS' COMP OPINION IN YOUR OPINION, WAS THE INCIDENT THAT THE PATIENT DESCRIBED THE COMPETENT MEDICAL CAUSE OF THIS INJURY/ILLNESS? YES ARE THE PATIENT'S COMPLAINTS CONSISTENT WITH HIS/HER HISTORY OF THE INJURY/ILLNESS? YES IS THE PATIENT'S HISTORY OF THE INJURY/ILLNESS CONSISTENT WITH YOUR OBJECTIVE FINDING? YES WHAT IS THE PERCENTAGE OF TEMPORARY IMPAIRMENT? MARKED = 75% IS THE PATIENT WORKING? NO DOCTOR ON SITE: HIRAL COLLINS MD PROCEDURE CODES FA211 ESTABILISHED PATIENT [facility] FACILITY CHARGE G8427 CURRENT MEDS W/DOSAGES DOCUMENTED G8730 PAIN ASSESS POS TOOL F/U PLAN DOC DISPOSITION & COMMUNICATION FOLLOW UP 3 MONTHS (REASON: W/C LEFT SHOULDER) ELECTRONICALLY SIGNED BY HIRAL JETER MD, MD ON 11/27/2018 AT 09:19 AM EDT DISCLAIMER : THIS IS A VISIT SUMMARY EXTRACTED FROM THE [employer] CHART. IT IS NOT A COPY OF THE [employer] PROGRESS NOTE. HECTOR
== END ==
LOC: M PAIN 12:30
PROVIDERS: ATTEND Anesthesiology
DX: M25.512 Pain in left shoulder (principal); M75.82 Other shoulder lesions, left shoulder; G89.29 Other chronic pain; M79.7 Fibromyalgia; I10 Essential (primary) hypertension; E78.00 Pure hypercholesterolemia, unspecified; G43.909 Migraine, unspecified, not intractable, without status migrainosus; R56.9 Unspecified convulsions; E55.9 Vitamin D deficiency, unspecified; E03.9 Hypothyroidism, unspecified; M19.90 Unspecified osteoarthritis, unspecified site; Z79.01 Long term (current) use of anticoagulants; Z79.891 Long term (current) use of opiate analgesic; Z79.899 Other long term (current) drug therapy; Z88.0 Allergy status to penicillin; Z88.5 Allergy status to narcotic agent; Z88.6 Allergy status to analgesic agent; Z88.8 Allergy status to other drugs, medicaments and biological substances; Z91.09 Other allergy status, other than to drugs and biological substances; Z87.891 Personal history of nicotine dependence; Z86.39 Personal history of other endocrine, nutritional and metabolic disease; Z86.59 Personal history of other mental and behavioral disorders; Z85.528 Personal history of other malignant neoplasm of kidney

== ENCOUNTER → 2018-12-31 | Outpatient (REF) | payer OTHER, BC ==
[~2018-12-31] MED LIST changes: -/DULO30CA PO; +BACL-60 PO; -BACL5TA PO; +CYMB1CAP5 PO; +VITA-183 PO; -VITA1CAP2 PO
== END ==
LOC: M LABNEURO 13:40
PROVIDERS: ATTEND Psychiatry & Neurology Neurology
DX: E53.8 Deficiency of other specified B group vitamins (principal)

== ENCOUNTER → 2019-02-27 | Outpatient (CLI) | payer OTHER, BC ==
--- NOTE | 2019-03-05 01:12 | ECWPNPC ---
PATIENT NAME: JASPER PRIEST : 1970 GENDER: FEMALE VISIT DATE: 02/27/2019 DISCHARGE DATE: 02/27/19 1351 VISIT LOCKED DATE TIME: PHYSICIAN: HIRAL JETER MD RESOURCE: HIRAL JETER MD REASON FOR APPOINTMENT 1. W/C LEFT SHOULDER HISTORY OF PRESENT ILLNESS HISTORY OF PRESENT ILLNESS: PAIN THE PATIENT DESCRIBES THE PAIN... 48 YEAR OLD FEMALE PATIENT WITH A HISTORY OF CHRONIC LEFT SHOULDER PAIN. THE PATIENT DESCRIBES THE PAIN ACHING, BURNING, STABBING, SHOOTING, SHARP, SORE, TENDER, NUMBNESS, PRICKLY, CONTINUOUS, NIGHTLY, AND DAILY WITH A PAIN SCORE OF 6-10/10 DEPENDING ON PHYSICAL ACTIVITY. THE PATIENT WAS HURT IN A WORK RELATED INJURY ON 12/19/1999 WHILE WORKING AT [employer] WHEN SHE WAS USING A [employer]CET[employer] LIFT AND SOMEONE WAS HOLDING ONTO THE LIFT SHE WAS PULLING IT, WHICH RESULTED IN HER LEFT SHOULDER INJURY. 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 THE PATIENT STATES SHE HAS GAINED QUITE A LOT OF WEIGHT DUE TO BEING INACTIVE BECAUSE SHE IS IN SO MUCH PAIN EVERY DAY. THE PATIENT STATES SHE IS USING HYDROCODONE AND TIZANIDINE TO CMM INSPECTOR WITH HER PAIN AND SEVERE, ACUTE SPASTICITY. THE PATIENT SAYS THE SPASMS HAVE SEVERELY GOTTEN WORSE LATELY. THE PATIENT SAYS HER PAIN IS WORSE AT NIGHT AND RIGHT IN THE MORNING, AND SHE OFTEN HAS DIFFICULTY GETTING OUT BED DUE TO THE SEVERE PAIN. THE PATIENT SAYS SHE USES TYLENOL AND IBUPROFEN IN BETWEEN MEDICATIONS BECAUSE HER MEDICATIONS DOES NOT LAST LONG ENOUGH OR COVER ALL OF HER PAIN. THE PATIENT MENTIONS IN THE PAST SHE HAS TRIED CELEBREX THAT GAVE HER AN ALLERGIC REACTION AND BELBUCA, WHICH GREATLY HELPED CONTROL HER PAIN THROUGH THE DAY. PATIENT DENIES UNEXPLAINABLE WEIGHT LOSS, FEVER, CHILLS, NEW CHANGES ON HER URINARY OR BOWEL CONTROL. FALL RISK SCREENING: SCREENING :NO FALLS REPORTED IN THE LAST YEAR CURRENT MEDICATIONS TAKING MIRALAX PACKET 1 PACKET MIXED WITH 8 OUNCES OF FLUID ORALLY ONCE A DAY TAKING FLONASE 50 MCG/ACT SUSPENSION 1 PUFF IN EACH NOSTRIL NASALLY ONCE DAILY NEEDED TAKING PHENERGAN 25 MG SUPPOSITORY 1 SUPPOSITORY OR 25 MG TABAS NEEDED RECTAL EVERY 6 HRS TAKING BENADRYL 25 MG CAPSULE 1 CAPSULE ORALLY EVERY 6 HRS NEEDED TAKING VITAMIN D3 2000 UNIT CAPSULE 1 TABLET ORALLY ONCE A DAY TAKING DULCOLAX 5 MG TABLET DELAYED RELEASE 2 TABLETS NEEDED FOR CONSTIPATION ORALLY ONCE A DAY TAKING SYNTHROID 75 MCG TABLET 1 TABLET ORALLY ONCE A DAY TAKING FENOFIBRATE 160 MG TABLET 1/2 TABLET WITH A MEAL ORALLY ONCE A DAY TAKING ZINC 50 MG TABLET 1 -2 ORALLY ONCE A DAY NEEDED TAKING MAGNESIUM 500 MG TABLET 2500MG 1 TABLET WITH A MEAL ORALLY TWICE DAILY TAKING POTASSIUM GLUCONATE 595 MG TABLET ORALLY ONCE A DAY TAKING OMEGA-3 KRILL OIL 300 MG CAPSULE ORALLY DAILY TAKING CALCIUM 1000 MG 1 TAB ORAL DAILY TAKING PROBIOTIC CAPSULE ORALLY DAILY TAKING GARCINIA CAMBOGIA-CHROMIUM 500-200 MG-MCG TABLET ORALLY DAILY TAKING GINKGO BILOBA 400 MG CAPSULE ORALLY DAILY TAKING ECHINACEA COMB/FERNÁNDEZ SEAL CAPSULE ORALLY DAILY NEEDED TAKING SALINE NASAL SPRAY 0.65 % SOLUTION NASALLY TAKING DEXTROAMPHETAMINE SULFATE ER 10 MG CAPSULE EXTENDED RELEASE 24 HOUR 2 CAPSULES IN AM, 1 AT NOON ORALLY TAKING FOLIC ACID 1 MG TABLET ORALLY TAKING ZANTAC 150 MG TABLET 1 TABLET ORALLY BID TAKING MECLIZINE HCL 25 MG TABLET CHEWABLE 1 TABLET TID ORALLY 3 A DAY TAKING DRONABINOL 5 MG CAPSULE 1 CAPSULE BEFORE LUNCH AND SUPPER ORALLY TWICE A DAY NEEDED TAKING VITAMIN E 400 UNIT TABLET CHEWABLE DIRECTED ORALLY TAKING CINNAMON PLUS CHROMIUM 100-500 MCG-MG CAPSULE ORALLY TAKING 5-HTP 50 MG CAPSULE 1 CAPSULE WITH A MEAL ORALLY ONCE A DAY TAKING ALPRAZOLAM 1 MG TABLET 1 TABLET ORALLY FOUR TIMES A DAY TAKING ELMIRON 100 MG CAPSULE 1 CAPSULE ON AN EMPTY STOMACH ORALLY THREE TIMES A DAY, NOTES: BLOOD THINNER TAKING PYRIDIUM 100 MG TABLET DIRECTED ORALLY THREE TIMES DAILY TAKING TROSPIUM CHLORIDE 20 MG TABLET 1 TABLET AT BEDTIME ON AN EMPTY STOMACH ORALLY BID TAKING LINZESS 145 MCG CAPSULE 1 CAPSULE ORALLY ONCE A DAY TAKING B-12 COMPLIANCE INJECTION 1000 MCG/ML KIT 1 ML INJECTION TAKING NORCO 7.5-325 MG TABLET 1 TABLET ORALLY EVERY 6 HRS PRN PAIN MDD=3 TAKING ZANAFLEX 4 MG TABLET 1 TABLET NEEDED ORALLY FOR SPASMS AND PAIN BEFORE BEDTIME MAY REPEAT IN 5 HRS MDD2 TAKING LISINOPRIL 10 MG TABLET 1/2 TABLET ORALLY ONCE A DAY TAKING AJOVY 225 MG/1.5ML SOLUTION PREFILLED SYRINGE 1.5 ML SUBCUTANEOUS MONTHLY TAKING HYDROXYZINE HCL 25 MG TABLET 1 TABLET NEEDED ORALLY QID NOT-TAKING PREDNISONE (ARNIE) NOT-TAKING TROSPIUM CHLORIDE 20 MG TABLET 1 TABLET AT BEDTIME ON AN EMPTY STOMACH ORALLY ONCE A DAY, NOTES: DUPLICATE NOT-TAKING BELBUCA 150 MCG FILM 1 FILM TO THE GUM BUCALLY EVERY 12 HRS MDD=2 MEDICATION LIST REVIEWED AND RECONCILED WITH THE PATIENT PAST MEDICAL HISTORY FIBROMYALGIA HYPERTENTION HIGH CHOLESTEROL CHRONIC MIGRAINES DYSPAREUNIA HEMANGIOMA SEIZURES/NARCOLEPSY IC KIDNEY STONES IBS GERD CHRONIC PAIN PTSD VITAMIN D DEFICIENCY IRON DEFICIENCY ANEMIA HYPOTHYROIDISM ANXIETY DEPRESSION OSTEOARTHRITIS DDD-C6-7 CERVICAL NEURALGIA DIPLOPIA EXTREMITY PARESTHESIAS GALLBLADDER STONES OVARIAN CYST FIBRIODS HYPOGLYCEMIA BIPOLAR SOFT AFFECTIVE SPECTRUM D/O CARPAL TUNNEL -BILATERAL PATELLO FEMORAL SYNDROME-ZEENAT KNEES RENAL CANCER RIGHT LUMBAR DISC 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 C6-7 PAC MAGNEAISUM DEFICENCY L4-L5 DISC PROTRUSION DEGENERATIVE DISC T9-T10, C5-6, C6-7 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 METABOLIC SYNDROM DIFFICULTY CONCENTRATING/MEMORY LOSS/SPEACH, FORMING WORDS AND THOUGHTS DYSLEXIA DISC SPACE NARROWING L5-S1 MUCOSAL THICKENING/RETENTION CYSTS IN MAXILLARY SINUS RIGHT HYDROSALPINX RIGHT KIDNEY LESION GALL STONES CHROMOPHOBE TUMOR FOLIC ACID DEFICIENCY TWO BLOOD TRANSFUSIONS LOW DENSITY LESION IN SLPEEN EPSTINE-BAR VIRUS ALLERGIES PENICILLIN (FOR ALLERGIES USE ONLY): RASH,ELEVATED TEMP - ALLERGY CYPROHEPTADINE HCL: RASH,HEART PALPITATIONS - ALLERGY DARVOCET-N 50: EXACERBATES HEADACHES - ALLERGY TOPAMAX: PALPITATIONS - ALLERGY REMERON: SEVERE HEADACHES - ALLERGY MOBIC: RECTAL BLEEDING ,ABDOMINAL PAIN - ALLERGY CELEBREX: THROAT EDEMA - ALLERGY NAPROSYN: THROAT EDEMA - ALLERGY EFFEXOR: SEVERE HEADACHES - ALLERGY VERAPAMIL HCL: SOB,LOWER PERIPHAL EDEMA ,ABDOMINAL DISTENTION - ALLERGY LYRICA: ELEVATED TEMP,GUMS RECECDED - ALLERGY DEPAKOTE: HEART PALPITATIONS - ALLERGY FENTANYL: SEVERE ITCHING - ALLERGY NUVIGIL: MIGRAINE HEADACHES,VERTIGO,DIZZINESS - ALLERGY CYMBALTA: HEADACHES - ALLERGY GANDOLINUM MRI DYE: CARDIAC ISSUES - ALLERGY CIPRO: CHEST PAIN,SOB,LBP - ALLERGY NORTRIPYTLINE HCL: HEADACHES - ALLERGY RITALIN: HEART PALPITATIONS - ALLERGY ADHESIVE BANDAGES: SENSITIVITY - ALLERGY CILANTRO: SOB,HEART PALPITATIONS - ALLERGY NKDA: MIGRAINES - ALLERGY SEROQUEL: MULTIPLE SIDE EFFECTS - ALLERGY ABILIFY: CONSTIPATION DEPRESSION - SIDE EFFECTS CELEXA: MIGRAINES - SIDE EFFECTS LAMOTRIGINE: RAGE IRRITABILITY - SIDE EFFECTS ZYPREXA: MIGRAINES - SIDE EFFECTS MOTRIN: CAN NOT HAVE WHILE ON MEDICATION - SIDE EFFECTS ZONISAMIDE: UNABLE TO FUNCTION ZOFRAN: NAUSEA/VOMITING - SIDE EFFECTS MOVANTIK: NAUSEA/VOMITING - SIDE EFFECTS DOBUTAMINE HCL: HIVES - ALLERGY LATUDA: CANT RECALL - SIDE EFFECTS PROPRANOLOL HCL: RECEDING GUMS ASPERTAME: CVA/TIA, MIGRAINES RITALIN: HEART PALPITATON IV DYE LOSARTAN POTASSIUM: CHEST PAIN - ALLERGY SURGICAL HISTORY OVARIES AND FALLOPIAN TUBES AND ADHESION 12/05/15 TUBAL LIGATION 01/06/1993 CYSTOSCOPES X2-3 2006 HYSTERSCOPES X2 08/08/2009 COLONSCOPY ENDOSCOPY LEFT LABRAL TEAR REPAIR WITH A PARTIAL REMOVAL OFCOLLAR BONE 12/23/2004 TOOTH EXTRACTIONS HYSTERSCOPE UTERINE DILATION & SCRAPING 2008 BX RIGHT KIDNEY 03/26/2016 RIGHT PARTIAL NEPHRECTOMY 05/04/16 5 WISDOM TEETH EXTRACTED 1992 VAGINAL HYSTERECTOMY OF UTERUS & CERVIX CHEMICAL DESTRUCTION OF NERVES TO CERVICAL MUSCLES, FACIAL NERVES AND FACIAL MUSCLES 4 MOLARS REMOVED IRON SUPPLEMENT IV THERAPY LAPROSCOPIC SURGERY TO REMOVE FALLOPIAN TUBES, BOTH OVARIES, CYSTS, ADHESIONS, MASSES 2015 ENDOSCOPY AND EGD 2016 R KIDNEY PARTIAL REMOVAL CANCER TUMOR 2016 FAMILY HISTORY FATHER: , [place]-PRIOR TO AGE 50 PROSTATE CANCER, DIAGNOSED WITH HYPERTENSION, CANCER MOTHER: ALIVE, THYROID ISSUES, OTHER, DIABETES, HEART DISEASE SIBLINGS: MIDDLE SISTER- HEART ISSUES 1 BROTHER(S) , 2 SISTER(S) - HEALTHY. 2 SON(S) - HEALTHY. FATHER PROSTATE CANCERBOTH SISTERS WITH MAJOR BACK SURGERY. SOCIAL HISTORY GENERAL: TOBACCO USE ARE YOU A:FORMER SMOKER HOW LONG HAS IT BEEN SINCE YOU LAST SMOKED?> 10 YEARS PAIN CLINIC PFS, CLERGY, PUBLIC HEALTH REFERRALS PFS REFERRAL NEEDED?NO CLERGY REFERRAL NEEDED?NO PUBLIC HEALTH REFERRAL NEEDED?NO WAS THE PROVIDER NOTIFIED OF ANY PERTINENT INFO?NO HAS THE PATIENT BEEN EDUCATED REGARDING HIS/HER PLAN OF CARE?YES HAS THE PATIENT BEEN EDUCATED REGARDING PAIN, THE RISK FOR PAIN, THE IMPORTANCE OF EFFECTIVE PAIN MANAGEMENT, AND THE PAIN ASSESSMENT PROCESS?YES CAFFEINE CAFFEINE USE?NO ADVANCE DIRECTIVE ADVANCE DIRECTIVE DISCUSSED WITH PATIENT:YES YEFRI PRIEST- [phone] KATE RAMÍREZ-SISTER [phone] CHRISTIANITY [id number] OTHER LANGUAGE LANGUAGES SPOKEN:KAZAKH MARITAL STATUS: . ALCOHOL SCREENING DID YOU HAVE A DRINK CONTAINING ALCOHOL IN THE PAST YEAR?NO POINTS0 INTERPRETATIONNEGATIVE RECREATIONAL DRUG USE DRUG USE?NO SEXUAL HX HAD SEX IN THE LAST 12 MONTHS (VAGINAL, ORAL, OR ANAL)?NO HAVE YOU EVER HAD AN STD?NO LEARNING BARRIERS / SPECIAL NEEDS CHANGE FROM LAST VISIT?NO BARRIERS TO LEARNING?NO HEARING IMPAIRED?NO VISION IMPAIRED?NO COGNITIVELY IMPAIRED?NO READINESS TO LEARN?YES LEARNING PREFERENCES?NO LEARNING CAPABILITIES PRESENT?YES EMOTIONAL BARRIERS?YES COMMENTSDOCUMENTED IN NOTES SECTION> BIPOLAR SPECIAL DEVICES?YES CANE SURFACE GRINDER TENDER NEEDED?NO WITH 2 CHILDREN.REVIEWED WITH PT 01/22/18 1429 BVREVIEWED WITH PT 06/19/18 1600 BV. HOSPITALIZATION/MAJOR DIAGNOSTIC PROCEDURE HYSTERECTOMY 01/06/93 08/27/91 CHILDBIRTH 01/05/93 CHILDBIRTH REVIEW OF SYSTEMS REVIEWED BY: PROVIDER: HIRAL JETER MD . CONSTITUTIONAL: ANY CHANGE IN YOUR MEDICAL CONDITION? YES, RHEUMATOID ARTHRITIS . CHILLS NO . FEVER NO . INFECTION: DO YOU HAVE NEW INFECTIONS? NO . DO YOU HAVE HISTORY OF MRSA? NO . MUSCULOSKELETAL: ANY NEW PATTERNS OF PAIN OR NUMBNESS? YES, INCREASED PAIN TO LEFT NECK . GASTROENTEROLOGY: ANY NEW CHANGE IN BOWEL CONTROL? NO . GENITOURINARY: ANY NEW CHANGE IN BLADDER CONTROL? NO . IS THERE A CHANCE YOU COULD BE ? NO . HEMATOLOGY/LYMPH: DO YOU TAKE ANY BLOOD THINNERS? (FOR EXAMPLE- COUMADIN, PLAVIX, AGGRENOX, PLATEL, PRADAXA, OR XARELTO) YES, ELMIRON FOR CYSTITIS . WHEN WAS YOUR LAST DOSE? DATE: TIME: . NEUROLOGY: HAVE YOU FALLEN IN THE PAST 12 MONTHS? YES, PRIOR TO LAST VISIT . ANY NEW EXTREMITY NUMBNESS OR WEAKNESS? YES, LEFT ARM WEAKNESS AND NUMBNESS . CARDIOLOGY: DO YOU HAVE A PACEMAKER OR DEFIBRILLATOR? NO . RESPIRATORY: HAVE YOU BEEN SICK IN THE PAST WEEK? YES, PT STATES SHE GETS CHRONIC FEVERS . FEVER YES . FLU LIKE SYMPTOMS? NO . COUGH NO . INTEGUMENTARY: DO YOU HAVE ANY RASHES OR OPEN SORES? YES, BILAT HAND RASH . ALLERGIC/IMMUNO: ARE YOU ALLERGIC TO IV DYE? YES . ANY NEW ALLERGIES? NO . PSYCHIATRIC: DO YOU HAVE THOUGHTS OF HURTING YOURSELF OR SOMEONE ELSE? NO . ARE YOU ABUSED, NEGLECTED, OR IN AN UNSAFE ENVIRONMENT? YES, DISABLED, LOW SUPPORT NETWORK, PT LIVES W FEW NEIGHBORS . ENDOCRINOLOGY: ARE YOU DIABETIC? NO, HYPOGLYCEMIC . OTHER: DO YOU NEED ANY PRESCRIPTIONS? YES, TIZANIDINE, HYDROCODONE . IF YES, PLEASE LIST: ____ . ANY NEW PROBLEMS WITH YOUR MEDICATIONS? NO . WHEN DID YOU LAST EAT? ____ . WHEN DID YOU LAST DRINK? ____ . WHAT DID YOU LAST DRINK? ____ . NAME OF PERSON DRIVING YOU HOME? ____ . DO YOU HAVE ANY OTHER QUESTIONS OR CONCERNS YES, GETTING PAIN CONTROLLED. PT WAS SEEN BY DR JETER, THROUGH INTERVIEW, PT WAS HOLDING HER FLANK AREA, C/O FLANK PAIN. PT WAS URGED TO GO TO ER FOR FLANK PAIN BY DR JETER, PT DECLINED. I URGED PT TO GO TO ER, OFFERED TO BRING HER IN WHEELCHAIR, PT DECLINED STATING SHE DIDN'T WANT TO SPEND ENTIRE DAY AT ER, SUGGESTED URGENT CARE, PT STATED SHE JUST WANTED TO GO HOME AND GET COMFORTABLE. EM . VITAL SIGNS WT 184.4 LBS, HT 66 IN, BMI 29.76 INDEX, BP 179/128 MM HG, REPEAT BP 150/100 MM HG, HR 106 /MIN, RR 18 /MIN, TEMP 97.0 F, OXYGEN SAT % 96%, NA INITIALS SC 12:30RN IS AWARE OF PT'S BP AND WILL DOA MANUAL.REPEAT B/P IS MANUAL, DR JETER IS AWARE. EM. EXAMINATION GENERAL EXAMINATION: PATIENT IS ALERT O X 3 AND COOPERATIVE. PATIENT CANNOT ABDUCT UPPER EXTREMITIES. LEFT HAND ILLUSIONIST IS REDUCED COMPARED TO RIGHT SIDE. WEAKNESS OF BOTH ARMS, WHILE LEFT ARM IS WEAKER THAN THE RIGHT DURING FLEXION. HYPERPATHIA OVER THE LEFT SHOULDER. MRI OF THE LEFT SHOULDER DONE ON 11/01/2015 SHOWS POST OPERATIVE CHANGES, EVIDENCE OF TENDINITIS, AND ARTHROPATHY OVER THE ARM. ASSESSMENTS SHOULDER PAIN, LEFT - M25.512 (PRIMARY) TREATMENT SHOULDER PAIN, LEFT REFILL NORCO TABLET, 7.5-325 MG, 1 TABLET, ORALLY, EVERY 6 HRS PRN PAIN MDD=3, 30 DAYS, 80, REFILLS 0 START BELBUCA FILM, 75 MCG, 1 FILM TO THE GUM, BUCALLY, EVERY 12 HRS MDD2, 30 DAYS, 60, REFILLS 0 START TIZANIDINE HCL TABLET, 4 MG, 1 TABLET NEEDED, ORALLY FOR SPASMS AND PAIN, BEFORE BEDTIME MAY REPEAT IN 6 HRS MDD2, 30 DAYS, 45, REFILLS 1 CLINICAL NOTES: WE DISCUSSED SEVERAL ISSUES WITH MS. PRIEST'S PAIN MANAGEMENT CASE. I REFILLED THE PATIENT'S NORCO TABLET 7.5-325 MG AND TIZANIDINE TO AID WITH SEVERE PAIN AND SPASTICITY. I STARTED THE PATIENT ON BELBUCA FILM 75 MCG TO BE TAKEN UP TO TWICE DAILY AND WILL REDUCE THE HYDROCODONE TO 2 TABLETS DAILY. THE PATIENT HAS CHRONIC PAIN THAT IS RELATED TO A WORK INJURY FROM 12/19/1999. DUE TO THE PATIENT'S CHRONIC PAIN SHE REQUIRES REGISTRY NP, AROUND THE CLOCK MEDICATION MANAGEMENT FOR WHICH ALTERNATIVE TREATMENT OPTIONS ARE INADEQUATE. PATIENT HAS FAILED THE FOLLOWING MEDICATIONS: OPANA, OXYCONTIN, OXYMORPHONE, PERCOCET, TYLENOL WITH CODEINE, SOMA, ENDOCET, BACLOFEN, CYMBALTA, LIDOCAINE 4% CREAM, LIDOCAINE 5% CREAM AND LIDOCAINE 5% PATCHES, HYDROCODONE, PENNSAID AND MOTRIN. THE PATIENT HAS ALLERGIES TO THE FOLLOWING MEDICATIONS: DARVOCET, MOBIC, CELEBREX, NAPROSYN, EFFEXOR, LYRICA, FENTANYL, CYMBALTA, NORTRIPTYLINE AND MOTRIN. DUE TO THE PATIENT'S CHRONIC PAIN IT IS MEDICALLY NECESSARY FOR THE PATIENT TO BE ON BELBUCA FOR AROUND THE CLOCK MEDICATION MANAGEMENT. THE PATIENT BROUGHT HER MEDICATION IN THEIR ORIGINAL BOTTLES TO TODAY'S VISIT AND WAS ADVISED TO CONTINUE BRINGING THEM TO EACH APPOINTMENT. URINE TOXICOLOGY AND PILL COUNTING PERFORMED ON 11/14/2018 SHOWS CONCURRENT RESULTS. THE PATIENT WILL FOLLOW UP IN 1 MONTH. INSTRUCTIONS WERE GIVEN, QUESTIONS WERE ANSWERED, PATIENT REPORTS UNDERSTANDING AND AGREES WITH THE PLAN. I, LULA AVELAR, DOCUMENTED THE ABOVE INFORMATION ACTING A SCRIBE FOR DR. JETER. I HAVE REVIEWED THE ABOVE DOCUMENT, WRITTEN BY LULA AVELAR SCRIBShyam AND I VERIFY THAT IT IS ACCURATE. . OTHERS NOTES: TIZANIDINE MATERIAL WAS PRINTED,BUPRENORPHINE SUBLINGUAL AND BUCCAL MATERIAL WAS PRINTED. PROCEDURES PN WORKMANS' COMP OPINION IN YOUR OPINION, WAS THE INCIDENT THAT THE PATIENT DESCRIBED THE COMPETENT MEDICAL CAUSE OF THIS INJURY/ILLNESS? YES ARE THE PATIENT'S COMPLAINTS CONSISTENT WITH HIS/HER HISTORY OF THE INJURY/ILLNESS? YES IS THE PATIENT'S HISTORY OF THE INJURY/ILLNESS CONSISTENT WITH YOUR OBJECTIVE FINDING? YES WHAT IS THE PERCENTAGE OF TEMPORARY IMPAIRMENT? MARKED = 75% IS THE PATIENT WORKING? NO DOCTOR ON SITE: HIRAL COLLINS MD PROCEDURE CODES [id number] ESTABILISHED PATIENT [facility] FACILITY CHARGE G8427 CURRENT MEDS W/DOSAGES DOCUMENTED G8730 PAIN ASSESS POS TOOL F/U PLAN DOC DISPOSITION & COMMUNICATION FOLLOW UP 4 WEEKS (REASON: MEDS) ELECTRONICALLY SIGNED BY HIRAL JETER MD, MD ON 03/04/2019 AT 05:47 PM EDT DISCLAIMER : THIS IS A VISIT SUMMARY EXTRACTED FROM THE [employer] CHART. IT IS NOT A COPY OF THE [employer] PROGRESS NOTE. HECTOR
== END ==
LOC: M PAIN 12:15
PROVIDERS: ATTEND Anesthesiology
DX: M25.512 Pain in left shoulder (principal); M79.7 Fibromyalgia; I10 Essential (primary) hypertension; E78.00 Pure hypercholesterolemia, unspecified; G43.709 Chronic migraine without aura, not intractable, without status migrainosus; N94.10 Unspecified dyspareunia; R56.9 Unspecified convulsions; G47.419 Narcolepsy without cataplexy; K58.9 Irritable bowel syndrome, unspecified; K21.9 Gastro-esophageal reflux disease without esophagitis; G89.29 Other chronic pain; F43.10 Post-traumatic stress disorder, unspecified; E55.9 Vitamin D deficiency, unspecified; D50.9 Iron deficiency anemia, unspecified; E03.9 Hypothyroidism, unspecified; F41.9 Anxiety disorder, unspecified; F32.9 Major depressive disorder, single episode, unspecified; M19.90 Unspecified osteoarthritis, unspecified site; M50.323 Other cervical disc degeneration at C6-C7 level; H53.2 Diplopia; M51.26 Other intervertebral disc displacement, lumbar region; R48.0 Dyslexia and alexia; Z87.891 Personal history of nicotine dependence; Z79.899 Other long term (current) drug therapy; Z88.0 Allergy status to penicillin; Z88.6 Allergy status to analgesic agent; Z88.8 Allergy status to other drugs, medicaments and biological substances; Z91.041 Radiographic dye allergy status; Z91.018 Allergy to other foods; Z88.1 Allergy status to other antibiotic agents

== ENCOUNTER → 2019-05-14 | Outpatient (REF) | payer BC, MEDICARE, OTHER | LOC: M LAB REF 17:00 | PROVIDERS: ATTEND Internal Medicine Nephrology | DX: E87.6 Hypokalemia (principal) ==

== ENCOUNTER → 2019-05-29 | Outpatient (CLI) | payer MEDICARE, BC ==
[~2019-05-29] MED LIST changes: +ISOVUE-370 76% 100ML VIAL (Q9967) As Ordered ONE
--- NOTE | 2019-06-01 15:59 | REP ---
CT of the abdomen and pelvis without IV contrast multiphasic imaging after IV contrast. There is no bowel contrast. After IV contrast imaging is initially performed during the arterial phase of enhancement, during the portal venous phase of enhancement and after a 5-minute delay. Comparison is 05/16/2017. There is focal postsurgical cortical atrophy and scarring in the upper/mid pole of the right kidney, unchanged from the comparison study. There is no evidence of tumor recurrence. No other renal masses are identified on the right or the left. There are no renal cysts. There are no renal calculi. There is no hydronephrosis. There is no perinephric stranding. There is no retroperitoneal or mesenteric adenopathy. There is no ascites. There is a phlebolith posterolateral to the urinary bladder on the right, unchanged from prior studies. The visualized lung morales are unremarkable. The hepatic parenchyma is unremarkable. There are surgical clips in the gallbladder fossa, as an interval change. There is mild intrahepatic and extrahepatic biliary duct dilatation, likely secondary to post cholecystectomy state, unchanged. The pancreas is unremarkable. There is a 12 mm splenic cyst, unchanged. Spleen is otherwise unremarkable. The adrenals are unremarkable. The abdominal aorta is unremarkable. There is no periaortic adenopathy or mass. The bowel and mesentery are unremarkable. Pelvis: There is a hysterectomy. Vaginal cuff and adnexa are unremarkable. Pelvic bowel loops are unremarkable. The bladder is unremarkable. There is no ascites or adenopathy. Impression: There has been interim cholecystectomy. There is mild intrahepatic and extrahepatic biliary duct dilatation, likely secondary to the cholecystectomy. There is a stable 12 mm splenic cyst, unchanged. There is chronic stable postsurgical right renal renal cortical scarring , unchanged. Hysterectomy. No ascites, adenopathy or mass. Electronically Signed by Demond Ward MD 06/01/2019 03:51 P
== END ==
LOC: M RAD 17:10
PROVIDERS: ATTEND Internal Medicine Nephrology
DX: N18.2 Chronic kidney disease, stage 2 (mild) (principal)
CPT/HCPCS: 74178; Q9967

== ENCOUNTER → 2019-07-29 | Outpatient (CLI) | payer OTHER ==
[~2019-07-29] MED LIST changes: -ISOVUE-370 76% 100ML VIAL (Q9967) As Ordered ONE
--- NOTE | 2019-08-04 04:46 | ECWPNPC ---
PATIENT NAME: JASPER PRIEST : 1970 GENDER: FEMALE VISIT DATE: 07/29/2019 DISCHARGE DATE: 07/29/19 1457 VISIT LOCKED DATE TIME: PHYSICIAN: ELADIO ALEXANDRA RESOURCE: ELADIO ALEXANDRA REASON FOR APPOINTMENT 1. W/C HISTORY OF PRESENT ILLNESS HISTORY OF PRESENT ILLNESS: PAIN THE PATIENT DESCRIBES THE PAIN... 48 YEAR OLD FEMALE PATIENT WITH A HISTORY OF CHRONIC LEFT SHOULDER PAIN. THE PATIENT DESCRIBES THE PAIN ACHING, BURNING, STABBING, SHOOTING, SHARP, SORE, TENDER, NUMBNESS, PRICKLY, CONTINUOUS, NIGHTLY, AND DAILY WITH A PAIN SCORE OF 5/10 DEPENDING ON PHYSICAL ACTIVITY. THE PATIENT WAS HURT IN A WORK RELATED INJURY ON 12/19/1999 WHILE WORKING AT [employer] WHEN SHE WAS USING A [employer] LIFT AND SOMEONE WAS HOLDING ONTO THE LIFT SHE WAS PULLING IT, WHICH RESULTED IN HER LEFT SHOULDER INJURY. 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 SHE FEELS THE BELBUCA HAS BEEN HELPFUL BUT FEELS AN INCREASED DOSAGE WOULD HELP BETTER MANAGE HER SYMPTOMS. FALL RISK SCREENING: SCREENING :NO FALLS REPORTED IN THE LAST YEAR CURRENT MEDICATIONS TAKING MIRALAX PACKET 1 PACKET MIXED WITH 8 OUNCES OF FLUID ORALLY ONCE A DAY TAKING FLONASE 50 MCG/ACT SUSPENSION 1 PUFF IN EACH NOSTRIL NASALLY ONCE DAILY NEEDED TAKING PHENERGAN 25 MG SUPPOSITORY 1 SUPPOSITORY OR 25 MG TABAS NEEDED RECTAL EVERY 6 HRS TAKING BENADRYL 25 MG CAPSULE 1 CAPSULE ORALLY EVERY 6 HRS NEEDED TAKING VITAMIN D3 2000 UNIT CAPSULE 1 TABLET ORALLY ONCE A DAY TAKING DULCOLAX 5 MG TABLET DELAYED RELEASE 2 TABLETS NEEDED FOR CONSTIPATION ORALLY ONCE A DAY TAKING SYNTHROID 75 MCG TABLET 1 TABLET ORALLY ONCE A DAY TAKING FENOFIBRATE 160 MG TABLET 1/2 TABLET WITH A MEAL ORALLY ONCE A DAY TAKING ZINC 50 MG TABLET 1 -2 ORALLY ONCE A DAY NEEDED TAKING MAGNESIUM 500 MG TABLET 2500MG 1 TABLET WITH A MEAL ORALLY TWICE DAILY TAKING POTASSIUM GLUCONATE 595 MG TABLET ORALLY ONCE A DAY TAKING OMEGA-3 KRILL OIL 300 MG CAPSULE ORALLY DAILY TAKING CALCIUM 1000 MG 1 TAB ORAL DAILY TAKING PROBIOTIC CAPSULE ORALLY DAILY TAKING GARCINIA CAMBOGIA-CHROMIUM 500-200 MG-MCG TABLET ORALLY DAILY TAKING GINKGO BILOBA 400 MG CAPSULE ORALLY DAILY TAKING ECHINACEA COMB/FERNÁNDEZ SEAL CAPSULE ORALLY DAILY NEEDED TAKING SALINE NASAL SPRAY 0.65 % SOLUTION NASALLY TAKING DEXTROAMPHETAMINE SULFATE ER 10 MG CAPSULE EXTENDED RELEASE 24 HOUR 2 CAPSULES IN AM, 1 AT NOON ORALLY TAKING FOLIC ACID 1 MG TABLET ORALLY TAKING ZANTAC 150 MG TABLET 1 TABLET ORALLY BID TAKING MECLIZINE HCL 25 MG TABLET CHEWABLE 1 TABLET TID ORALLY 3 A DAY TAKING DRONABINOL 5 MG CAPSULE 1 CAPSULE BEFORE LUNCH AND SUPPER ORALLY TWICE A DAY NEEDED TAKING VITAMIN E 400 UNIT TABLET CHEWABLE DIRECTED ORALLY TAKING CINNAMON PLUS CHROMIUM 100-500 MCG-MG CAPSULE ORALLY TAKING 5-HTP 50 MG CAPSULE 1 CAPSULE WITH A MEAL ORALLY ONCE A DAY TAKING ALPRAZOLAM 1 MG TABLET 1 TABLET ORALLY FOUR TIMES A DAY TAKING ELMIRON 100 MG CAPSULE 1 CAPSULE ON AN EMPTY STOMACH ORALLY THREE TIMES A DAY, NOTES: BLOOD THINNER TAKING PYRIDIUM 100 MG TABLET DIRECTED ORALLY THREE TIMES DAILY TAKING TROSPIUM CHLORIDE 20 MG TABLET 1 TABLET AT BEDTIME ON AN EMPTY STOMACH ORALLY BID TAKING LINZESS 145 MCG CAPSULE 1 CAPSULE ORALLY ONCE A DAY TAKING B-12 COMPLIANCE INJECTION 1000 MCG/ML KIT 1 ML INJECTION TAKING ZANAFLEX 4 MG TABLET 1 TABLET NEEDED ORALLY FOR SPASMS AND PAIN BEFORE BEDTIME MAY REPEAT IN 5 HRS MDD2 TAKING LISINOPRIL 10 MG TABLET 1/2 TABLET ORALLY ONCE A DAY TAKING HYDROXYZINE HCL 25 MG TABLET 1 TABLET NEEDED ORALLY QID TAKING BELBUCA 75 MCG FILM 1 FILM TO THE GUM BUCALLY EVERY 12 HRS MDD2 TAKING NORCO 7.5-325 MG TABLET 1 TABLET ORALLY EVERY 6 HRS PRN PAIN MDD=3 TAKING TIZANIDINE HCL 4 MG TABLET 1 TABLET NEEDED ORALLY FOR SPASMS AND PAIN BEFORE BEDTIME MAY REPEAT IN 6 HRS MDD2 TAKING AIMOVIG 140 MG/ML SOLUTION AUTO-INJECTOR TAKES 225 MG SUBCUTANEOUS TAKING TYLENOL EXTRA STRENGTH 500 MG TABLET 1 TABLET NEEDED ORALLY EVERY 6 HRS NOT-TAKING AJOVY 225 MG/1.5ML SOLUTION PREFILLED SYRINGE 1.5 ML SUBCUTANEOUS MONTHLY NOT-TAKING PREDNISONE (ARNIE) NOT-TAKING TROSPIUM CHLORIDE 20 MG TABLET 1 TABLET AT BEDTIME ON AN EMPTY STOMACH ORALLY ONCE A DAY, NOTES: DUPLICATE NOT-TAKING BELBUCA 150 MCG FILM 1 FILM TO THE GUM BUCALLY EVERY 12 HRS MDD=2 MEDICATION LIST REVIEWED AND RECONCILED WITH THE PATIENT PAST MEDICAL HISTORY FIBROMYALGIA HYPERTENTION HIGH CHOLESTEROL CHRONIC MIGRAINES DYSPAREUNIA HEMANGIOMA SEIZURES/NARCOLEPSY IC KIDNEY STONES IBS GERD CHRONIC PAIN PTSD VITAMIN D DEFICIENCY IRON DEFICIENCY ANEMIA HYPOTHYROIDISM ANXIETY DEPRESSION OSTEOARTHRITIS DDD-C6-7 CERVICAL NEURALGIA DIPLOPIA EXTREMITY PARESTHESIAS GALLBLADDER STONES OVARIAN CYST FIBRIODS HYPOGLYCEMIA BIPOLAR SOFT AFFECTIVE SPECTRUM D/O CARPAL TUNNEL -BILATERAL PATELLO FEMORAL SYNDROME-ZEENAT KNEES RENAL CANCER RIGHT LUMBAR DISC 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 C6-7 PAC MAGNEAISUM DEFICENCY L4-L5 DISC PROTRUSION DEGENERATIVE DISC T9-T10, C5-6, C6-7 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 METABOLIC SYNDROM DIFFICULTY CONCENTRATING/MEMORY LOSS/SPEACH, FORMING WORDS AND THOUGHTS DYSLEXIA DISC SPACE NARROWING L5-S1 MUCOSAL THICKENING/RETENTION CYSTS IN MAXILLARY SINUS RIGHT HYDROSALPINX RIGHT KIDNEY LESION GALL STONES CHROMOPHOBE TUMOR FOLIC ACID DEFICIENCY TWO BLOOD TRANSFUSIONS LOW DENSITY LESION IN SLPEEN EPSTINE-BAR VIRUS ALLERGIES PENICILLIN (FOR ALLERGIES USE ONLY): RASH,ELEVATED TEMP - ALLERGY CYPROHEPTADINE HCL: RASH,HEART PALPITATIONS - ALLERGY DARVOCET-N 50: EXACERBATES HEADACHES - ALLERGY TOPAMAX: PALPITATIONS - ALLERGY REMERON: SEVERE HEADACHES - ALLERGY MOBIC: RECTAL BLEEDING ,ABDOMINAL PAIN - ALLERGY CELEBREX: THROAT EDEMA - ALLERGY NAPROSYN: THROAT EDEMA - ALLERGY EFFEXOR: SEVERE HEADACHES - ALLERGY VERAPAMIL HCL: SOB,LOWER PERIPHAL EDEMA ,ABDOMINAL DISTENTION - ALLERGY LYRICA: ELEVATED TEMP,GUMS RECECDED - ALLERGY DEPAKOTE: HEART PALPITATIONS - ALLERGY FENTANYL: SEVERE ITCHING - ALLERGY NUVIGIL: MIGRAINE HEADACHES,VERTIGO,DIZZINESS - ALLERGY CYMBALTA: HEADACHES - ALLERGY GANDOLINUM MRI DYE: CARDIAC ISSUES - ALLERGY CIPRO: CHEST PAIN,SOB,LBP - ALLERGY NORTRIPYTLINE HCL: HEADACHES - ALLERGY ADHESIVE BANDAGES: SENSITIVITY - ALLERGY CILANTRO: SOB,HEART PALPITATIONS - ALLERGY NKDA: MIGRAINES - ALLERGY SEROQUEL: MULTIPLE SIDE EFFECTS - ALLERGY ABILIFY: CONSTIPATION DEPRESSION - SIDE EFFECTS CELEXA: MIGRAINES - SIDE EFFECTS LAMOTRIGINE: RAGE IRRITABILITY - SIDE EFFECTS ZYPREXA: MIGRAINES - SIDE EFFECTS MOTRIN: CAN NOT HAVE WHILE ON MEDICATION - SIDE EFFECTS ZONISAMIDE: UNABLE TO FUNCTION ZOFRAN: NAUSEA/VOMITING - SIDE EFFECTS MOVANTIK: NAUSEA/VOMITING - SIDE EFFECTS DOBUTAMINE HCL: HIVES - ALLERGY LATUDA: CANT RECALL - SIDE EFFECTS PROPRANOLOL HCL: RECEDING GUMS ASPERTAME: CVA/TIA, MIGRAINES RITALIN: HEART PALPITATON IV DYE LOSARTAN POTASSIUM: CHEST PAIN - ALLERGY SURGICAL HISTORY OVARIES AND FALLOPIAN TUBES AND ADHESION 12/05/15 TUBAL LIGATION 01/06/1993 CYSTOSCOPES X2-3 2006 HYSTERSCOPES X2 08/08/2009 COLONSCOPY ENDOSCOPY LEFT LABRAL TEAR REPAIR WITH A PARTIAL REMOVAL OFCOLLAR BONE 12/23/2004 TOOTH EXTRACTIONS HYSTERSCOPE UTERINE DILATION & SCRAPING 2008 BX RIGHT KIDNEY 03/26/2016 RIGHT PARTIAL NEPHRECTOMY 05/04/16 5 WISDOM TEETH EXTRACTED 1992 VAGINAL HYSTERECTOMY OF UTERUS & CERVIX CHEMICAL DESTRUCTION OF NERVES TO CERVICAL MUSCLES, FACIAL NERVES AND FACIAL MUSCLES 4 MOLARS REMOVED IRON SUPPLEMENT IV THERAPY LAPROSCOPIC SURGERY TO REMOVE FALLOPIAN TUBES, BOTH OVARIES, CYSTS, ADHESIONS, MASSES 2015 ENDOSCOPY AND EGD 2016 R KIDNEY PARTIAL REMOVAL CANCER TUMOR 2016 FAMILY HISTORY FATHER: , DE-PRIOR TO AGE 50 PROSTATE CANCER, DIAGNOSED WITH HYPERTENSION, OTHER MALIGNANT NEOPLASM OF UNSPECIFIED SITE MOTHER: ALIVE, THYROID ISSUES, DIABETES, UNSPECIFIED HEART DISEASE, OTHER SPECIFIED CONDITIONS INFLUENCING HEALTH STATUS SIBLINGS: MIDDLE SISTER- HEART ISSUES 1 BROTHER(S) , 2 SISTER(S) - HEALTHY. 2 SON(S) - HEALTHY. FATHER PROSTATE CANCERBOTH SISTERS WITH MAJOR BACK SURGERY. SOCIAL HISTORY GENERAL: TOBACCO USE ARE YOU A:FORMER SMOKER HOW LONG HAS IT BEEN SINCE YOU LAST SMOKED?> 10 YEARS DIET: REGULAR. LANGUAGE LANGUAGES SPOKEN:URUGUAYAN RECREATIONAL DRUG USE DRUG USE?NO LEARNING BARRIERS / SPECIAL NEEDS CHANGE FROM LAST VISIT?NO BARRIERS TO LEARNING?NO HEARING IMPAIRED?NO VISION IMPAIRED?NO COGNITIVELY IMPAIRED?NO READINESS TO LEARN?YES LEARNING PREFERENCES?NO LEARNING CAPABILITIES PRESENT?YES EMOTIONAL BARRIERS?YES COMMENTSDOCUMENTED IN NOTES SECTION> BIPOLAR SPECIAL DEVICES?YES CANE DIRECTOR SPORTS NEEDED?NO PAIN CLINIC PFS, CLERGY, PUBLIC HEALTH REFERRALS PFS REFERRAL NEEDED?NO CLERGY REFERRAL NEEDED?NO PUBLIC HEALTH REFERRAL NEEDED?NO WAS THE PROVIDER NOTIFIED OF ANY PERTINENT INFO?NO HAS THE PATIENT BEEN EDUCATED REGARDING HIS/HER PLAN OF CARE?YES HAS THE PATIENT BEEN EDUCATED REGARDING PAIN, THE RISK FOR PAIN, THE IMPORTANCE OF EFFECTIVE PAIN MANAGEMENT, AND THE PAIN ASSESSMENT PROCESS?YES LATEX QUESTIONNAIRE LATEX ALLERGY : HAVE YOU EVER DEVELOPED ANY TYPE OF REACTION AFTER HANDLING LATEX PRODUCTS SUCH RUBBER GLOVES, CONDOMS, DIAPHRAGMS, BALLOONS, SOCKS, OR UNDERWEAR?NO LATEX ALLERGY : HAVE YOU EVER DEVELOPED ANY TYPE OF REACTION DURING OR AFTER DENTAL APPOINTMENT, VAGINAL/RECTAL EXAMINATION, SURGICAL PROCEDURE, OR ANY OTHER EXPOSURE?NO DATE ASKED : 07/24/2019 LATEX RISK : HAVE YOU EVER HAD ANY DIFFICULTY BREATHING OR HIVES AFTER EATING OR HANDLING ANY FRUITS, OR VEGETABLES; SUCH KIWI, BANANAS, STONE FRUITS, OR CHESTNUTSNO LATEX RISK : DO YOU HAVE A PREVIOUS PERSONAL HISTORY OF MORE THAN NINE SURGERIES, SPINA BIFIDA, OR REPEATED CATHERIZATIONS? NO LATEX RISK : ARE YOU FREQUENTLY EXPOSED TO LATEX PRODUCTS IN YOUR OCCUPATION?NO CAFFEINE CAFFEINE USE?NO ADVANCE DIRECTIVE ADVANCE DIRECTIVE DISCUSSED WITH PATIENT:YES YEFRI PRIEST- [phone] KATE RAMÍREZ-SISTER [phone] ANGLICAN [id number] OTHER MARITAL STATUS: . ALCOHOL SCREENING DID YOU HAVE A DRINK CONTAINING ALCOHOL IN THE PAST YEAR?NO POINTS0 INTERPRETATIONNEGATIVE SEXUAL HX HAD SEX IN THE LAST 12 MONTHS (VAGINAL, ORAL, OR ANAL)?NO HAVE YOU EVER HAD AN STD?NO WITH 2 CHILDREN.REVIEWED WITH PT 01/22/18 1429 BVREVIEWED WITH PT 06/19/18 1600 BVREVIEWED WITH PATIENT 07/29/19 LAS. HOSPITALIZATION/MAJOR DIAGNOSTIC PROCEDURE HYSTERECTOMY 01/06/93 08/27/91 CHILDBIRTH 01/05/93 CHILDBIRTH REVIEW OF SYSTEMS REVIEWED BY: PROVIDER: KAR MONTEZ . CONSTITUTIONAL: ANY CHANGE IN YOUR MEDICAL CONDITION? NO GROWTH HAS RETURNED RIGHT KIDNEY, HAS A NEW GANGLION CYST LEFT HAND . CHILLS NO . FEVER NO . INFECTION: DO YOU HAVE NEW INFECTIONS? NO . DO YOU HAVE HISTORY OF MRSA? NO . MUSCULOSKELETAL: ANY NEW PATTERNS OF PAIN OR NUMBNESS? YES INCREASED NUMBNESS IN HANDS . GASTROENTEROLOGY: ANY NEW CHANGE IN BOWEL CONTROL? CONSTIPATION . GENITOURINARY: ANY NEW CHANGE IN BLADDER CONTROL? NO . IS THERE A CHANCE YOU COULD BE ? NO . HEMATOLOGY/LYMPH: DO YOU TAKE ANY BLOOD THINNERS? (FOR EXAMPLE- COUMADIN, PLAVIX, AGGRENOX, PLATEL, PRADAXA, OR XARELTO) NO . WHEN WAS YOUR LAST DOSE? DATE: TIME: . NEUROLOGY: HAVE YOU FALLEN IN THE PAST 12 MONTHS? NO . ANY NEW EXTREMITY NUMBNESS OR WEAKNESS? NO . CARDIOLOGY: DO YOU HAVE A PACEMAKER OR DEFIBRILLATOR? NO . RESPIRATORY: HAVE YOU BEEN SICK IN THE PAST WEEK? NO . FEVER NO . FLU LIKE SYMPTOMS? NO . COUGH NO . INTEGUMENTARY: DO YOU HAVE ANY RASHES OR OPEN SORES? NO . ALLERGIC/IMMUNO: ARE YOU ALLERGIC TO IV DYE? NO . ANY NEW ALLERGIES? NO . PSYCHIATRIC: DO YOU HAVE THOUGHTS OF HURTING YOURSELF OR SOMEONE ELSE? NO . ARE YOU ABUSED, NEGLECTED, OR IN AN UNSAFE ENVIRONMENT? NO . ENDOCRINOLOGY: ARE YOU DIABETIC? NO . OTHER: DO YOU NEED ANY PRESCRIPTIONS? NO . IF YES, PLEASE LIST: ____ . ANY NEW PROBLEMS WITH YOUR MEDICATIONS? NO . WHEN DID YOU LAST EAT? ____ . WHEN DID YOU LAST DRINK? ____ . WHAT DID YOU LAST DRINK? ____ . NAME OF PERSON DRIVING YOU HOME? ____ . DO YOU HAVE ANY OTHER QUESTIONS OR CONCERNS NO . VITAL SIGNS WT 183.0 LBS, HT 66 IN, BMI 29.53 INDEX, BP 153/97 MM HG, HR 92 /MIN, RR 18 /MIN, TEMP 97.4 F, OXYGEN SAT % 99%, SAFE IN ENV? (Y/N) YES, NA INITIALS AW 1417, REVIEWED BY: LUIS ARMANDO. EXAMINATION GENERAL EXAMINATION: GENERALNO ACUTE DISTRESS, WELL NOURISHED AND HYDRATED. PSYCHAPPROPRIATE MOOD AND AFFECT . LUNGS:CLEAR TO AUSCULTATION BILATERALLY, NO WHEEZES, RHONCHI, RALES. HEART:NO MURMURS, REGULAR RATE AND RHYTHM. ASSESSMENTS PAIN IN LEFT SHOULDER - M25.512 (PRIMARY) TREATMENT PAIN IN LEFT SHOULDER INCREASE BELBUCA FILM, 150 MCG, 1 FILM TO THE GUM, BUCALLY, EVERY 12 HRS MDD=2, 30 DAYS, 60 STOP BELBUCA FILM, 75 MCG, 1 FILM TO THE GUM, BUCALLY, EVERY 12 HRS MDD2 CLINICAL NOTES: 48-YEAR-OLD FEMALE IN FOR WORKER'S COMP. CHRONIC PAIN FOLLOW-UP. GIVEN PRESENTING SYMPTOMS AND RESULTS OF PHYSICAL EXAMINATION RECOMMENDED INCREASING BELBUCA 159 G WITH FOLLOW-UP IN 2 MONTHS TO DETERMINE EFFICACY OF TREATMENT. PATIENT HAS EXPRESSED UNDERSTANDING OF AND WAS IN AGREEMENT WITH TREATMENT PLAN. GIVEN TIME TO ASK QUESTIONS AND EXPRESS CONCERNS., ISTOP REGISTRY REVIEWED AND DEMONSTRATES COMPLLIANCE. (REF #[id number] ) BRINGS IN MEDICATIONS WHICH IS APPROPRIATE FOR WHAT WAS DISPENSED. RECENT URINE TOXICOLOGY REVIEWED. NO UNAUTHORIZED MEDICATIONS. NO ILLICIT SUBSTANCES AND PRESCRIBED MEDICATIONS WERE PRESENT. PROCEDURES PN WORKMANS' COMP OPINION IN YOUR OPINION, WAS THE INCIDENT THAT THE PATIENT DESCRIBED THE COMPETENT MEDICAL CAUSE OF THIS INJURY/ILLNESS? YES ARE THE PATIENT'S COMPLAINTS CONSISTENT WITH HIS/HER HISTORY OF THE INJURY/ILLNESS? YES IS THE PATIENT'S HISTORY OF THE INJURY/ILLNESS CONSISTENT WITH YOUR OBJECTIVE FINDING? YES WHAT IS THE PERCENTAGE OF TEMPORARY IMPAIRMENT? MARKED = 75% IS THE PATIENT WORKING? NO DOCTOR ON SITE: HIRAL COLLINS MD PREVENTIVE MEDICINE PAIN CLINIC TEACHING: MEDICATIONS MEDICATION CHANGES REVIEWED WITH PATIENT, PATIENT VERBALIZES UNDERSTANDING. LAS. PROCEDURE CODES FA211 ESTABILISHED PATIENT [facility] CHARGE DISPOSITION & COMMUNICATION FOLLOW UP 2 MONTHS (REASON: LEFT SHOULDER PAIN) ELECTRONICALLY SIGNED BY ALEA RODRIGUEZ ON 08/03/2019 AT 11:34 AM EST DISCLAIMER : THIS IS A VISIT SUMMARY EXTRACTED FROM THE [employer] CHART. IT IS NOT A COPY OF THE [employer] PROGRESS NOTE. HECTOR
== END ==
LOC: M PAIN 14:00
PROVIDERS: ATTEND Family Medicine
DX: M25.512 Pain in left shoulder (principal)

== ENCOUNTER → 2019-11-03 | Outpatient (CLI) | payer OTHER ==
--- NOTE | 2019-11-06 01:40 | ECWPNPC ---
PATIENT NAME: JASPER PRIEST : 1970 GENDER: FEMALE VISIT DATE: 11/03/2019 DISCHARGE DATE: 11/03/19 1616 VISIT LOCKED DATE TIME: PHYSICIAN: ELADIO ALEXANDRA RESOURCE: ELADIO ALEXANDRA REASON FOR APPOINTMENT 1. W/C LEFT SHOULDER HISTORY OF PRESENT ILLNESS HISTORY OF PRESENT ILLNESS: PAIN THE PATIENT DESCRIBES THE PAIN... 49-YEAR-OLD FEMALE IN FOR WORKER'S COMP. CHRONIC PAIN FOLLOW-UP. SHE RATES HER PAIN CURRENTLY AT A 4 OUT OF 10 AND DESCRIBES IT ACHING, SHARP, STABBING, SORE, SHOOTING, AND TENDER. THE PATIENT WAS HURT IN A WORK RELATED INJURY ON 12/19/1999 WHILE WORKING AT [employer] WHEN SHE WAS USING A [employer]CET[employer] LIFT AND SOMEONE WAS HOLDING ONTO THE LIFT SHE WAS PULLING IT, WHICH RESULTED IN HER LEFT SHOULDER INJURY. 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 SHE FEELS THE BELBUCA HAS BEEN HELPFUL. FALL RISK SCREENING: SCREENING :NO FALLS REPORTED IN THE LAST YEAR CURRENT MEDICATIONS TAKING MIRALAX PACKET 1 PACKET MIXED WITH 8 OUNCES OF FLUID ORALLY ONCE A DAY TAKING FLONASE 50 MCG/ACT SUSPENSION 1 PUFF IN EACH NOSTRIL NASALLY ONCE DAILY NEEDED TAKING PHENERGAN 25 MG SUPPOSITORY 1 SUPPOSITORY OR 25 MG TABAS NEEDED RECTAL EVERY 6 HRS TAKING BENADRYL 25 MG CAPSULE 1 CAPSULE ORALLY EVERY 6 HRS NEEDED TAKING VITAMIN D3 2000 UNIT CAPSULE 1 TABLET ORALLY ONCE A DAY TAKING DULCOLAX 5 MG TABLET DELAYED RELEASE 2 TABLETS NEEDED FOR CONSTIPATION ORALLY ONCE A DAY TAKING SYNTHROID 75 MCG TABLET 1 TABLET ORALLY ONCE A DAY TAKING FENOFIBRATE 160 MG TABLET 1/2 TABLET WITH A MEAL ORALLY ONCE A DAY TAKING ZINC 50 MG TABLET 1 -2 ORALLY ONCE A DAY NEEDED TAKING MAGNESIUM 500 MG TABLET 2500MG 1 TABLET WITH A MEAL ORALLY TWICE DAILY TAKING POTASSIUM GLUCONATE 595 MG TABLET ORALLY ONCE A DAY TAKING OMEGA-3 KRILL OIL 300 MG CAPSULE ORALLY DAILY TAKING CALCIUM 1000 MG 1 TAB ORAL DAILY TAKING PROBIOTIC CAPSULE ORALLY DAILY TAKING GARCINIA CAMBOGIA-CHROMIUM 500-200 MG-MCG TABLET ORALLY DAILY TAKING GINKGO BILOBA 400 MG CAPSULE ORALLY DAILY TAKING ECHINACEA COMB/FERNÁNDEZ SEAL CAPSULE ORALLY DAILY NEEDED TAKING SALINE NASAL SPRAY 0.65 % SOLUTION NASALLY TAKING DEXTROAMPHETAMINE SULFATE ER 10 MG CAPSULE EXTENDED RELEASE 24 HOUR 2 CAPSULES IN AM, 1 AT NOON ORALLY TAKING FOLIC ACID 1 MG TABLET ORALLY TAKING MECLIZINE HCL 25 MG TABLET CHEWABLE 1 TABLET TID ORALLY 3 A DAY TAKING DRONABINOL 5 MG CAPSULE 1 CAPSULE BEFORE LUNCH AND SUPPER ORALLY TWICE A DAY NEEDED TAKING VITAMIN E 400 UNIT TABLET CHEWABLE DIRECTED ORALLY TAKING CINNAMON PLUS CHROMIUM 100-500 MCG-MG CAPSULE ORALLY TAKING 5-HTP 50 MG CAPSULE 1 CAPSULE WITH A MEAL ORALLY ONCE A DAY TAKING ALPRAZOLAM 1 MG TABLET 1 TABLET ORALLY FOUR TIMES A DAY TAKING ELMIRON 100 MG CAPSULE 1 CAPSULE ON AN EMPTY STOMACH ORALLY THREE TIMES A DAY, NOTES: BLOOD THINNER TAKING PYRIDIUM 100 MG TABLET DIRECTED ORALLY THREE TIMES DAILY TAKING TROSPIUM CHLORIDE 20 MG TABLET 1 TABLET AT BEDTIME ON AN EMPTY STOMACH ORALLY BID TAKING LINZESS 145 MCG CAPSULE 1 CAPSULE ORALLY ONCE A DAY TAKING B-12 COMPLIANCE INJECTION 1000 MCG/ML KIT 1 ML INJECTION TAKING ZANAFLEX 4 MG TABLET 1 TABLET NEEDED ORALLY FOR SPASMS AND PAIN BEFORE BEDTIME MAY REPEAT IN 5 HRS MDD2 TAKING LISINOPRIL 10 MG TABLET 1/2 TABLET ORALLY ONCE A DAY TAKING HYDROXYZINE HCL 25 MG TABLET 1 TABLET NEEDED ORALLY QID TAKING AIMOVIG 140 MG/ML SOLUTION AUTO-INJECTOR TAKES 225 MG SUBCUTANEOUS TAKING TYLENOL EXTRA STRENGTH 500 MG TABLET 1 TABLET NEEDED ORALLY EVERY 6 HRS TAKING NORCO 7.5-325 MG TABLET 1 TABLET ORALLY EVERY 6 HRS PRN PAIN MDD=3 TAKING TIZANIDINE HCL 4 MG TABLET 1 TABLET NEEDED ORALLY FOR SPASMS AND PAIN BEFORE BEDTIME MAY REPEAT IN 6 HRS MDD2 TAKING BELBUCA 150 MCG FILM 1 FILM TO THE GUM BUCALLY EVERY 12 HRS MDD=2 TAKING MAY HAVE LIDO/PRILO 2.5MG CREAM TOPICALLY FOUR TIMES DAILY NEEDED TAKING PRILOSEC 20 MG CAPSULE DELAYED RELEASE 1 CAPSULE 30 MINUTES HS ORALLY ONCE A DAY NOT-TAKING AJOVY 225 MG/1.5ML SOLUTION PREFILLED SYRINGE 1.5 ML SUBCUTANEOUS MONTHLY NOT-TAKING PREDNISONE (ARNIE) NOT-TAKING TROSPIUM CHLORIDE 20 MG TABLET 1 TABLET AT BEDTIME ON AN EMPTY STOMACH ORALLY ONCE A DAY, NOTES: DUPLICATE DISCONTINUED ZANTAC 150 MG TABLET 1 TABLET ORALLY BID MEDICATION LIST REVIEWED AND RECONCILED WITH THE PATIENT PAST MEDICAL HISTORY FIBROMYALGIA HYPERTENTION HIGH CHOLESTEROL CHRONIC MIGRAINES DYSPAREUNIA HEMANGIOMA SEIZURES/NARCOLEPSY IC KIDNEY STONES IBS GERD CHRONIC PAIN PTSD VITAMIN D DEFICIENCY IRON DEFICIENCY ANEMIA HYPOTHYROIDISM ANXIETY DEPRESSION OSTEOARTHRITIS DDD-C6-7 CERVICAL NEURALGIA DIPLOPIA EXTREMITY PARESTHESIAS GALLBLADDER STONES OVARIAN CYST FIBRIODS HYPOGLYCEMIA BIPOLAR SOFT AFFECTIVE SPECTRUM D/O CARPAL TUNNEL -BILATERAL PATELLO FEMORAL SYNDROME-ZEENAT KNEES RENAL CANCER RIGHT LUMBAR DISC 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 C6-7 PAC MAGNEAISUM DEFICENCY L4-L5 DISC PROTRUSION DEGENERATIVE DISC T9-T10, C5-6, C6-7 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 METABOLIC SYNDROM DIFFICULTY CONCENTRATING/MEMORY LOSS/SPEACH, FORMING WORDS AND THOUGHTS DYSLEXIA DISC SPACE NARROWING L5-S1 MUCOSAL THICKENING/RETENTION CYSTS IN MAXILLARY SINUS RIGHT HYDROSALPINX RIGHT KIDNEY LESION GALL STONES CHROMOPHOBE TUMOR FOLIC ACID DEFICIENCY TWO BLOOD TRANSFUSIONS LOW DENSITY LESION IN SLPEEN EPSTINE-BAR VIRUS ANKYLOSING SPONDYLITIS STAGE 3 KIDNEY DISEASE ALLERGIES PENICILLIN (FOR ALLERGIES USE ONLY): RASH,ELEVATED TEMP - ALLERGY CYPROHEPTADINE HCL: RASH,HEART PALPITATIONS - ALLERGY DARVOCET-N 50: EXACERBATES HEADACHES - ALLERGY TOPAMAX: PALPITATIONS - ALLERGY REMERON: SEVERE HEADACHES - ALLERGY MOBIC: RECTAL BLEEDING ,ABDOMINAL PAIN - ALLERGY CELEBREX: THROAT EDEMA - ALLERGY NAPROSYN: THROAT EDEMA - ALLERGY EFFEXOR: SEVERE HEADACHES - ALLERGY VERAPAMIL HCL: SOB,LOWER PERIPHAL EDEMA ,ABDOMINAL DISTENTION - ALLERGY LYRICA: ELEVATED TEMP,GUMS RECECDED - ALLERGY DEPAKOTE: HEART PALPITATIONS - ALLERGY FENTANYL: SEVERE ITCHING - ALLERGY NUVIGIL: MIGRAINE HEADACHES,VERTIGO,DIZZINESS - ALLERGY CYMBALTA: HEADACHES - ALLERGY GANDOLINUM MRI DYE: CARDIAC ISSUES - ALLERGY CIPRO: CHEST PAIN,SOB,LBP - ALLERGY NORTRIPYTLINE HCL: HEADACHES - ALLERGY ADHESIVE BANDAGES: SENSITIVITY - ALLERGY CILANTRO: SOB,HEART PALPITATIONS - ALLERGY NKDA: MIGRAINES - ALLERGY SEROQUEL: MULTIPLE SIDE EFFECTS - ALLERGY ABILIFY: CONSTIPATION DEPRESSION - SIDE EFFECTS CELEXA: MIGRAINES - SIDE EFFECTS LAMOTRIGINE: RAGE IRRITABILITY - SIDE EFFECTS ZYPREXA: MIGRAINES - SIDE EFFECTS MOTRIN: CAN NOT HAVE WHILE ON MEDICATION - SIDE EFFECTS ZONISAMIDE: UNABLE TO FUNCTION ZOFRAN: NAUSEA/VOMITING - SIDE EFFECTS MOVANTIK: NAUSEA/VOMITING - SIDE EFFECTS DOBUTAMINE HCL: HIVES - ALLERGY LATUDA: CANT RECALL - SIDE EFFECTS PROPRANOLOL HCL: RECEDING GUMS ASPERTAME: CVA/TIA, MIGRAINES RITALIN: HEART PALPITATON IV DYE LOSARTAN POTASSIUM: CHEST PAIN - ALLERGY SURGICAL HISTORY OVARIES AND FALLOPIAN TUBES AND ADHESION 12/05/15 TUBAL LIGATION 01/06/1993 CYSTOSCOPES X2-3 2006 HYSTERSCOPES X2 08/08/2009 COLONSCOPY ENDOSCOPY LEFT LABRAL TEAR REPAIR WITH A PARTIAL REMOVAL OFCOLLAR BONE 12/23/2004 TOOTH EXTRACTIONS HYSTERSCOPE UTERINE DILATION & SCRAPING 2008 BX RIGHT KIDNEY 03/26/2016 RIGHT PARTIAL NEPHRECTOMY 05/04/16 5 WISDOM TEETH EXTRACTED 1992 VAGINAL HYSTERECTOMY OF UTERUS & CERVIX CHEMICAL DESTRUCTION OF NERVES TO CERVICAL MUSCLES, FACIAL NERVES AND FACIAL MUSCLES 4 MOLARS REMOVED IRON SUPPLEMENT IV THERAPY LAPROSCOPIC SURGERY TO REMOVE FALLOPIAN TUBES, BOTH OVARIES, CYSTS, ADHESIONS, MASSES 2015 ENDOSCOPY AND EGD 2016 R KIDNEY PARTIAL REMOVAL CANCER TUMOR 2016 FAMILY HISTORY FATHER: , [place]-PRIOR TO AGE 50 PROSTATE CANCER, DIAGNOSED WITH HYPERTENSION, OTHER MALIGNANT NEOPLASM OF UNSPECIFIED SITE MOTHER: ALIVE, THYROID ISSUES, DIABETES, UNSPECIFIED HEART DISEASE, OTHER SPECIFIED CONDITIONS INFLUENCING HEALTH STATUS SIBLINGS: MIDDLE SISTER- HEART ISSUES 1 BROTHER(S) , 2 SISTER(S) - HEALTHY. 2 SON(S) - HEALTHY. FATHER PROSTATE CANCERBOTH SISTERS WITH MAJOR BACK SURGERY. SOCIAL HISTORY GENERAL: TOBACCO USE ARE YOU A:FORMER SMOKER HOW LONG HAS IT BEEN SINCE YOU LAST SMOKED?> 10 YEARS DIET: REGULAR. 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?NO PAIN CLINIC PFS, CLERGY, PUBLIC HEALTH REFERRALS PFS REFERRAL NEEDED?NO CLERGY REFERRAL NEEDED?NO PUBLIC HEALTH REFERRAL NEEDED?NO WAS THE PROVIDER NOTIFIED OF ANY PERTINENT INFO?NO HAS THE PATIENT BEEN EDUCATED REGARDING HIS/HER PLAN OF CARE?YES HAS THE PATIENT BEEN EDUCATED REGARDING PAIN, THE RISK FOR PAIN, THE IMPORTANCE OF EFFECTIVE PAIN MANAGEMENT, AND THE PAIN ASSESSMENT PROCESS?YES LATEX QUESTIONNAIRE LATEX ALLERGY : HAVE YOU EVER DEVELOPED ANY TYPE OF REACTION AFTER HANDLING LATEX PRODUCTS SUCH RUBBER GLOVES, CONDOMS, DIAPHRAGMS, BALLOONS, SOCKS, OR UNDERWEAR?NO LATEX ALLERGY : HAVE YOU EVER DEVELOPED ANY TYPE OF REACTION DURING OR AFTER DENTAL APPOINTMENT, VAGINAL/RECTAL EXAMINATION, SURGICAL PROCEDURE, OR ANY OTHER EXPOSURE?NO DATE ASKED : 07/24/2019 LATEX RISK : HAVE YOU EVER HAD ANY DIFFICULTY BREATHING OR HIVES AFTER EATING OR HANDLING ANY FRUITS, OR VEGETABLES; SUCH KIWI, BANANAS, STONE FRUITS, OR CHESTNUTSNO LATEX RISK : DO YOU HAVE A PREVIOUS PERSONAL HISTORY OF MORE THAN NINE SURGERIES, SPINA BIFIDA, OR REPEATED CATHERIZATIONS? NO LATEX RISK : ARE YOU FREQUENTLY EXPOSED TO LATEX PRODUCTS IN YOUR OCCUPATION?NO CAFFEINE CAFFEINE USE?NO ADVANCE DIRECTIVE ADVANCE DIRECTIVE DISCUSSED WITH PATIENT:YES YEFRI PRIEST- [phone] KATE RAMÍREZ-SISTER [phone] CONGREGATION [id number] OTHER MARITAL STATUS: . ALCOHOL SCREENING DID YOU HAVE A DRINK CONTAINING ALCOHOL IN THE PAST YEAR?NO POINTS0 INTERPRETATIONNEGATIVE SEXUAL HX HAD SEX IN THE LAST 12 MONTHS (VAGINAL, ORAL, OR ANAL)?NO HAVE YOU EVER HAD AN STD?NO WITH 2 CHILDREN.REVIEWED WITH PT 01/22/18 1429 BVREVIEWED WITH PT 06/19/18 1600 BVREVIEWED WITH PATIENT 07/29/19 LAS. HOSPITALIZATION/MAJOR DIAGNOSTIC PROCEDURE HYSTERECTOMY 01/06/93 08/27/91 CHILDBIRTH 01/05/93 CHILDBIRTH REVIEW OF SYSTEMS REVIEWED BY: PROVIDER: KAR ALEXANDRA PRESS PIPE INSPECTOR-C . CONSTITUTIONAL: ANY CHANGE IN YOUR MEDICAL CONDITION? NO . CHILLS NO . FEVER NO . INFECTION: DO YOU HAVE NEW INFECTIONS? NO . DO YOU HAVE HISTORY OF MRSA? NO . MUSCULOSKELETAL: ANY NEW PATTERNS OF PAIN OR NUMBNESS? NO . GASTROENTEROLOGY: ANY NEW CHANGE IN BOWEL CONTROL? YES, CONSTIPATION . GENITOURINARY: ANY NEW CHANGE IN BLADDER CONTROL? YES,HARD TO START BUT FEEL THE NEED TO GO. . IS THERE A CHANCE YOU COULD BE ? NO . HEMATOLOGY/LYMPH: DO YOU TAKE ANY BLOOD THINNERS? (FOR EXAMPLE- COUMADIN, PLAVIX, AGGRENOX, PLATEL, PRADAXA, OR XARELTO) YES, ELMIRON . WHEN WAS YOUR LAST DOSE? DATE: TIME: . NEUROLOGY: HAVE YOU FALLEN IN THE PAST 12 MONTHS? YES, LAST WEEK FEEDING BIRDS AND SLIPPED . ANY NEW EXTREMITY NUMBNESS OR WEAKNESS? YES, INCREASE WEAKNESS, TINGLING, AND DROPPING THINGS. . CARDIOLOGY: DO YOU HAVE A PACEMAKER OR DEFIBRILLATOR? NO . RESPIRATORY: HAVE YOU BEEN SICK IN THE PAST WEEK? YES, RUNNING TEMPERATURE PT. STATES THIS IS HER BASELINE. . FEVER NO . FLU LIKE SYMPTOMS? NO . COUGH NO . INTEGUMENTARY: DO YOU HAVE ANY RASHES OR OPEN SORES? YES LEFT WRIST AND TOE NAILS . ALLERGIC/IMMUNO: ARE YOU ALLERGIC TO IV DYE? YES . ANY NEW ALLERGIES? NO . PSYCHIATRIC: DO YOU HAVE THOUGHTS OF HURTING YOURSELF OR SOMEONE ELSE? NO . ARE YOU ABUSED, NEGLECTED, OR IN AN UNSAFE ENVIRONMENT? NO . ENDOCRINOLOGY: ARE YOU DIABETIC? NO . OTHER: DO YOU NEED ANY PRESCRIPTIONS? YES, HYDROCODONE, BELBUCA, TIZANIDINE . IF YES, PLEASE LIST: ____ . ANY NEW PROBLEMS WITH YOUR MEDICATIONS? NO . WHEN DID YOU LAST EAT? ____ . WHEN DID YOU LAST DRINK? ____ . WHAT DID YOU LAST DRINK? ____ . NAME OF PERSON DRIVING YOU HOME? ____ . DO YOU HAVE ANY OTHER QUESTIONS OR CONCERNS YES, INTENSE MUSCLE SPASMS . 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 EXAMINATION GENERAL EXAMINATION: GENERALNO ACUTE DISTRESS, WELL NOURISHED AND HYDRATED. PSYCHAPPROPRIATE MOOD AND AFFECT . LUNGS:CLEAR TO AUSCULTATION BILATERALLY, NO WHEEZES, RHONCHI, RALES. HEART:NO MURMURS, REGULAR RATE AND RHYTHM. ASSESSMENTS PAIN IN LEFT SHOULDER - M25.512 (PRIMARY) TREATMENT PAIN IN LEFT SHOULDER REFILL NORCO TABLET, 7.5-325 MG, 1 TABLET, ORALLY, EVERY 6 HRS PRN PAIN MDD=3, 30 DAYS, 80, REFILLS 0 REFILL TIZANIDINE HCL TABLET, 4 MG, 1 TABLET NEEDED, ORALLY FOR SPASMS AND PAIN, BEFORE BEDTIME MAY REPEAT IN 6 HRS MDD2, 30 DAYS, 45, REFILLS 1 REFILL BELBUCA FILM, 150 MCG, 1 FILM TO THE GUM, BUCALLY, EVERY 12 HRS MDD=2, 30 DAYS, 60 CLINICAL NOTES: 49-YEAR-OLD FEMALE IN FOR WORKER'S COMP. CHRONIC PAIN FOLLOW-UP. GIVEN PRESENTING SYMPTOMS AND RESULTS PHYSICAL EXAMINATION RECOMMENDED CONTINUATION OF CURRENT MEDICATION REGIMEN WITH FOLLOW-UP IN 3 MONTHS. PATIENT HAS EXPRESSED UNDERSTANDING OF AND WAS IN AGREEMENT WITH TREATMENT PLAN. GIVEN TIME TO ASK QUESTIONS AND EXPRESS CONCERNS., ISTOP REGISTRY REVIEWED AND DEMONSTRATES COMPLLIANCE. (REF # [id number] ) BRINGS IN MEDICATIONS WHICH IS APPROPRIATE FOR WHAT WAS DISPENSED. RECENT URINE TOXICOLOGY REVIEWED. NO UNAUTHORIZED MEDICATIONS. NO ILLICIT SUBSTANCES AND PRESCRIBED MEDICATIONS WERE PRESENT. PROCEDURES PN WORKMANS' COMP OPINION IN YOUR OPINION, WAS THE INCIDENT THAT THE PATIENT DESCRIBED THE COMPETENT MEDICAL CAUSE OF THIS INJURY/ILLNESS? YES ARE THE PATIENT'S COMPLAINTS CONSISTENT WITH HIS/HER HISTORY OF THE INJURY/ILLNESS? YES IS THE PATIENT'S HISTORY OF THE INJURY/ILLNESS CONSISTENT WITH YOUR OBJECTIVE FINDING? YES WHAT IS THE PERCENTAGE OF TEMPORARY IMPAIRMENT? MARKED = 75% IS THE PATIENT WORKING? NO DOCTOR ON SITE: HIRAL COLLINS MD PROCEDURE CODES FA211 ESTABILISHED PATIENT [facility] FACILITY CHARGE DISPOSITION & COMMUNICATION FOLLOW UP 3 MONTHS (REASON: SHOULDER PAIN WORKER'S COMP.) ELECTRONICALLY SIGNED BY ALEA RODRIGUEZ ON 11/05/2019 AT 08:54 AM EST DISCLAIMER : THIS IS A VISIT SUMMARY EXTRACTED FROM THE [employer] CHART. IT IS NOT A COPY OF THE [employer] PROGRESS NOTE. HECTOR
== END ==
LOC: M PAIN 14:30
PROVIDERS: ATTEND Family Medicine
DX: M25.512 Pain in left shoulder (principal); M79.7 Fibromyalgia; I10 Essential (primary) hypertension; E78.00 Pure hypercholesterolemia, unspecified; G43.709 Chronic migraine without aura, not intractable, without status migrainosus; K58.9 Irritable bowel syndrome, unspecified; K21.9 Gastro-esophageal reflux disease without esophagitis; F43.10 Post-traumatic stress disorder, unspecified; G89.29 Other chronic pain; F41.9 Anxiety disorder, unspecified; F32.9 Major depressive disorder, single episode, unspecified; Z87.891 Personal history of nicotine dependence; Z79.899 Other long term (current) drug therapy; Z88.0 Allergy status to penicillin; Z88.6 Allergy status to analgesic agent; Z91.048 Other nonmedicinal substance allergy status; Z88.8 Allergy status to other drugs, medicaments and biological substances

== ENCOUNTER → 2020-02-03 | Outpatient (CLI) | payer OTHER ==
--- NOTE | 2020-02-05 04:45 | ECWPNPC ---
PATIENT NAME: JASPER PRIEST : 1970 GENDER: FEMALE VISIT DATE: 02/03/2020 DISCHARGE DATE: 02/03/20 1628 VISIT LOCKED DATE TIME: PHYSICIAN: ELADIO ALEXANDRA RESOURCE: ELADIO ALEXANDRA REASON FOR APPOINTMENT 1. 3 MONTH;[email or web address] PAT DONE HISTORY OF PRESENT ILLNESS GENERAL: - 49-YEAR-OLD FEMALE IN FOR CHRONIC PAIN FOLLOW-UP. SHE RATES HER PAIN CURRENTLY AT A 7 OUT OF 10. PATIENT ADMITS TO A RECENT FALL RESULTING IN INCREASED PAIN. SHE STATES SHE IS BEING SEEN BY HER PRIMARY CARE FOR THIS AND WILL SOON HAVE X-RAYS. PAIN SCREENING: PATIENT HAS A COMPLAINT OF ACUTE OR CHRONIC PAIN :YES LOCATION OF PAIN:NECK, BOTH SHOULDERS, LOW BACK INTENSITY OF PAIN (SCALE OF 1 TO 10):7 WHAT DOES YOUR PAIN FEEL LIKE:ACHING, BURNING, CONTINOUS, SHARP, STABBING, THROBBING, SHOOTING DURATION:CONTINOUS, CONSTANT, ALL DAY, MAINLY DURING THE NIGHT PAIN IS INCREASED BY:ACTIVITIES, PROLONGED STANDING PAIN IS DECREASED BY:USE OF PAIN MEDICATIONS, OTHERS REST PAIN HAS INTERFERED WITH THE FOLLOWING:MOOD, RELATIONSHIP WITH OTHERS, ENJOYMENT OF LIFE PLAN/GOALS/TREATMENT/INTERVENTION/FOLLOW UP:SEE PLAN FALL RISK SCREENING: SCREENING :ONE FALL WITH INJURY IN THE PAST YEAR RIGHT LEG DEPRESSION SCREENING: PHQ-2 (2015 EDITION) LITTLE INTEREST OR PLEASURE IN DOING THINGS?NOT AT ALL FEELING DOWN, DEPRESSED, OR HOPELESS?NOT AT ALL TOTAL SCORE0 PAIN CENTER INTAKE QUESTIONS: DO YOU HAVE A HISTORY OF MRSA? :NO DO YOU TAKE A BLOOD THINNERS? :NO DO YOU HAVE ANY BLEEDING DISORDERS? :YES ANEMIA ANY NEW NUMBNESS OR WEAKNESS IN YOUR LEGS OR ARMS? :NO ANY PACEMAKER,DEFIBRILLATOR, OR DORSAL COLUMN STIMULATOR? :NO DO YOU HAVE ANY RASHES OR OPEN SORES? :NO ARE YOU ALLERGIC TO IV DYE? :NO ARE YOU DIABETIC? :NO ANY NEW PROBLEMS WITH YOUR MEDICATIONS? :NO HAVE YOU RECEIVED A VACCINE IN THE PAST 30 DAYS? :NO DO YOU PLAN TO RECEIVE A VACCINE IN THE NEXT 21 DAYS? :NO DO YOU NEED ANY PRESCRIPTION? :YES TIZANIDINE, BELBUCA, HYDROCODONE DO YOU TAKE ANY IMMUNOSUPPRESSIVE MEDICATIONS? :NO NURSING NOTE: -. ALLERGIES NO[ALLERGIES VERIFIED] REVIEW OF SYSTEMS CONSTITUTIONAL: ANY RECENT FEVER OR ILLNESS NO . CHILLS NO . GASTROENTEROLOGY: BOWEL INCONTINENCE NO . ANY NEW CHANGE IN BOWEL CONTROL? NO . ABDOMINAL PAIN NO . CONSTIPATION NO . GENITOURINARY: ANY NEW CHANGE IN BLADDER CONTROL? NO . URINARY INCONTINENCE NO . CARDIOLOGY: CHEST PRESSURE NO . CHEST PAIN NO . RESPIRATORY: COUGH NO . SHORTNESS OF BREATH YES, REPORTS COLLAPSED LOWER LUNG LOBES STILL HEALING . EXAMINATION GENERAL EXAMINATION: PSYCHAPPROPRIATE MOOD AND AFFECT , ORIENTED X 3. ASSESSMENTS PAIN IN LEFT SHOULDER - M25.512 (PRIMARY) TREATMENT PAIN IN LEFT SHOULDER INCREASE TIZANIDINE HCL CAPSULE, 6 MG, 1 TABLET NEEDED, ORALLY, BEFORE BEDTIME MAY REPEAT IN 6 HRS MDD2, 30 DAYS, 45, REFILLS 1 REFILL BELBUCA FILM, 150 MCG, 1 FILM TO THE GUM, BUCALLY, EVERY 12 HRS MDD=2, 30 DAYS, 60 CLINICAL NOTES: 49-YEAR-OLD FEMALE IN FOR CHRONIC PAIN FOLLOW-UP. GIVEN PRESENTING SYMPTOMS RECOMMEND INCREASING TIZANIDINE TO 6 MG WITH FOLLOW-UP IN 2 MONTHS. PATIENT HAS EXPRESSED UNDERSTANDING OF AND WAS IN AGREEMENT WITH TREATMENT PLAN. GIVEN TIME TO ASK QUESTIONS AND EXPRESS CONCERNS. ISTOP REGISTRY REVIEWED AND DEMONSTRATES COMPLLIANCE. (REF # [id number] ) BRINGS IN MEDICATIONS WHICH IS APPROPRIATE FOR WHAT WAS DISPENSED. RECENT URINE TOXICOLOGY REVIEWED. NO UNAUTHORIZED MEDICATIONS. NO ILLICIT SUBSTANCES AND PRESCRIBED MEDICATIONS WERE PRESENT. , VISIT SHE WAS BILLED BASED ON TIME SPENT WITH PATIENT. TIME SPENT WITH PATIENT 12 MINUTES. OTHERS REFILL NORCO TABLET, 7.5-325 MG, 1 TABLET NEEDED, ORALLY, EVERY 6 HRS MDD 3, 30 DAYS, 80 NOTES: VITALS NOT OBTAINED DUE TO VIRTUAL VISIT, PRE SCREENING COMPLETED, 02/02/20,NA . DISPOSITION & COMMUNICATION FOLLOW UP 2 MONTHS (REASON: SHOULDER PAIN) ELECTRONICALLY SIGNED BY ALEA RODRIGUEZ ON 02/04/2020 AT 09:16 AM EDT DISCLAIMER : THIS IS A VISIT SUMMARY EXTRACTED FROM THE [employer] CHART. IT IS NOT A COPY OF THE [employer] PROGRESS NOTE. HECTOR
== END ==
LOC: M PAIN 14:30
PROVIDERS: ATTEND Family Medicine
DX: M25.512 Pain in left shoulder (principal)

== ENCOUNTER → 2020-12-14 | Outpatient (CLI) | payer OTHER ==
--- NOTE | 2020-12-21 01:49 | ECWPNPC ---
PATIENT NAME: JASPER PRIEST : 1970 GENDER: FEMALE VISIT DATE: 12/14/2020 DISCHARGE DATE: 12/14/20 1529 VISIT LOCKED DATE TIME: PHYSICIAN: ELADIO ALEXANDRA RESOURCE: ELADIO ALEXANDRA REASON FOR APPOINTMENT 1. W/C MED MANAGEMENT HISTORY OF PRESENT ILLNESS GENERAL: - 50-YEAR-OLD FEMALE FOR WORKER'S COMP. CHRONIC PAIN FOLLOW-UP. SHE RATES HER PAIN CURRENTLY AT A 6 OUT OF 10 AND DESCRIBED IT CONTINUOUS, SHARP, AND SHOOTING. PATIENT FEELS HER MEDICATIONS ARE HELPFUL AND BUT DOES ADMIT TO SOME CONSTIPATION AT TIMES. SHE FURTHER ADMITS TO DECREASED RANGE OF MOTION OF HER NECK. PATIENT DOES ADMIT TO PHYSICAL THERAPY IN THE PAST WITH GOOD RESULTS. FALL RISK SCREENING: SCREENING A FEW FALLS REPORTED IN THE LAST YEAR WITH INJURY. PATIENT DID NOT SEEK IMMEDIATE MEDICAL TREATMENT.. PAIN SCREENING: PATIENT HAS A COMPLAINT OF ACUTE OR CHRONIC PAIN :YES LOCATION OF PAIN:LEFT SHOULDER INTENSITY OF PAIN (SCALE OF 1 TO 10):6 WHAT DOES YOUR PAIN FEEL LIKE:CONTINOUS, SHARP, SHOOTING DURATION:CONTINOUS PAIN IS INCREASED BY:ACTIVITIES, PROLONGED STANDING PAIN IS DECREASED BY:USE OF PAIN MEDICATIONS NURSING NOTE: -. PAIN CENTER INTAKE QUESTIONS: DO YOU HAVE A HISTORY OF MRSA? :NO DO YOU TAKE A BLOOD THINNERS? :YES ELMIRON DO YOU HAVE ANY BLEEDING DISORDERS? :YES CHRONIC ANEMIA ANY NEW NUMBNESS OR WEAKNESS IN YOUR LEGS OR ARMS? :YES INCREASING NUMBNESS AND WEAKNESS IN ARMS ANY PACEMAKER,DEFIBRILLATOR, OR DORSAL COLUMN STIMULATOR? :NO DO YOU HAVE ANY RASHES OR OPEN SORES? :NO ARE YOU ALLERGIC TO IV DYE? :NO ARE YOU DIABETIC? :NO HYPOGLYCEMIA ANY NEW PROBLEMS WITH YOUR MEDICATIONS? :NO HAVE YOU RECEIVED A VACCINE IN THE PAST 30 DAYS? :NO DO YOU PLAN TO RECEIVE A VACCINE IN THE NEXT 21 DAYS? :NO DO YOU NEED ANY PRESCRIPTION? :NO DO YOU TAKE ANY IMMUNOSUPPRESSIVE MEDICATIONS? :NO DO YOU HAVE ANY KIDNEY OR LIVER DISEASE? :YES KIDNEY STAGE 3 AND LIVER. IS THERE A CHANCE YOU COULD BE ? :NO ARE YOU BREAST FEEDING? :NO CURRENT MEDICATIONS TAKING TIZANIDINE HCL 6 MG CAPSULE 1 TABLET NEEDED ORALLY BEFORE BEDTIME MAY REPEAT IN 6 HRS MDD2 TAKING BELBUCA 150 MCG FILM 1 FILM TO THE GUM BUCALLY EVERY 12 HRS MDD=2 TAKING HYDROCODONE-ACETAMINOPHEN 7.5-325 MG TABLET 1 TABLET NEEDED ORALLY EVERY 6 HRS MDD 3 TAKING GABAPENTIN 800 MG TABLET 1 TABLET ORALLY ONCE A DAY MEDICATION LIST REVIEWED AND RECONCILED WITH THE PATIENT PAST MEDICAL HISTORY FIBROMYALGIA HYPERTENTION HIGH CHOLESTEROL CHRONIC MIGRAINES DYSPAREUNIA HEMANGIOMA SEIZURES/NARCOLEPSY IC KIDNEY STONES IBS GERD CHRONIC PAIN PTSD VITAMIN D DEFICIENCY IRON DEFICIENCY ANEMIA HYPOTHYROIDISM ANXIETY DEPRESSION OSTEOARTHRITIS DDD-C6-7 CERVICAL NEURALGIA DIPLOPIA EXTREMITY PARESTHESIAS GALLBLADDER STONES OVARIAN CYST FIBRIODS HYPOGLYCEMIA BIPOLAR SOFT AFFECTIVE SPECTRUM D/O CARPAL TUNNEL -BILATERAL PATELLO FEMORAL SYNDROME-ZEENAT KNEES RENAL CANCER RIGHT LUMBAR DISC 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 C6-7 PAC MAGNEAISUM DEFICENCY L4-L5 DISC PROTRUSION DEGENERATIVE DISC 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, C5-6, C6-7 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 METABOLIC SYNDROM DIFFICULTY CONCENTRATING/MEMORY LOSS/SPEACH, FORMING WORDS AND THOUGHTS DYSLEXIA DISC SPACE NARROWING L5-S1 MUCOSAL THICKENING/RETENTION CYSTS IN MAXILLARY SINUS RIGHT HYDROSALPINX RIGHT KIDNEY LESION GALL STONES CHROMOPHOBE TUMOR FOLIC ACID DEFICIENCY TWO BLOOD TRANSFUSIONS LOW DENSITY LESION IN SLPEEN EPSTINE-BAR VIRUS ANKYLOSING SPONDYLITIS STAGE 3 KIDNEY DISEASE ALLERGIES PENICILLIN (FOR ALLERGIES USE ONLY): RASH,ELEVATED TEMP - ALLERGY CYPROHEPTADINE HCL: RASH,HEART PALPITATIONS - ALLERGY DARVOCET-N 50: EXACERBATES HEADACHES - ALLERGY TOPAMAX: PALPITATIONS - ALLERGY REMERON: SEVERE HEADACHES - ALLERGY MOBIC: RECTAL BLEEDING ,ABDOMINAL PAIN - ALLERGY CELEBREX: THROAT EDEMA - ALLERGY NAPROSYN: THROAT EDEMA - ALLERGY EFFEXOR: SEVERE HEADACHES - ALLERGY VERAPAMIL HCL: SOB,LOWER PERIPHAL EDEMA ,ABDOMINAL DISTENTION - ALLERGY LYRICA: ELEVATED TEMP,GUMS RECECDED - ALLERGY DEPAKOTE: HEART PALPITATIONS - ALLERGY FENTANYL: SEVERE ITCHING - ALLERGY NUVIGIL: MIGRAINE HEADACHES,VERTIGO,DIZZINESS - ALLERGY CYMBALTA: HEADACHES - ALLERGY GANDOLINUM MRI DYE: CARDIAC ISSUES - ALLERGY CIPRO: CHEST PAIN,SOB,LBP - ALLERGY NORTRIPYTLINE HCL: HEADACHES - ALLERGY ADHESIVE BANDAGES: SENSITIVITY - ALLERGY CILANTRO: SOB,HEART PALPITATIONS - ALLERGY NKDA: MIGRAINES - ALLERGY SEROQUEL: MULTIPLE SIDE EFFECTS - ALLERGY ABILIFY: CONSTIPATION DEPRESSION - SIDE EFFECTS CELEXA: MIGRAINES - SIDE EFFECTS LAMOTRIGINE: RAGE IRRITABILITY - SIDE EFFECTS ZYPREXA: MIGRAINES - SIDE EFFECTS MOTRIN: CAN NOT HAVE WHILE ON MEDICATION - SIDE EFFECTS ZONISAMIDE: UNABLE TO FUNCTION ZOFRAN: NAUSEA/VOMITING - SIDE EFFECTS MOVANTIK: NAUSEA/VOMITING - SIDE EFFECTS DOBUTAMINE HCL: HIVES - ALLERGY LATUDA: CANT RECALL - SIDE EFFECTS PROPRANOLOL HCL: RECEDING GUMS ASPERTAME: CVA/TIA, MIGRAINES RITALIN: HEART PALPITATON IV DYE LOSARTAN POTASSIUM: CHEST PAIN - ALLERGY SOCIAL HISTORY GENERAL: TOBACCO USE ARE YOU A:FORMER SMOKER HOW LONG HAS IT BEEN SINCE YOU LAST SMOKED?> 10 YEARS LATEX QUESTIONNAIRE LATEX ALLERGY : HAVE YOU EVER DEVELOPED ANY TYPE OF REACTION AFTER HANDLING LATEX PRODUCTS SUCH RUBBER GLOVES, CONDOMS, DIAPHRAGMS, BALLOONS, SOCKS, OR UNDERWEAR?NO LATEX ALLERGY : HAVE YOU EVER DEVELOPED ANY TYPE OF REACTION DURING OR AFTER DENTAL APPOINTMENT, VAGINAL/RECTAL EXAMINATION, SURGICAL PROCEDURE, OR ANY OTHER EXPOSURE?NO LATEX RISK : HAVE YOU EVER HAD ANY DIFFICULTY BREATHING OR HIVES AFTER EATING OR HANDLING ANY FRUITS, OR VEGETABLES; SUCH KIWI, BANANAS, STONE FRUITS, OR CHESTNUTSNO LATEX RISK : DO YOU HAVE A PREVIOUS PERSONAL HISTORY OF MORE THAN NINE SURGERIES, SPINA BIFIDA, OR REPEATED CATHERIZATIONS? NO LATEX RISK : ARE YOU FREQUENTLY EXPOSED TO LATEX PRODUCTS IN YOUR OCCUPATION?NO DATE ASKED : 12/14/2020 ALCOHOL USE: NO. ALCOHOL SCREENING DID YOU HAVE A DRINK CONTAINING ALCOHOL IN THE PAST YEAR?NO POINTS0 INTERPRETATIONNEGATIVE RECREATIONAL DRUG USE DRUG USE?NO CAFFEINE CAFFEINE USE?NO SEXUAL HX HAD SEX IN THE LAST 12 MONTHS (VAGINAL, ORAL, OR ANAL)?NO HAVE YOU EVER HAD AN STD?NO ROMAN CATHOLIC [id number] OTHER LANGUAGE LANGUAGES SPOKEN:NAMIBIAN LEARNING BARRIERS / SPECIAL NEEDS CHANGE FROM LAST VISIT?NO BARRIERS TO LEARNING?NO HEARING IMPAIRED?NO VISION IMPAIRED?NO COGNITIVELY IMPAIRED?NO READINESS TO LEARN?YES LEARNING PREFERENCES?NO LEARNING CAPABILITIES PRESENT?YES EMOTIONAL BARRIERS?YES COMMENTSDOCUMENTED IN NOTES SECTION> BIPOLAR SPECIAL DEVICES?YES CANE SHELLAC POLISHER NEEDED?NO DIET: REGULAR. MARITAL STATUS: . - PFS REFERRAL NEEDED?NO CLERGY REFERRAL NEEDED?NO PUBLIC HEALTH REFERRAL NEEDED?NO WAS THE PROVIDER NOTIFIED OF ANY PERTINENT INFO?NO HAS THE PATIENT BEEN EDUCATED REGARDING HIS/HER PLAN OF CARE?YES HAS THE PATIENT BEEN EDUCATED REGARDING PAIN, THE RISK FOR PAIN, THE IMPORTANCE OF EFFECTIVE PAIN MANAGEMENT, AND THE PAIN ASSESSMENT PROCESS?YES ADVANCE DIRECTIVE ADVANCE DIRECTIVE DISCUSSED WITH PATIENT:YES YEFRI PRIEST- [phone] KATE RAMÍREZ-SISTER [phone] WITH 2 CHILDREN.REVIEWED WITH PT 01/22/18 1429 BVREVIEWED WITH PT 06/19/18 1600 BVREVIEWED WITH PATIENT 07/29/19 LAS. REVIEW OF SYSTEMS CONSTITUTIONAL: ANY RECENT FEVER NO . CHILLS NO . WEIGHT CHANGE OF UNKNOWN REASONS NO . GASTROENTEROLOGY: NEW UNEXPLAINABLE CHANGES IN BOWEL CONTROL NO . CONSTIPATION NO . GENITOURINARY: ANY NEW CHANGE IN BLADDER CONTROL? NO . NEUROLOGY: NEW ONSET DIZZINESS OR NEUROLOGICAL CHANGES NOT MENTIONED NO . NEW NUMBNESS OR PAIN PATTERNS NOT MENTIONED AND PERTINENT TO TODAY'S VISIT NO . CARDIOLOGY: NEW CHEST PRESSURE NO . PATIENT DENIES NO . RESPIRATORY: UNEXPLAINABLE COUGH NO . NEW SHORTNESS OF BREATH NO . VITAL SIGNS WT 193.8 LBS, HT 66 IN, BMI 31.28 INDEX, BP 191/113 MM HG, REPEAT BP 190/94 MM HG, HR 84 /MIN, RR 20 /MIN, TEMP 100.9 F, OXYGEN SAT % 100%, SAFE IN ENV? (Y/N) YES, REVIEWED BY: [place] BP RETAKEN. BP AND TEMP PROVIDED TO PROVIDER. PATIENT STATES SHE WAS SCREENED AT THE ENTRANCE AND ALLOWED IN TO THE PAIN CLINIC. PATIENT STATES SHE WAS NOT TOLD HER TEMPERATURE. ELLIOT BILLINGS MA. EXAMINATION GENERAL EXAMINATION: GENERALNO ACUTE DISTRESS, WELL NOURISHED AND HYDRATED. PSYCHAPPROPRIATE MOOD AND AFFECT . LUNGS:CLEAR TO AUSCULTATION BILATERALLY, NO WHEEZES, RHONCHI, RALES. HEART:NO MURMURS, REGULAR RATE AND RHYTHM. ASSESSMENTS PAIN IN LEFT SHOULDER - M25.512 (PRIMARY) TREATMENT PAIN IN LEFT SHOULDER START AMITIZA CAPSULE, 24 MCG, 1 CAPSULE WITH FOOD AND WATER, ORALLY, TWICE A DAY, 30 DAY(S), 60 NOTES: 50-YEAR-OLD FEMALE IN FOR CHRONIC PAIN FOLLOW-UP. GIVEN PRESENTING SYMPTOMS RECOMMEND RESTARTING PHYSICAL THERAPY AND STARTING AMITIZA FOR OPIATE-INDUCED CONSTIPATION WITH FOLLOW-UP IN 3 MONTHS. PATIENT HAS EXPRESSED UNDERSTANDING OF AND WAS IN AGREEMENT WITH TREATMENT PLAN. GIVEN TIME TO ASK QUESTIONS AND EXPRESS CONCERNS. , ISTOP REGISTRY REVIEWED AND DEMONSTRATES COMPLLIANCE. (REF # [id number] ) BRINGS IN MEDICATIONS WHICH IS APPROPRIATE FOR WHAT WAS DISPENSED. RECENT URINE TOXICOLOGY REVIEWED. NO UNAUTHORIZED MEDICATIONS. NO ILLICIT SUBSTANCES AND PRESCRIBED MEDICATIONS WERE PRESENT. [facility]:MYOFASCIAL RELEASE PROCEDURES PN WORKMANS' COMP OPINION IN YOUR OPINION, WAS THE INCIDENT THAT THE PATIENT DESCRIBED THE COMPETENT MEDICAL CAUSE OF THIS INJURY/ILLNESS? YES ARE THE PATIENT'S COMPLAINTS CONSISTENT WITH HIS/HER HISTORY OF THE INJURY/ILLNESS? YES IS THE PATIENT'S HISTORY OF THE INJURY/ILLNESS CONSISTENT WITH YOUR OBJECTIVE FINDING? YES WHAT IS THE PERCENTAGE OF TEMPORARY IMPAIRMENT? MARKED = 75% IS THE PATIENT WORKING? NO DOCTOR ON SITE: HIRAL COLLINS MD PROCEDURE CODES FA211 ESTABILISHED PATIENT [facility] FACILITY CHARGE DISPOSITION & COMMUNICATION FOLLOW UP 3 MONTHS (REASON: CHRONIC PAIN PHYSICAL THERAPY FOR MYOFASCIAL RELEASE) ELECTRONICALLY SIGNED BY ALEA RODRIGUEZ ON 12/20/2020 AT 09:09 AM EDT DISCLAIMER : THIS IS A VISIT SUMMARY EXTRACTED FROM THE [facility] [place] CHART. IT IS NOT A COPY OF THE [facility] PROGRESS NOTE. HECTOR
== END ==
LOC: M PAIN 14:15
PROVIDERS: ATTEND Family Medicine
DX: M25.512 Pain in left shoulder (principal); G89.29 Other chronic pain; M79.7 Fibromyalgia; G43.909 Migraine, unspecified, not intractable, without status migrainosus; G40.909 Epilepsy, unspecified, not intractable, without status epilepticus; Z86.59 Personal history of other mental and behavioral disorders; Z87.891 Personal history of nicotine dependence; Z88.0 Allergy status to penicillin; Z88.1 Allergy status to other antibiotic agents; Z88.5 Allergy status to narcotic agent; Z88.6 Allergy status to analgesic agent; Z88.8 Allergy status to other drugs, medicaments and biological substances; Z91.09 Other allergy status, other than to drugs and biological substances; Z91.041 Radiographic dye allergy status; Z79.891 Long term (current) use of opiate analgesic; Z79.899 Other long term (current) drug therapy

== ENCOUNTER → 2021-06-19 | Outpatient (CLI) | payer OTHER ==
[~2021-06-19] MED LIST changes: -IBUP200T45 PO; +IBUP200T46 PO
== END ==
LOC: M PAIN 13:45
PROVIDERS: ATTEND Anesthesiology
DX: M25.512 Pain in left shoulder (principal); G89.29 Other chronic pain; M79.7 Fibromyalgia; G43.909 Migraine, unspecified, not intractable, without status migrainosus; K21.9 Gastro-esophageal reflux disease without esophagitis; E55.9 Vitamin D deficiency, unspecified; E03.9 Hypothyroidism, unspecified; Z86.59 Personal history of other mental and behavioral disorders; Z87.891 Personal history of nicotine dependence; Z88.0 Allergy status to penicillin; Z88.1 Allergy status to other antibiotic agents; Z88.5 Allergy status to narcotic agent; Z88.6 Allergy status to analgesic agent; Z88.8 Allergy status to other drugs, medicaments and biological substances; Z91.09 Other allergy status, other than to drugs and biological substances; Z91.041 Radiographic dye allergy status; Z79.891 Long term (current) use of opiate analgesic; Z79.899 Other long term (current) drug therapy

== ENCOUNTER → 2021-11-08 | Outpatient (CLI) | payer OTHER | LOC: M PAIN 14:00 | PROVIDERS: ATTEND Nurse Practitioner Family | DX: M25.512 Pain in left shoulder (principal); G89.29 Other chronic pain; M79.7 Fibromyalgia; G43.909 Migraine, unspecified, not intractable, without status migrainosus; K21.9 Gastro-esophageal reflux disease without esophagitis; E55.9 Vitamin D deficiency, unspecified; E03.9 Hypothyroidism, unspecified; Z86.59 Personal history of other mental and behavioral disorders; Z87.891 Personal history of nicotine dependence; Z88.0 Allergy status to penicillin; Z88.1 Allergy status to other antibiotic agents; Z88.5 Allergy status to narcotic agent; Z88.6 Allergy status to analgesic agent; Z88.8 Allergy status to other drugs, medicaments and biological substances; Z91.018 Allergy to other foods; Z91.041 Radiographic dye allergy status; Z91.09 Other allergy status, other than to drugs and biological substances; Z79.891 Long term (current) use of opiate analgesic; Z79.899 Other long term (current) drug therapy ==

== ENCOUNTER → 2022-06-13 | Outpatient (CLI) | payer OTHER | LOC: M PAIN 10:45 | PROVIDERS: ATTEND Anesthesiology | DX: M25.512 Pain in left shoulder (principal); G89.29 Other chronic pain; M79.7 Fibromyalgia; I10 Essential (primary) hypertension; G43.909 Migraine, unspecified, not intractable, without status migrainosus; K21.9 Gastro-esophageal reflux disease without esophagitis; E55.9 Vitamin D deficiency, unspecified; E03.9 Hypothyroidism, unspecified; Z86.59 Personal history of other mental and behavioral disorders; Z87.891 Personal history of nicotine dependence; Z88.0 Allergy status to penicillin; Z88.1 Allergy status to other antibiotic agents; Z88.5 Allergy status to narcotic agent; Z88.6 Allergy status to analgesic agent; Z88.8 Allergy status to other drugs, medicaments and biological substances; Z91.018 Allergy to other foods; Z91.041 Radiographic dye allergy status; Z91.09 Other allergy status, other than to drugs and biological substances; Z79.891 Long term (current) use of opiate analgesic; Z79.899 Other long term (current) drug therapy ==

== ENCOUNTER → 2022-08-07 | Outpatient (CLI) | payer OTHER | LOC: M PAIN 15:45 | PROVIDERS: ATTEND Nurse Practitioner Family | DX: Z79.891 Long term (current) use of opiate analgesic (principal) ==

== ENCOUNTER → 2022-10-11 | Outpatient (CLI) | payer OTHER | LOC: M PAIN 14:15 | PROVIDERS: ATTEND Anesthesiology | DX: M25.512 Pain in left shoulder (principal); M79.2 Neuralgia and neuritis, unspecified; Z87.891 Personal history of nicotine dependence; Z79.891 Long term (current) use of opiate analgesic; Z79.899 Other long term (current) drug therapy ==

== ENCOUNTER → 2022-12-03 | Outpatient (CLI) | payer OTHER, BC, MEDICARE | LOC: M PAIN 13:45 | PROVIDERS: ATTEND Nurse Practitioner Family | DX: M25.512 Pain in left shoulder (principal); G89.29 Other chronic pain; R73.03 Prediabetes; M79.7 Fibromyalgia; I10 Essential (primary) hypertension; G43.909 Migraine, unspecified, not intractable, without status migrainosus; K21.9 Gastro-esophageal reflux disease without esophagitis; E55.9 Vitamin D deficiency, unspecified; E03.9 Hypothyroidism, unspecified; Z86.59 Personal history of other mental and behavioral disorders; Z87.891 Personal history of nicotine dependence; Z88.0 Allergy status to penicillin; Z88.1 Allergy status to other antibiotic agents; Z88.5 Allergy status to narcotic agent; Z88.6 Allergy status to analgesic agent; Z88.8 Allergy status to other drugs, medicaments and biological substances; Z91.018 Allergy to other foods; Z91.041 Radiographic dye allergy status; Z91.09 Other allergy status, other than to drugs and biological substances; Z79.890 Hormone replacement therapy; Z79.891 Long term (current) use of opiate analgesic; Z79.899 Other long term (current) drug therapy ==

== ENCOUNTER → 2023-12-17 | Outpatient (REF) | payer MEDICARE, BC | LOC: M SFHCRHEU 15:35 | PROVIDERS: ATTEND Internal Medicine Rheumatology | DX: M35.3 Polymyalgia rheumatica (principal); Z15.89 Genetic susceptibility to other disease; I73.00 Raynaud's syndrome without gangrene ==

== ENCOUNTER → 2025-08-04 | Outpatient (REF) | payer MEDICARE, BC ==
[~2025-08-04] MED LIST changes: -DRON5CAP13 PO; +DRON5CAP19 PO; +ECHI400C19 PO; -ECHI400C2 PO; -LIDO1CRE2 TOP; +LIDO4CRE12 TOP; -LIDO4CRE4 TOP; +LIDO5CRE7 TOP
== END ==
LOC: M SFHCRHEU 16:21
PROVIDERS: ATTEND Internal Medicine Rheumatology
DX: Z53.9 Procedure and treatment not carried out, unspecified reason (principal)